=== PATIENT | female | born 1955 | race Caucasian/White ===

== ENCOUNTER → 2016-05-24 | Outpatient (CLI) | payer OTHER ==
[2016-05-24 07:57] LABS: CH 31.2; CHCM 32.9; HDW 2.28; HGB 13.3 gm/dL (11.4-16.0); MCH 30.2 pg (25.0-35.0); MCHC 31.7 g/dL (31.0-37.0); MCV 95.3 fL (80.0-100.0); Mean Platelet Volume 8.3; RBC 4.41 m/uL (3.80-5.40); RDW 12.5 % (11.5-15.5); WBC 7.2 k/uL (3.8-10.6)
[2016-05-24 08:34] LABS: ALT 39 U/L (9-52); AST 32 U/L (14-36); Alkaline Phosphatase 97 U/L (38-126); Anion Gap 10 mmol/L; Blood Urea Nitrogen 13 mg/dL (7-17); Calcium 9.4 mg/dL (8.4-10.2); Carbon Dioxide 25 mmol/L (22-30); Chloride 108 mmol/L (98-107); Cholesterol 213 mg/dL (<200); Glucose 91 mg/dL (74-99); HDL Cholesterol 60 mg/dL (40-60); Non-African American GFR(MDRD) >60 (>60 ml/min/1.73 sqM); Potassium 4.4 mmol/L (3.5-5.1); Sodium 143 mmol/L (137-145); Total Bilirubin 0.6 mg/dL (0.2-1.3); Triglycerides 148 mg/dL (<150)
== END | disposition home or self-care (01) ==
LOC: LABWHC1 07:26
PROVIDERS: ATTEND Internal Medicine
DX: Z13.220 Encounter for screening for lipoid disorders (principal); Z13.9 Encounter for screening, unspecified
CPT/HCPCS: 36415; 80053; 80061; 84443; 85027

== ENCOUNTER → 2017-03-01 | Outpatient (CLI) | payer OTHER ==
--- NOTE | 2017-03-01 15:14 | CT ---
EXAMINATION TYPE: CT sinus wo con DATE OF EXAM: 03/01/2017 COMPARISON: 02/05/2010 HISTORY: Sinusitis, [place] CT DLP: 589 mGycm. Automated Exposure Control for Dose Reduction was Utilized. TECHNIQUE: CT scan of the sinuses is performed without contrast, axial images are obtained, coronal r eformatted images are also reviewed. FINDINGS: The paranasal sinuses including the frontal, ethmoid, sphenoid, and maxillary sinuses bilat erally are well-aerated without abnormal opacification. The ostiomeatal complex is patent bilaterall y on the coronal images. No sami bullosa, Kesha cells, or nasal turbinate mucosal hypertrophy. Fro ntal recesses are patent. Visualized portion of mastoid air cells show no abnormal opacification. The globes are intact bilate rally. Orbits are intact. Exam is not optimized for evaluation of intracranial structures. IMPRESSION: The sinuses are clear and the ostiomeatal complexes are patent. No paranasal sinus diseas e is identified.
== END | disposition home or self-care (01) ==
LOC: RADCTMAIN 13:22
PROVIDERS: ATTEND Otolaryngology
DX: J32.9 Chronic sinusitis, unspecified (principal)
CPT/HCPCS: 70486

== ENCOUNTER → 2017-09-01 | Outpatient (CLI) | payer BC ==
[2017-09-01 11:06] LABS: HCT 42.5 % (34.0-46.0); HGB 13.9 gm/dL (11.4-16.0); MCH 30.3 pg (25.0-35.0); MCHC 32.7 g/dL (31.0-37.0); MCV 92.9 fL (80.0-100.0); Mean Platelet Volume 7.8; Platelet Count 312 k/uL (150-450); RBC 4.57 m/uL (3.80-5.40); RDW 12.6 % (11.5-15.5); WBC 6.5 k/uL (3.8-10.6)
[2017-09-01 11:29] LABS: ALT 42 U/L (9-52); AST 32 U/L (14-36); Albumin 4.2 g/dL (3.5-5.0); Alkaline Phosphatase 95 U/L (38-126); Anion Gap 14 mmol/L; Blood Urea Nitrogen 16 mg/dL (7-17); Calcium 9.5 mg/dL (8.4-10.2); Carbon Dioxide 28 mmol/L (22-30); Chloride 101 mmol/L (98-107); Cholesterol 221 mg/dL (<200); Glucose 83 mg/dL (74-99); HDL Cholesterol 54 mg/dL (40-60); LDL Cholesterol,Calculated 139 mg/dL (0-99); Potassium 4.4 mmol/L (3.5-5.1); Sodium 143 mmol/L (137-145); Total Bilirubin 0.7 mg/dL (0.2-1.3); Total Protein 7.5 g/dL (6.3-8.2); Triglycerides 138 mg/dL (<150)
== END | disposition home or self-care (01) ==
LOC: LABWHC1 09:50
PROVIDERS: ATTEND Internal Medicine
DX: E87.8 Other disorders of electrolyte and fluid balance, not elsewhere classified (principal); E78.4 Other hyperlipidemia; R53.83 Other fatigue
CPT/HCPCS: 36415; 80053; 80061; 85027

== ENCOUNTER → 2018-03-30 | Outpatient (CLI) | payer BC ==
--- NOTE | 2018-03-31 11:17 | MM ---
Reason for exam: screening (asymptomatic). Last mammogram was performed 1 year ago. History: Patient is postmenopausal. Physical Findings: A clinical breast exam by your physician is recommended on an annual basis and results should be correlated with mammographic findings. MG Screening Mammo w CAD Bilateral CC and MLO view(s) were taken. Prior study comparison: March 22, 2017, bilateral MG 3d screening mammo w/cad. March 09, 2016, mammogram, performed at [facility]. There are scattered fibroglandular densities. There is no discrete abnormality. No significant changes when compared with prior studies. ASSESSMENT: Negative, BI-RAD 1 RECOMMENDATION: Routine screening mammogram of both breasts in 1 year.
== END ==
LOC: RADMAMWWP 07:52
PROVIDERS: ATTEND Obstetrics & Gynecology
DX: Z12.31 Encounter for screening mammogram for malignant neoplasm of breast (principal)
CPT/HCPCS: 77067

== ENCOUNTER → 2018-06-16 | Outpatient (CLI) | payer BC ==
--- NOTE | 2018-06-16 16:12 | MR ---
EXAMINATION TYPE: MR lumbar spine wo con DATE OF EXAM: 06/16/2018 COMPARISON: NONE HISTORY: Radiculopathy, lumbar /Spondylosis TECHNIQUE: T1 and T2 axial and sagittal images of the lumbar spine are submitted. FINDINGS: There is no abnormal signal seen within the visualized spinal cord or paraspinal soft tissu es. At T12-L1 there is degenerative disc disease. No disc herniation or canal stenosis. No foraminal encr oachment. At L1-2 there is degenerative disc disease. There is facet arthropathy. No disc herniation or canal s tenosis. No foraminal encroachment. Minimal circumferential disc bulging. At L2-3 there is moderate degenerative disc disease with circumferential disc bulging greater paracen trally and laterally to the right with mild to moderate right foraminal encroachment. Hypertrophy of the facet joints and ligamentum flavum noted. No Canal stenosis. At L3-4 there is degenerative disc disease with circumferential disc bulging and facet arthropathy. T here is mild bilateral foraminal encroachment but no focal herniation or canal stenosis At L4-5 there is degenerative disc disease with broad-based central disc bulging. More advanced facet arthropathy and ligamentum flavum hypertrophy result in borderline to mild central stenosis and bila teral foraminal encroachment. At L5-S1 there is facet arthropathy greater on the left. No focal herniation. Mild circumferential di sc bulging greater laterally to left with mild left-sided foraminal encroachment. No Canal stenosis. Could not exclude a Spondylolysis of L5. No spondylolisthesis. IMPRESSION: 1. Multilevel degenerative disc disease and facet arthropathy result in multilevel foraminal encroach ment as discussed above. 2. Disc bulging paracentrally and greater to the right at L2-L3 extends laterally to the right and mi ld to moderate right foraminal encroachment. 3. Disc bulging and hypertrophic changes L4-L5 results in borderline to mild canal stenosis and bilat eral foraminal encroachment. 4. Disc bulging greater laterally to left L5-S1 results in mild left-sided foraminal encroachment. 5. Upper pole right renal cyst may have a single internal septation recommend follow-up ultrasound. M easures approximately 1.8 cm
== END | disposition home or self-care (01) ==
LOC: RADMRIMAIN 15:00
PROVIDERS: ATTEND Physical Medicine & Rehabilitation
DX: M48.061 Spinal stenosis, lumbar region without neurogenic claudication (principal); M51.16 Intervertebral disc disorders with radiculopathy, lumbar region; M51.17 Intervertebral disc disorders with radiculopathy, lumbosacral region; M46.96 Unspecified inflammatory spondylopathy, lumbar region
CPT/HCPCS: 72148

== ENCOUNTER → 2018-08-03 | Outpatient (CLI) | payer BC ==
--- NOTE | 2018-08-03 14:54 | US ---
EXAMINATION TYPE: US kidneys/renal and bladder DATE OF EXAM: 08/03/2018 COMPARISON: Correlation MRI 06/16/2018 CLINICAL HISTORY: 63-year-old female N28.1 Cyst of kidney, acquired. Right kidney cyst visualized on recent MRI TECHNIQUE: Multiple sonographic images of the kidneys and bladder are obtained. FINDINGS: EXAM MEASUREMENTS: Right Kidney: 9.9 x 5.5 x 4.6 cm Left Kidney: 10.1 x 5.1 x 4.8 cm [facility] [employer] notes:*Technical limitations due to large amount of overlying bowel content Right Kidney: Hypoechoic lesion in the upper pole of the right kidney measures 1.8 x 1.9 x 1.7 cm and seems to correspond to the finding on MRI. A cyst is possible but not diagnostic on the current scan . Left Kidney: no evidence of hydronephrosis Bladder: wnl Bilateral Jets seen: yes IMPRESSION: 1.9 cm right upper pole renal lesion corresponding to the MRI finding. A simple cyst cannot be confir med on ultrasound. A cyst is still possible with echoes representing artifact or debris. Kidney MRI c an provide more definitive tissue characterization and exclude a solid mass.
== END | disposition home or self-care (01) ==
LOC: RADUSWWP 08:44
PROVIDERS: ATTEND Internal Medicine
DX: N28.89 Other specified disorders of kidney and ureter (principal)
CPT/HCPCS: 76770

== ENCOUNTER → 2018-09-05 | Outpatient (CLI) | payer BC ==
[2018-09-05 10:03] LABS: HCT 41.4 % (34.0-46.0); HGB 13.4 gm/dL (11.4-16.0); MCH 30.1 pg (25.0-35.0); MCHC 32.3 g/dL (31.0-37.0); Mean Platelet Volume 8.1; Platelet Count 279 k/uL (150-450); RBC 4.45 m/uL (3.80-5.40); RDW 13.3 % (11.5-15.5); WBC 8.6 k/uL (3.8-10.6)
[2018-09-05 16:05] LABS: Albumin/Globulin Ratio 1.33 (1.60-3.17); Anion Gap 8.5 mmol/L (4.00-12.00); Calcium 9.2 mg/dL (8.7-10.3); Carbon Dioxide 26.5 mmol/L (21.6-31.8); LDL Cholesterol,Calculated 108.2 mg/dL (0.0-131.0); Total Bilirubin 0.7 mg/dL (0.2-1.2); VLDL Calculation 19.8 mg/dL (5.00-40.00)
== END | disposition home or self-care (01) ==
LOC: LABWHC1 07:59
PROVIDERS: ATTEND Internal Medicine
DX: E87.8 Other disorders of electrolyte and fluid balance, not elsewhere classified (principal); E78.41 Elevated Lipoprotein(a); R53.83 Other fatigue
CPT/HCPCS: 36415; 80053; 80061; 85027

== ENCOUNTER 2019-03-12 14:47 | Inpatient (IN) | payer BC ==
[2019-03-12] MEDS ORDERED: SODIUM CHLORIDE 0.9% 1,000 ML IV STA ×2 (15:12→16:14)
[2019-03-12] MEDS ORDERED: KETOROLAC 30 MG/ML 1 ML VIAL IVP STA (15:12)
[2019-03-12 15:21] LABS: Basophils % (A) 0 %; Eosinophils # (A) 0.1 k/uL (0-0.7); Eosinophils % (A) 1 %; HCT 40.6 % (34.0-46.0); HGB 13.2 gm/dL (11.4-16.0); Lymphocytes # (A) 1.9 k/uL (1.0-4.8); Lymphocytes % (A) 19 %; MCH 30.8 pg (25.0-35.0); MCHC 32.5 g/dL (31.0-37.0); MCV 94.8 fL (80.0-100.0); Mean Platelet Volume 7.9; Monocytes # (A) 0.7 k/uL (0-1.0); Monocytes % (A) 7 %; Neutrophils # (A) 6.9 k/uL (1.3-7.7); Neutrophils % (A) 70 %; Platelet Count 279 k/uL (150-450); RBC 4.28 m/uL (3.80-5.40); RDW 12.4 % (11.5-15.5); WBC 9.8 k/uL (3.8-10.6)
[2019-03-12 15:29] LABS: ALT 29 U/L (9-52); AST 20 U/L (14-36); African American GFR (CKD) >90 (>60 ml/min/1.73 sqM); Albumin 3.5 g/dL (3.5-5.0); Alkaline Phosphatase 143 U/L (38-126); Amylase 35 U/L (30-110); Anion Gap 8 mmol/L; Blood Urea Nitrogen 15 mg/dL (7-17); Carbon Dioxide 25 mmol/L (22-30); Chloride 106 mmol/L (98-107); Glucose 108 mg/dL (74-99); Non-African American GFR(CKD) 82 (>60 ml/min/1.73 sqM); Potassium 3.8 mmol/L (3.5-5.1); Sodium 139 mmol/L (137-145)
[2019-03-12 15:33] LABS: INR 0.9 (<1.2); Partial Thromboplastin Time 25.7 sec (22.0-30.0); Prothrombin Time 9.7 sec (9.0-12.0)
--- NOTE | 2019-03-12 15:41 | ED ---
Abdominal Pain HPI - General Chief Complaint: Abdominal Pain Stated Complaint: Abd pain Time Seen by Provider: 03/12/19 14:57 Source: patient Mode of arrival: ambulatory Limitations: no limitations - History of Present Illness Initial Comments: Patient is a 63-year-old female presenting to the emergency Department with complaints of lower abdominal pain as well as right-sided flank pain that has been increasing over the past 3-4 days. Patient states she went to her doctor today who told her she has a UTI but with her abdominal pain she should go into the ER. Patient denies history of kidney stones. Patient describes her pain as very sharp at times and now her lower abdominal pain is described as pressure and even her elastic hands are hurting her. Patient denies any fever, chills, nausea, vomiting, diarrhea. Patient denies any urinary complaints. Patient admits to laparoscopy when she was a teenager, no other abdominal surgeries. Patient has had regular bowel movements. Patient has no other complaints at this time. Upon arrival to the ER, vital signs are stable. - Related Data Allergies Allergy/AdvReac Type Severity Reaction Status Date / Time Sulfa (Sulfonamide Allergy Swelling Verified 03/12/19 14:52 Antibiotics) Review of Systems ROS Statement: Those systems with pertinent positive or pertinent negative responses have been documented in the HPI. ROS Other: All systems not noted in ROS Statement are negative. Past Medical History Past Medical History: Hyperlipidemia Additional Past Medical History / Comment(s): ms History of Any Multi-Drug Resistant Organisms: None Reported Additional Past Surgical History / Comment(s): ganglion cyst removal, expl. lap. fatty tumor fro, left breast Past Psychological History: No Psychological Hx Reported Smoking Status: Never smoker Past Alcohol Use History: None Reported Past Drug Use History: None Reported General Exam - General Exam Comments Initial Comments: GENERAL: Well-appearing, well-nourished and in no acute distress, but appears uncomfortable. HEAD: Atraumatic, normocephalic. EYES: Pupils equal round and reactive to light, extraocular movements intact, sclera anicteric, conjunctiva are normal. ENT: Nares patent, oropharynx clear without exudates. Moist mucous membranes. NECK: Normal range of motion, supple without lymphadenopathy or JVD. LUNGS: Breath sounds clear to auscultation bilaterally and equal. No wheezes rales or rhonchi. HEART: Regular rate and rhythm without murmurs, rubs or gallops. ABDOMEN: Tender to palpation in the lower abdomen, right and left lower quadrants. No flank tenderness. Soft, normoactive bowel sounds. No guarding, no rebound. No masses appreciated. : Deferred EXTREMITIES: Normal range of motion, no pitting or edema. No clubbing or cyanosis. NEUROLOGICAL: Normal speech, normal gait. PSYCH: Normal mood, normal affect. SKIN: Warm, Dry, normal turgor, no rashes or lesions noted. Limitations: no limitations Course Vital Signs 03/12/19 03/12/19 14:48 15:47 Temperature 98.5 F Pulse Rate 133 H 110 H Respiratory 18 16 Rate Blood Pressure 158/93 128/79 O2 Sat by Pulse 99 99 Oximetry Medical Decision Making - Medical Decision Making Patient is 63-year-old female presenting with lower abdominal pain has been increasing over the past 4 days. Patient is tachycardia at 133, rest of vitals are normal, afebrile. Lab work shows no acute abnormalities. Urine is normal. CT the abdomen reveals a new pneumoperitoneum, with suspicious for developing abscess. Patient was given fluids, pain control. Dr. Black was consulted and patient will be admitted for surgical intervention. Dr. Black is requesting a CT with oral contrast. Test is pending at this time. Patient was given dose of Zosyn. Case discussed with Dr. Mendoza. - Lab Data Result diagrams: 03/12/19 15:05 03/12/19 15:05 Lab Results 03/12/19 03/12/19 03/12/19 Range/Units 15:05 15:05 15:05 WBC 9.8 (3.8-10.6) k/uL RBC 4.28 (3.80-5.40) m/uL Hgb 13.2 (11.4-16.0) gm/dL Hct 40.6 (34.0-46.0) % MCV 94.8 (80.0-100.0) fL MCH 30.8 (25.0-35.0) pg MCHC 32.5 (31.0-37.0) g/dL RDW 12.4 (11.5-15.5) % Plt Count 279 (150-450) k/uL Neutrophils % 70 % Lymphocytes % 19 % Monocytes % 7 % Eosinophils % 1 % Basophils % 0 % Neutrophils # 6.9 (1.3-7.7) k/uL Lymphocytes # 1.9 (1.0-4.8) k/uL Monocytes # 0.7 (0-1.0) k/uL Eosinophils # 0.1 (0-0.7) k/uL Basophils # 0.0 (0-0.2) k/uL PT 9.7 (9.0-12.0) sec INR 0.9 (<1.2) APTT 25.7 (22.0-30.0) sec Sodium 139 (137-145) mmol/L Potassium 3.8 (3.5-5.1) mmol/L Chloride 106 (98-107) mmol/L Carbon Dioxide 25 (22-30) mmol/L Anion Gap 8 mmol/L BUN 15 (7-17) mg/dL Creatinine 0.77 (0.52-1.04) mg/dL Est GFR (CKD-EPI)AfAm >90 (>60 ml/min/1.73 sqM) Est GFR (CKD-EPI)NonAf 82 (>60 ml/min/1.73 sqM) Glucose 108 H (74-99) mg/dL Calcium 9.0 (8.4-10.2) mg/dL Total Bilirubin 1.0 (0.2-1.3) mg/dL AST 20 (14-36) U/L ALT 29 (9-52) U/L Alkaline Phosphatase 143 H (38-126) U/L Total Protein 7.0 (6.3-8.2) g/dL Albumin 3.5 (3.5-5.0) g/dL Amylase 35 (30-110) U/L Lipase 76 (23-300) U/L Urine Color Urine Appearance (Clear) Urine pH (5.0-8.0) Ur Specific [place] (1.001-1.035) Urine Protein (Negative) Urine Glucose (UA) (Negative) Urine Ketones (Negative) Urine Blood (Negative) Urine Nitrite (Negative) Urine Bilirubin (Negative) Urine Urobilinogen (<2.0) mg/dL Ur Leukocyte Esterase (Negative) Urine RBC (0-5) /hpf Urine WBC (0-5) /hpf Ur Squamous Epith Cells (0-4) /hpf Calcium Oxalate Crystal (None) /hpf Urine Mucus (None) /hpf 03/12/19 Range/Units 15:30 WBC (3.8-10.6) k/uL RBC (3.80-5.40) m/uL Hgb (11.4-16.0) gm/dL Hct (34.0-46.0) % MCV (80.0-100.0) fL MCH (25.0-35.0) pg MCHC (31.0-37.0) g/dL RDW (11.5-15.5) % Plt Count (150-450) k/uL Neutrophils % % Lymphocytes % % Monocytes % % Eosinophils % % Basophils % % Neutrophils # (1.3-7.7) k/uL Lymphocytes # (1.0-4.8) k/uL Monocytes # (0-1.0) k/uL Eosinophils # (0-0.7) k/uL Basophils # (0-0.2) k/uL PT (9.0-12.0) sec INR (<1.2) APTT (22.0-30.0) sec Sodium (137-145) mmol/L Potassium (3.5-5.1) mmol/L Chloride (98-107) mmol/L Carbon Dioxide (22-30) mmol/L Anion Gap mmol/L BUN (7-17) mg/dL Creatinine (0.52-1.04) mg/dL Est GFR (CKD-EPI)AfAm (>60 ml/min/1.73 sqM) Est GFR (CKD-EPI)NonAf (>60 ml/min/1.73 sqM) Glucose (74-99) mg/dL Calcium (8.4-10.2) mg/dL Total Bilirubin (0.2-1.3) mg/dL AST (14-36) U/L ALT (9-52) U/L Alkaline Phosphatase (38-126) U/L Total Protein (6.3-8.2) g/dL Albumin (3.5-5.0) g/dL Amylase (30-110) U/L Lipase (23-300) U/L Urine Color Yellow Urine Appearance Cloudy H (Clear) Urine pH 5.5 (5.0-8.0) Ur Specific [place] 1.030 (1.001-1.035) Urine Protein 1+ H (Negative) Urine Glucose (UA) Negative (Negative) Urine Ketones Negative (Negative) Urine Blood Small H (Negative) Urine Nitrite Negative (Negative) Urine Bilirubin Negative (Negative) Urine Urobilinogen 2.0 (<2.0) mg/dL Ur Leukocyte Esterase Small H (Negative) Urine RBC 5 (0-5) /hpf Urine WBC 2 (0-5) /hpf Ur Squamous Epith Cells 1 (0-4) /hpf Calcium Oxalate Crystal Moderate H (None) /hpf Urine Mucus Many H (None) /hpf Disposition Clinical Impression: Acute abdomen, Pneumoperitoneum Disposition: ADMITTED IP TO THIS HOSP Condition: Good Is patient prescribed a controlled substance at d/c from ED?: No Referrals: Sena Dorsey MD [Primary Care Provider] - 1-2 days Decision Date: 03/12/19 Decision Time: 16:18
--- NOTE | 2019-03-12 15:57 | CT ---
EXAMINATION TYPE: CT abdomen pelvis w con DATE OF EXAM: 03/12/2019 HISTORY: Right lower quadrant pain. CT DLP: 1167mGycm Automated Exposure Control for Dose Reduction was Utilized. CONTRAST: CT scan of the abdomen and pelvis is performed without oral with IV Contrast, patient injected with 1 00 mL of Isovue 300. COMPARISON: None. FINDINGS: LUNG BASES: No significant abnormality is appreciated. LIVER/GB: Contracted gallbladder. PANCREAS: No significant abnormality is seen. SPLEEN: No significant abnormality is seen. ADRENALS: No significant abnormality is seen. KIDNEYS: Nonspecific 1.6 cm slightly hyperdense rounded lesion posteriorly and medially upper pole le ft kidney has suggestion of peripheral rim enhancement. Neoplasm at this level cannot be excluded. Fi ndings correlate to MRI lumbar spine and kidney ultrasound from June and July. BOWEL: Suboptimal evaluation without enteric contrast. There is normal-appearing appendix extending f rom cecum seen best on coronal image 55 for reference. There is no suspicious small or large bowel di latation. Some scattered colonic diverticula most prominent in the sigmoid colon. Mild to moderate wa ll thickening in the sigmoid colon is present. Terminal ileum is poorly distended with mild wall thic kening. There is mild to moderate wall thickening involving distal ileal loops in the right pelvis wi th surrounding ill-defined fluid and fat stranding centered in the pelvis. Just superior to the bladd er left of midline there is thin-walled 3.1 x 2.0 cm fluid collection with air-fluid level axial imag e 77. There is significant pneumoperitoneum most prominent in the upper abdomen. UTERUS/ADNEXA: Anteverted uterus is seen. Central hypodense areas are somewhat prominent for postmeno pausal female. No adnexal masses. LYMPH NODES: No greater than 1cm abdominal or pelvic lymph nodes are appreciated. OSSEOUS STRUCTURES: No significant abnormality is seen. OTHER: No significant additional abnormality is seen. IMPRESSION: 1. New pneumoperitoneum most prominent in the upper abdomen. Moderate inflammatory change throughout the pelvis with reactive enterocolitis thought present. Suspicious small thin-walled fluid near infla mmatory change is suspicious for developing abscess. Source of inflammation perforation not clearly i dentified. Urgent surgical consult is advised. 2. Posterior medial upper pole right renal lesion remains suspicious, peripheral rim type enhancement is thought present, neoplasm cannot be excluded. Nonemergent surgical and/or interventional follow-u p advised. 3. Some prominence of the central endometrium for postmenopausal female warrants follow-up with pelvi c ultrasound to further evaluate. Critical results of pneumoperitoneum conveyed to ordering emergency care room physician clinical education assistant via telephone at time of dictation.
[2019-03-12] MEDS ORDERED: PIPERACILLIN-TAZOBACTAM 3.375 GM in SODIUM CHLORIDE 0.9% 100 ML IVPB STA (16:01)
[2019-03-12] MEDS ORDERED: MORPHINE SULFATE 4 MG/ML SYRINGE IVP STA ×2 (16:05→18:39)
[2019-03-12] MEDS ORDERED: IOPAMIDOL CONTRAST (ORAL USE) VIAL PO PRN (16:09)
[2019-03-12 16:14] LABS: Appearance,Urine Cloudy (Clear); Bilirubin,Urine Negative (Negative); Blood,Urine Small (Negative); Calcium Oxalate Crystals,Urine Moderate /hpf; Color,Urine Yellow; Glucose,Urine (UA) Negative (Negative); Ketones,Urine Negative (Negative); Leukocyte Esterase,Urine Small (Negative); Mucus,Urine Many /hpf; Nitrite,Urine Negative (Negative); PH, Urine 5.5 (5.0-8.0); Protein,Urine 1+ (Negative); RBC,Urine 5 /hpf (0-5); Squamous Epithelial Cell,Urine 1 /hpf (0-4); WBC,Urine 2 /hpf (0-5)
[2019-03-12] MEDS ORDERED: MORPHINE SULFATE 4 MG/ML SYRINGE IV PRN (16:17)
[2019-03-12] MEDS ORDERED: NALOXONE 0.4 MG/ML 1 ML VIAL IV PRN (16:17)
[2019-03-12] MEDS ORDERED: ONDANSETRON 4 MG/2 ML VIAL IVP PRN (16:17)
[2019-03-12] MEDS: SODIUM CHLORIDE 0.9% 1,000 ML IV SCH (16:31)
--- NOTE | 2019-03-12 18:42 | CT ---
EXAMINATION TYPE: CT abdomen pelvis wo con DATE OF EXAM: 03/12/2019 COMPARISON: 03/12/2019 HISTORY: Abdominal pain CT DLP: 743.3 mGycm Automated exposure control for dose reduction was used. TECHNIQUE: Helical acquisition of images was performed from the lung bases through the pelvis. Contr ast was administered per protocol. FINDINGS: LUNG BASES: No significant abnormality is appreciated. LIVER/GB: Unremarkable unenhanced morphology. No radiopaque calculi in the gallbladder. PANCREAS: No significant abnormality is seen. SPLEEN: No splenomegaly. ADRENALS: No nodules or thickening of the adrenal glands. KIDNEYS: Approximately 1.6 cm upper pole renal lesion is somewhat suspicious and complex. This could be further evaluated with renal ultrasound or MRI of the abdomen. FREE AIR: Yes as detailed below ADENOPATHY: No greater than 1cm abdominal or pelvic lymph nodes are appreciated. REPRODUCTIVE ORGANS: Uterus is surgically absent URINARY BLADDER: No significant abnormality is seen. OSSEOUS STRUCTURES: No significant abnormality is seen. BOWEL: There is redemonstration of a fluid collection that has increased in size slightly from the p rior of 03/12/2019 cranial to the urinary bladder and anterior to the uterus demonstrating an air-flui d level now measuring 3.5 x 2.0 cm and previously measuring 3.1 x 2.0 cm. There is local inflammatory fat stranding in the pelvis surrounding both the sigmoid colon and loops of small bowel. Small amoun t of free fluid is also seen. Numerous oral contrast extends to the level of the transverse colon. No focal contrast extravasation is seen. There is some thickening of the gastric antrum. There is also thickening of the sigmoid colon. Sigmoid diverticula are present as well as other pancolonic divertic cb. Appendix is air-filled and within normal limits. No dilated large or small bowel. There are nume braydon foci of pneumoperitoneum as seen on the prior. IMPRESSION: REDEMONSTRATION OF PNEUMOPERITONEUM COMMUNICATED WITH THE ER ON THE STUDY EARLIER THE SAME DATE. O RAL CONTRAST HAS BEEN ADMINISTERED ALTHOUGH NO EXTRAVASATION IS SEEN. THERE IS FOCAL THICKENING OF TH E SIGMOID COLON AND GASTRIC ANTRUM AND SOURCE COULD RELATE TO PERFORATED DIVERTICULITIS (MORE LIKELY THERE ARE PHLEGMONOUS CHANGES IN THE PELVIS AND A SMALL ADJACENT ABSCESS) OR PEPTIC ULCER DISEASE OF THE GASTRIC ANTRUM.
[2019-03-12] MEDS ORDERED: HYDROmorphone 1 MG/ML 1 ML SYRINGE IVP STA (18:48)
[2019-03-12] MEDS: HYDROmorphone 1 MG/ML 1 ML SYRINGE IVP PRN (22:05)
[2019-03-13] MEDS: HYDROmorphone 1 MG/ML 1 ML SYRINGE IVP PRN ×2 (02:15→06:48)
[2019-03-13] MEDS: PANTOPRAZOLE 40 MG/10 ML VIAL IV SCH (08:21)
[2019-03-13] MEDS: SODIUM CHLORIDE 0.9% 1,000 ML IV SCH ×2 (08:21→19:56)
[2019-03-13] MEDS ORDERED: FAMOTIDINE 20 MG TAB PO PRN (09:16)
[2019-03-13] MEDS: PIPERACILLIN-TAZOBACTAM 3.375 GM in SODIUM CHLORIDE 0.9% 100 ML IVPB SCH ×3 (09:43→23:03)
[2019-03-13 10:12] LABS: HCT 34.4 % (34.0-46.0); HGB 11.5 gm/dL (11.4-16.0); MCH 31.8 pg (25.0-35.0); MCHC 33.5 g/dL (31.0-37.0); MCV 94.9 fL (80.0-100.0); Mean Platelet Volume 6.7; Platelet Count 269 k/uL (150-450); RBC 3.63 m/uL (3.80-5.40); RDW 12.5 % (11.5-15.5); WBC 9.7 k/uL (3.8-10.6)
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
[2019-03-13 10:17] LABS: INR 0.9 (<1.2); Prothrombin Time 9.5 sec (9.0-12.0)
[2019-03-13 10:21] LABS: ALT 26 U/L (9-52); AST 16 U/L (14-36); African American GFR (CKD) >90 (>60 ml/min/1.73 sqM); Alkaline Phosphatase 121 U/L (38-126); Anion Gap 7 mmol/L; Blood Urea Nitrogen 14 mg/dL (7-17); Calcium 8.7 mg/dL (8.4-10.2); Carbon Dioxide 24 mmol/L (22-30); Chloride 108 mmol/L (98-107); Glucose 77 mg/dL (74-99); Magnesium 1.8 mg/dL (1.6-2.3); Non-African American GFR(CKD) >90 (>60 ml/min/1.73 sqM); Phosphorus 3.6 mg/dL (2.5-4.5); Potassium 4.1 mmol/L (3.5-5.1); Sodium 139 mmol/L (137-145); Total Bilirubin 1.2 mg/dL (0.2-1.3); Total Protein 6.4 g/dL (6.3-8.2)
[2019-03-13] MEDS: KETOROLAC 30 MG/ML 1 ML VIAL IVP PRN ×2 (10:48→17:14)
[2019-03-13] MEDS: ACETAMINOPHEN TAB 325 MG TAB PO PRN (16:01)
--- NOTE | 2019-03-13 16:04 | P.GSHP ---
History of Present Illness H&P Date: 03/13/19 CHIEF COMPLAINT: Abdominal pain HISTORY OF PRESENT ILLNESS: 63-year-old female who presented to the emergency room with a chief complaint of abdominal pain. Patient underwent CT abdomen and pelvis in the emergency room revealing pneumoperitoneum. Focal thickening of the sigmoid colon and gastric antrum. Source could relate to perforated diverticulitis as there are phlegmonous changes in the pelvis and a small adjacent abscess or possible peptic ulcer disease of the gastric antrum. WBC within normal limits. Patient reports improvement in abdominal pain during examination. Currently rating 4/10. She is passing flatus. PAST MEDICAL HISTORY: See list. PAST SURGICAL HISTORY: See list. SOCIAL HISTORY: No illicit drug use. REVIEW OF SYSTEMS: CONSTITUTIONAL: Denies fever or chills. HEENT: Denies blurred vision, vision changes, or eye pain. Denies hemoptysis CARDIOVASCULAR: Denies chest pain or pressure. RESPIRATORY: No shortness of breath. GASTROINTESTINAL: Refer to HPI for pertinent findings HEMATOLOGIC: Denies bleeding disorders. GENITOURINARY: Denies any blood in urine. SKIN: Denies pruitis. Denies rash. PHYSICAL EXAM: VITAL SIGNS: Reviewed. GENERAL: Well-developed in no acute distress. HEENT: No sclera icterus. Extraocular movements grossly intact. Moist buccal mucosa. Head is atraumatic, normocephalic. ABDOMEN: Soft. Nondistended. Minimal tenderness of bilateral lower quadrants. No peritoneal signs. NEUROLOGIC: Alert and oriented. Cranial nerves II through XII grossly intact. ASSESSMENT: 1. Pneumoperitoneum, suspect secondary to diverticulitis with perforation, cannot rule out peptic ulcer disease as computed tomography scan revealed thickening of the gastric antrum. PLAN: NPO except for ice chips Continue antibiotics No surgical intervention recommended at this time Outpatient EGD recommended Nurse practitioner note has been reviewed by physician. Signing provider agrees with the documented findings, assessment, and plan of care. 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, fatty tumor from below right breast breast Past Anesthesia/Blood Transfusion Reactions: No Reported Reaction Past Psychological History: No Psychological Hx Reported Smoking Status: Former smoker Past Alcohol Use History: Rare Past Drug Use History: None Reported - Past Family History Mother Family Medical History: Asthma Additional Family Medical History / Comment(s): diverticulitis Father Family Medical History: Coronary Artery Disease (CAD), Hypertension Medications and Allergies Home Medications Medication Instructions Recorded Confirmed Type Baclofen 10 mg PO HS 03/12/19 03/12/19 History Famotidine [Pepcid] 20 mg PO BID PRN 03/12/19 03/12/19 History Ibuprofen [Motrin] 800 mg PO BID PRN 03/12/19 03/12/19 History Montelukast [Singulair] 10 mg PO HS 03/12/19 03/12/19 History Allergies Allergy/AdvReac Type Severity Reaction Status Date / Time Sulfa (Sulfonamide Allergy Swelling Verified 03/12/19 18:30 Antibiotics) Surgical - Exam Vital Signs Temp Pulse Resp BP Pulse Ox 98.5 F 133 H 18 158/93 99 03/12/19 14:48 03/12/19 14:48 03/12/19 14:48 03/12/19 14:48 03/12/19 14:48 Results - Labs 03/13/19 09:35 03/13/19 09:35 Abnormal Lab Results - Last 24 Hours (Table) 03/12/19 03/13/19 03/13/19 Range/Units 15:30 09:35 09:35 RBC 3.63 L (3.80-5.40) m/uL Chloride 108 H (98-107) mmol/L Albumin 3.0 L (3.5-5.0) g/dL Urine Appearance Cloudy H (Clear) Urine Protein 1+ H (Negative) Urine Blood Small H (Negative) Ur Leukocyte Esterase Small H (Negative) Calcium Oxalate Crystal Moderate H (None) /hpf Urine Mucus Many H (None) /hpf Diabetes panel 03/13/19 Range/Units 09:35 Sodium 139 (137-145) mmol/L Potassium 4.1 (3.5-5.1) mmol/L Chloride 108 H (98-107) mmol/L Carbon Dioxide 24 (22-30) mmol/L BUN 14 (7-17) mg/dL Creatinine 0.71 (0.52-1.04) mg/dL Glucose 77 (74-99) mg/dL Calcium 8.7 (8.4-10.2) mg/dL AST 16 (14-36) U/L ALT 26 (9-52) U/L Alkaline Phosphatase 121 (38-126) U/L Total Protein 6.4 (6.3-8.2) g/dL Albumin 3.0 L (3.5-5.0) g/dL Calcium panel 03/13/19 Range/Units 09:35 Calcium 8.7 (8.4-10.2) mg/dL Phosphorus 3.6 (2.5-4.5) mg/dL Albumin 3.0 L (3.5-5.0) g/dL Pituitary panel 03/13/19 Range/Units 09:35 Sodium 139 (137-145) mmol/L Potassium 4.1 (3.5-5.1) mmol/L Chloride 108 H (98-107) mmol/L Carbon Dioxide 24 (22-30) mmol/L BUN 14 (7-17) mg/dL Creatinine 0.71 (0.52-1.04) mg/dL Glucose 77 (74-99) mg/dL Calcium 8.7 (8.4-10.2) mg/dL Adrenal panel 03/13/19 Range/Units 09:35 Sodium 139 (137-145) mmol/L Potassium 4.1 (3.5-5.1) mmol/L Chloride 108 H (98-107) mmol/L Carbon Dioxide 24 (22-30) mmol/L BUN 14 (7-17) mg/dL Creatinine 0.71 (0.52-1.04) mg/dL Glucose 77 (74-99) mg/dL Calcium 8.7 (8.4-10.2) mg/dL Total Bilirubin 1.2 (0.2-1.3) mg/dL AST 16 (14-36) U/L ALT 26 (9-52) U/L Alkaline Phosphatase 121 (38-126) U/L Total Protein 6.4 (6.3-8.2) g/dL Albumin 3.0 L (3.5-5.0) g/dL
[2019-03-13] MEDS: BACLOFEN 10 MG TAB PO SCH (19:55)
[2019-03-13] MEDS: MONTELUKAST 10 MG TAB PO SCH (19:55)
[2019-03-14] MEDS: SODIUM CHLORIDE 0.9% 1,000 ML IV SCH (04:38)
[2019-03-14] MEDS: KETOROLAC 30 MG/ML 1 ML VIAL IVP PRN ×3 (05:36→22:01)
[2019-03-14 07:48] LABS: HGB 10.1 gm/dL (11.4-16.0); MCH 30.6 pg (25.0-35.0); MCHC 32.4 g/dL (31.0-37.0); MCV 94.3 fL (80.0-100.0); Mean Platelet Volume 7.9; Platelet Count 227 k/uL (150-450); RBC 3.29 m/uL (3.80-5.40); RDW 12.3 % (11.5-15.5); WBC 9.3 k/uL (3.8-10.6)
[2019-03-14 08:01] LABS: African American GFR (CKD) >90 (>60 ml/min/1.73 sqM); Anion Gap 10 mmol/L; Blood Urea Nitrogen 13 mg/dL (7-17); Calcium 8.2 mg/dL (8.4-10.2); Carbon Dioxide 19 mmol/L (22-30); Chloride 110 mmol/L (98-107); Glucose 51 mg/dL (74-99); Non-African American GFR(CKD) 88 (>60 ml/min/1.73 sqM); Potassium 3.7 mmol/L (3.5-5.1); Sodium 139 mmol/L (137-145)
[2019-03-14] MEDS: PIPERACILLIN-TAZOBACTAM 3.375 GM in SODIUM CHLORIDE 0.9% 100 ML IVPB SCH ×2 (08:33→15:31)
[2019-03-14] MEDS: BACLOFEN 10 MG TAB PO SCH ×2 (08:34→21:48)
[2019-03-14] MEDS: PANTOPRAZOLE 40 MG/10 ML VIAL IV SCH (08:34)
[2019-03-14] MEDS ORDERED: HYDROcodone/APAP 5-325MG 1 EACH TAB PO PRN (10:10)
--- NOTE | 2019-03-14 10:11 | P.PN ---
Subjective Progress Note Date: 03/14/19 Principal diagnosis: abdominal pain Patient is a 63-year-old female patient of Dr. Dorsey with a past medical history of multiple sclerosis, degenerative disc disease, and chronic low back pain who presented to the hospital with complaints of abdominal pain. In the ER she underwent an extensive evaluation. She was found to be tachycardic on arrival with a pulse of 133. She was mildly hypertensive with a blood pressure 158/93. Initial laboratory analysis was essentially unremarkable. She underwent CT abd and pelvis which showed pneumoperitoneum, surgery was consulted and she had a repeat CT abdomen and pelvis with oral contrast which showed again pneumoperitoneum but no extravasation of contrast but thickening of the sigmoid colon and gastic antrum associated with possible diverticulitis. She was given a dose of Zosyn, IV fluids, and pain medications. She was admitted for perforated diverticulitis. She was maintained on IV fluids and IV antibiotics. She progressed well over 24 hours in the hospital stay. Patient seen and examined at bedside. Feeling much improved today compared to yesterday. Belly pain has lessened. Has been up and walking and no longer has to hold her lower abdomen in order to move. Reports that she had 1 formed bowel movement yesterday. Tolerated ice chips well without any increased abdominal pain or nausea. Discussed importance of follow-up and recommendations for a colonoscopy in 4-6 weeks after resolution of Objective - Vital Signs Vital signs: Vital Signs Temp 97.6 F 03/14/19 07:00 Pulse 86 03/14/19 07:00 Resp 16 03/14/19 07:00 BP 122/76 03/14/19 07:00 Pulse Ox 98 03/14/19 07:00 Intake & Output 03/13/19 03/14/19 03/14/19 18:59 06:59 18:59 Intake Total 637.5 Balance 637.5 Intake: Intake, IV Titration 637.5 Amount Piperacillin-Tazobactam 3 200 .375 gm In Sodium Chloride 0.9% 100 ml @ 25 mls/hr IVPB Q8HR [facility] Rx# :[id number] Sodium Chloride 0.9% 1, 437.5 000 ml @ 125 mls/hr IV . Q8H [facility] Rx#:[id number] Other: Voiding Method Toilet # Voids 2 - Exam General: non toxic, no distress, appears at stated age Derm: warm, dry Head: atraumatic, normocephalic, symmetric Eyes: EOMI, no lid lag, anicteric sclera Mouth: no lip lesion, mucus membranes moist Cardiovascular: S1S2 reg, no murmur, positive posterior tibial pulse bilateral, Lungs: decreased breath sounds bilateral, no rhonchi, no rales , no accessory muscle use Abdominal: decreased bs bilateral, soft, nontender to palpation diffusely, no guarding, no appreciable organomegaly Ext: no gross muscle atrophy, no edema, no contractures Neuro: CN II-XI grossly intact, no focal neuro deficits Psych: Alert, oriented, appropriate affect - Labs CBC & Chem 7: 03/14/19 07:29 03/14/19 07:29 Labs: Abnormal Lab Results - Last 24 Hours (Table) 03/13/19 03/13/19 03/14/19 Range/Units 09:35 09:35 07:29 RBC 3.63 L 3.29 L (3.80-5.40) m/uL Hgb 10.1 L (11.4-16.0) gm/dL Hct 31.0 L (34.0-46.0) % Chloride 108 H (98-107) mmol/L Carbon Dioxide (22-30) mmol/L Glucose (74-99) mg/dL Calcium (8.4-10.2) mg/dL Albumin 3.0 L (3.5-5.0) g/dL 03/14/19 Range/Units 07:29 RBC (3.80-5.40) m/uL Hgb (11.4-16.0) gm/dL Hct (34.0-46.0) % Chloride 110 H (98-107) mmol/L Carbon Dioxide 19 L (22-30) mmol/L Glucose 51 L (74-99) mg/dL Calcium 8.2 L (8.4-10.2) mg/dL Albumin (3.5-5.0) g/dL Microbiology - Last 24 Hours (Table) 03/12/19 16:12 Blood Culture - Preliminary Blood No Growth after 24 hours Assessment and Plan Assessment: Pneumoperitoneum due to diverticulitis with perforation -IV fluids decreased -IV antibiotics -Pain control -clear liquid today -Antiemetics -Surgery recommendations Hyperchloremic metabolic acidosis - change IV to 0.45 NS to limit chloride. Anemia - suspect dilutional as was normal on admission - follow CBC in AM Multiple sclerosis - home baclofen -Hold home Motrin Acid reflux -IV PPI once daily ttoday and transition to oral in AM Clinical dehydration, resolved DVT prophylaxis: SCDs Discussed with: patient Anticipated discharge: per surgery Anticipated discharge place: home A total of 65 minutes was spent on the care of this complex patient more than 50% of the time was spent in counseling and care coordination.
--- NOTE | 2019-03-14 11:26 | P.PN ---
Subjective Progress Note Date: 03/14/19 CHIEF COMPLAINT: Abdominal pain HISTORY OF PRESENT ILLNESS: Patient examined at the bedside. She reports minimal abdominal pain. She denies nausea or vomiting. Tolerating ice chips. Passing flatus. Reports BM yesterday. WBC within normal limits. Vital signs stable. She is afebrile. PHYSICAL EXAM: VITAL SIGNS: Reviewed. GENERAL: Well-developed in no acute distress. HEENT: No sclera icterus. Extraocular movements grossly intact. Moist buccal mucosa. Head is atraumatic, normocephalic. ABDOMEN: Soft. Nondistended. Nontender with palpation. No peritoneal signs. NEUROLOGIC: Alert and oriented. Cranial nerves II through XII grossly intact. ASSESSMENT: 1. Pneumoperitoneum, suspect secondary to diverticulitis with perforation, cannot rule out peptic ulcer disease as computed tomography scan revealed thicke yahaira of the gastric antrum. PLAN: Begin clear liquid diet Continue antibiotics No surgical intervention recommended at this time Outpatient EGD recommended due to thickening of gastric antrum on CT scan Will require outpatient colonoscopy in 4-6 weeks Nurse practitioner note has been reviewed by physician. Signing provider agrees with the documented findings, assessment, and plan of care. Objective - Vital Signs Vital signs: Vital Signs Temp 97.6 F 03/14/19 07:00 Pulse 86 03/14/19 07:00 Resp 16 03/14/19 08:00 BP 122/76 03/14/19 07:00 Pulse Ox 98 03/14/19 07:00 Intake & Output 03/13/19 03/14/19 03/14/19 18:59 06:59 18:59 Intake Total 637.5 Balance 637.5 Intake: Intake, IV Titration 637.5 Amount Piperacillin-Tazobactam 3 200 .375 gm In Sodium Chloride 0.9% 100 ml @ 25 mls/hr IVPB Q8HR [facility] Rx# :[id number] Sodium Chloride 0.9% 1, 437.5 000 ml @ 125 mls/hr IV . Q8H [facility] Rx#:[id number] Other: Voiding Method Toilet # Voids 2 - Labs CBC & Chem 7: 03/14/19 07:29 03/14/19 07:29 Labs: Abnormal Lab Results - Last 24 Hours (Table) 03/14/19 03/14/19 Range/Units 07:29 07:29 RBC 3.29 L (3.80-5.40) m/uL Hgb 10.1 L (11.4-16.0) gm/dL Hct 31.0 L (34.0-46.0) % Chloride 110 H (98-107) mmol/L Carbon Dioxide 19 L (22-30) mmol/L Glucose 51 L (74-99) mg/dL Calcium 8.2 L (8.4-10.2) mg/dL Microbiology - Last 24 Hours (Table) 03/12/19 16:12 Blood Culture - Preliminary Blood No Growth after 24 hours
[2019-03-14] MEDS: SODIUM CHLORIDE 0.45% 1,000 ML IV SCH (14:53)
[2019-03-14] MEDS: MONTELUKAST 10 MG TAB PO SCH (21:48)
[2019-03-15] MEDS: PIPERACILLIN-TAZOBACTAM 3.375 GM in SODIUM CHLORIDE 0.9% 100 ML IVPB SCH ×4 (00:14→19:26)
[2019-03-15] MEDS: SODIUM CHLORIDE 0.45% 1,000 ML IV SCH ×3 (00:21→15:26)
[2019-03-15] MEDS: PANTOPRAZOLE 40 MG/10 ML VIAL IV SCH (08:26)
[2019-03-15] MEDS: BACLOFEN 10 MG TAB PO SCH ×2 (08:26→19:25)
[2019-03-15 08:39] LABS: HCT 30.5 % (34.0-46.0); HGB 10.3 gm/dL (11.4-16.0); MCH 31.6 pg (25.0-35.0); MCHC 33.7 g/dL (31.0-37.0); MCV 93.6 fL (80.0-100.0); Mean Platelet Volume 6.8; Platelet Count 289 k/uL (150-450); RBC 3.26 m/uL (3.80-5.40); RDW 12.3 % (11.5-15.5); WBC 6.8 k/uL (3.8-10.6)
[2019-03-15 08:48] LABS: African American GFR (CKD) >90 (>60 ml/min/1.73 sqM); Anion Gap 8 mmol/L; Blood Urea Nitrogen 10 mg/dL (7-17); Calcium 8.5 mg/dL (8.4-10.2); Carbon Dioxide 23 mmol/L (22-30); Chloride 109 mmol/L (98-107); Glucose 85 mg/dL (74-99); Magnesium 1.9 mg/dL (1.6-2.3); Non-African American GFR(CKD) 88 (>60 ml/min/1.73 sqM); Phosphorus 3.3 mg/dL (2.5-4.5); Potassium 3.5 mmol/L (3.5-5.1); Sodium 140 mmol/L (137-145)
[2019-03-15] MEDS: IOPAMIDOL CONTRAST (ORAL USE) VIAL PO PRN ×2 (09:45→10:43)
--- NOTE | 2019-03-15 09:58 | P.PN ---
Subjective Progress Note Date: 03/15/19 Principal diagnosis: abdominal pain Patient is a 63-year-old female patient of Dr. Dorsey with a past medical history of multiple sclerosis, degenerative disc disease, and chronic low back pain who presented to the hospital with complaints of abdominal pain. In the ER she underwent an extensive evaluation. She was found to be tachycardic on arrival with a pulse of 133. She was mildly hypertensive with a blood pressure 158/93. Initial laboratory analysis was essentially unremarkable. She underwent CT abd and pelvis which showed pneumoperitoneum, surgery was consulted and she had a repeat CT abdomen and pelvis with oral contrast which showed again pneumoperitoneum but no extravasation of contrast but thickening of the sigmoid colon and gastic antrum associated with possible diverticulitis. She was given a dose of Zosyn, IV fluids, and pain medications. She was admitted for perforated diverticulitis. She was maintained on IV fluids and IV antibiotics. She progressed well over 24 hours in the hospital stay. She was tolerated on a clear liquid diet on 03/14 and tolerated this well. Patient seen and examined at bedside. No Pain today has walked 8 laps. No chest pain, sob, or nausea. Tolerated diet well. 2 normal bowel movements. Objective - Vital Signs Vital signs: Vital Signs Temp 98.6 F 03/15/19 07:00 Pulse 89 03/15/19 07:00 Resp 18 03/15/19 07:00 BP 144/78 03/15/19 07:00 Pulse Ox 96 03/15/19 07:00 Intake & Output 03/14/19 03/15/19 03/15/19 18:59 06:59 18:59 Intake Total 200 Balance 200 Intake: Oral 200 Other: # Voids 2 1 - Exam General: non toxic, no distress, appears at stated age Derm: warm, dry Head: atraumatic, normocephalic, symmetric Eyes: EOMI, no lid lag, anicteric sclera Mouth: no lip lesion, mucus membranes moist Cardiovascular: S1S2 reg, no murmur, positive posterior tibial pulse bilateral, Lungs: decreased breath sounds bilateral, no rhonchi, no rales , no accessory muscle use Abdominal: decreased bs bilateral, soft, nontender to palpation diffusely, no g uarding, no appreciable organomegaly Ext: no gross muscle atrophy, no edema, no contractures Neuro: CN II-XI grossly intact, no focal neuro deficits Psych: Alert, oriented, appropriate affect - Labs CBC & Chem 7: 03/15/19 07:58 03/15/19 07:58 Labs: Abnormal Lab Results - Last 24 Hours (Table) 03/15/19 03/15/19 Range/Units 07:58 07:58 RBC 3.26 L (3.80-5.40) m/uL Hgb 10.3 L (11.4-16.0) gm/dL Hct 30.5 L (34.0-46.0) % Chloride 109 H (98-107) mmol/L Microbiology - Last 24 Hours (Table) 03/12/19 16:12 Blood Culture - Preliminary Blood No Growth after 48 hours Assessment and Plan Assessment: Pneumoperitoneum due to diverticulitis with perforation -stopped -IV antibiotics -Pain control -clear liquid today, likely full liquids -Repeat CT scan today. -Antiemetics -Surgery recommendations Anemia - suspect dilutional as was normal on admission - follow CBC in AM Multiple sclerosis - Home baclofen - Hold home Motrin Acid reflux -PPI to oral Clinical dehydration, resolved Hyperchloremic metabolic acidosis, resolved DVT prophylaxis: SCDs Discussed with: patient Anticipated discharge: per surgery Anticipated discharge place: home A total of 35 minutes was spent on the care of this complex patient more than 50% of the time was spent in counseling and care coordination.
--- NOTE | 2019-03-15 12:26 | CT ---
EXAMINATION TYPE: CT abdomen pelvis w con DATE OF EXAM: 03/15/2019 COMPARISON: 03/12/2019 INDICATION: Perforated diverticulitis, follow up DLP: 1172.4 mGycm, Automated exposure control for dose reduction was used. CONTRAST: 100 ml mL of Isovue 300. Study performed without Oral Contrast TECHNIQUE: Axial images were obtained from above the diaphragm to the pubic rami in the axial plane a t 5 mm thick sections. Reconstructed images are reviewed on the computer in the coronal plane. FINDINGS: Limited CT sections are obtained the lung bases. There is a minimal right pleural effusion. CT ABDOMEN: There continues to be a large pneumoperitoneum. Liver: Normal Spleen: Normal Pancreas: Normal Adrenal glands: The adrenal glands are normal. Gallbladder: Normal Kidneys: No masses are evident. No hydronephrosis is present. No cysts are present. Delayed images were obtained through the kidneys, which remain unremarkable. Aorta: Vascular calcification is within the aorta. Inferior vena cava: Normal. CT PELVIS: There is a fluid collection just superior to the urinary bladder which potentially communi cates with a diverticulum from the sigmoid colon. No contrast is within the structure. Small amount o f air is present. This appears to cross the midline with an additional collection adjacent to a small bowel loop estimated to measure 5.3 x 1.6 cm. Series 201 image 71. These appear to be well visualize d in the coronal plane. Loops of bowel within the abdomen and pelvis are normal. No extravasation of contrast is evident. Some mild wall thickening through the sigmoid colon is not excluded. Multiple diverticuli are within the sigmoid colon. Appendix: Normal and contrast filled as visualized. Urinary bladder: Normal. Genitourinary structures: Uterus appears normal. Adnexal regions appear clear. Osseous structures: No suspicious lytic or sclerotic lesions. IMPRESSIONS: 1. Interval development of what may be small abscesses within the pelvis above the diaphragm adjacen t to the uterus discussed above. 2. Persistent pneumoperitoneum 3. Mild wall thickening within the mid sigmoid colon and to a lesser degree along the small bowel loo p within the right lower quadrant.
--- NOTE | 2019-03-15 14:25 | P.PN ---
Subjective Progress Note Date: 03/15/19 CHIEF COMPLAINT: Abdominal pain HISTORY OF PRESENT ILLNESS: Patient examined at the bedside. She reports minimal abdominal pain. She denies nausea or vomiting. Tolerating clear liquid diet. Passing flatus. Reports BM. WBC within normal limits. Vital signs stable. She is afebrile. PHYSICAL EXAM: VITAL SIGNS: Reviewed. GENERAL: Well-developed in no acute distress. HEENT: No sclera icterus. Extraocular movements grossly intact. Moist buccal mucosa. Head is atraumatic, normocephalic. ABDOMEN: Soft. Nondistended. Nontender with palpation. No peritoneal signs. NEUROLOGIC: Alert and oriented. Cranial nerves II through XII grossly intact. ASSESSMENT: 1. Pneumoperitoneum, suspect secondary to diverticulitis with perforation, cannot rule out peptic ulcer disease as computed tomography scan revealed thickening of the gastric antrum. PLAN: Full liquid diet Continue antibiotics No surgical intervention recommended at this time Outpatient EGD recommended due to thickening of gastric antrum on CT scan Will require outpatient colonoscopy in 4-[address] reviewed with Dr. Black. Will consult Dr. Lopez for DC antibiotics. Likely DC home tomorrow Nurse practitioner note has been reviewed by physician. Signing provider agrees with the documented findings, assessment, and plan of care. Objective - Vital Signs Vital signs: Vital Signs Temp 98.6 F 03/15/19 07:00 Pulse 89 03/15/19 07:00 Resp 18 03/15/19 07:00 BP 144/78 03/15/19 07:00 Pulse Ox 96 03/15/19 07:00 Intake & Output 03/14/19 03/15/19 03/15/19 18:59 06:59 18:59 Intake Total 200 Balance 200 Intake: Oral 200 Other: Voiding Method Toilet # Voids 2 1 - Labs CBC & Chem 7: 03/15/19 07:58 03/15/19 07:58 Labs: Abnormal Lab Results - Last 24 Hours (Table) 03/15/19 03/15/19 Range/Units 07:58 07:58 RBC 3.26 L (3.80-5.40) m/uL Hgb 10.3 L (11.4-16.0) gm/dL Hct 30.5 L (34.0-46.0) % Chloride 109 H (98-107) mmol/L Microbiology - Last 24 Hours (Table) 03/12/19 16:12 Blood Culture - Preliminary Blood No Growth after 48 hours
[2019-03-15] MEDS: MONTELUKAST 10 MG TAB PO SCH (19:25)
[2019-03-15] MEDS: KETOROLAC 30 MG/ML 1 ML VIAL IVP PRN (19:26)
--- NOTE | 2019-03-15 23:48 | P.CONS ---
History of Present Illness - Reason for Consult Consult date: 03/15/19 abdominal abscess Requesting physician: Noble Black - Chief Complaint abdominal pain x few days - History of Present Illness Patient is a 63-year-old female presenting to the ER at [facility] on 03/14/2019 with chief complaints of abdominal pain which has been mostly on her right side patient describes the pain to be mostly excruciating on presentation almost 10 out of 10 and no significant radiation patient has been complaining of some chills and fever with the symptom the patient was evaluated by the ER physician on arrival to the ER the patient was afebrile her white count was normal CT of abdominal pelvis was suggestive of pneumoperitoneum with some inflammatory changes in the gastric antrum and the sigmoid colon with concern for possible perforated sigmoid diverticulitis the patient has been admitted to hospital and has been treated with IV Zosyn patient abdominal pain subsequently has improved no nausea no vomiting no diarrhea repeat CAT scan today did shows development of a abscess 5.6 cm that prompted this infectious disease consultation and recommendation for possible discharge antibiotic. 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, fatty tumor from below right breast breast Past Anesthesia/Blood Transfusion Reactions: No Reported Reaction Past Psychological History: No Psychological Hx Reported Smoking Status: Former smoker Past Alcohol Use History: Rare Past Drug Use History: None Reported - Past Family History Mother Family Medical History: Asthma Additional Family Medical History / Comment(s): diverticulitis Father Family Medical History: Coronary Artery Disease (CAD), Hypertension Medications and Allergies Home Medications Medication Instructions Recorded Confirmed Type Baclofen 10 mg PO HS 03/12/19 03/12/19 History Famotidine [Pepcid] 20 mg PO BID PRN 03/12/19 03/12/19 History Ibuprofen [Motrin] 800 mg PO BID PRN 03/12/19 03/12/19 History Montelukast [Singulair] 10 mg PO HS 03/12/19 03/12/19 History Allergies Allergy/AdvReac Type Severity Reaction Status Date / Time Sulfa (Sulfonamide Allergy Swelling Verified 03/12/19 18:30 Antibiotics) Physical Exam Vitals: Vital Signs Temp Pulse Resp BP Pulse Ox 03/15/19 15:00 97.8 F 79 18 137/83 99 03/15/19 07:00 98.6 F 89 18 144/78 96 03/15/19 02:29 99 F 72 16 112/58 96 03/14/19 19:59 98.5 F 68 16 101/58 98 Intake and Output 03/15/19 03/15/19 03/15/19 06:59 14:59 22:59 Intake Total 400 Balance 400 Intake: Oral 400 Other: Voiding Method Toilet # Voids 1 2 GENERAL DESCRIPTION: Middle-aged female lying in bed, no distress. No tachypnea or accessory muscle of respiration use. HEENT: Shows Pallor , no scleral icterus. Oral mucous membrane is dry. NECK: Trachea central, no thyromegaly. LUNGS: Unlabored breathing. Clear to auscultation anteriorly. No wheeze or crackle. HEART: S1, S2, regular rate and rhythm. ABDOMEN: Soft, no tenderness , guarding or rigidity EXTREMITIES: No edema of feet. SKIN: No rash, no masses palpable. NEUROLOGICAL: The patient is awake, alert, oriented x3, mood and affect normal. Results CBC & Chem 7: 03/15/19 07:58 03/15/19 07:58 Labs: Abnormal Lab Results - Last 24 Hours (Table) 03/15/19 03/15/19 Range/Units 07:58 07:58 RBC 3.26 L (3.80-5.40) m/uL Hgb 10.3 L (11.4-16.0) gm/dL Hct 30.5 L (34.0-46.0) % Chloride 109 H (98-107) mmol/L Microbiology - Last 24 Hours (Table) 03/12/19 16:12 Blood Culture - Preliminary Blood No Growth after 48 hours Assessment and Plan Assessment: 1-patient with abdominal abscess more likely secondary to perforated sigmoid diverticulitis and will need to cover for enteric gram-negative both aerobes and anaerobes the patient seemed to have shown clinical improvement however concern is for possible failure of antibiotic therapy without drainage of this abscess. (1) Intra-abdominal abscess Current Visit: Yes Status: Acute Code(s): K65.1 - PERITONEAL ABSCESS SNOMED Code(s): 16589491 Plan: 1-We will request interventional radiology drainage of this abscess with the fluid should be sent for both aerobic and anaerobic culture 2-continue with Zosyn 3.375 g every 8 hourly for now 3-Gentle IV fluid We will follow on clinical condition and cultures to further adjust medication if needed Thank you for this consultation we will follow the patient along with you Time with Patient: Greater than 30
[2019-03-16] MEDS: KETOROLAC 30 MG/ML 1 ML VIAL IVP PRN ×2 (05:55→13:35)
[2019-03-16] MEDS: SODIUM CHLORIDE 0.45% 1,000 ML IV SCH ×2 (06:02→11:42)
[2019-03-16] MEDS: BACLOFEN 10 MG TAB PO SCH (07:12)
[2019-03-16] MEDS: PIPERACILLIN-TAZOBACTAM 3.375 GM in SODIUM CHLORIDE 0.9% 100 ML IVPB SCH (07:14)
[2019-03-16] MEDS ORDERED: PANTOPRAZOLE 40 MG TABLET PO SCH (07:30)
[2019-03-16] MEDS: ACETAMINOPHEN TAB 325 MG TAB PO PRN (09:24)
--- NOTE | 2019-03-16 10:49 | P.PN ---
Subjective Progress Note Date: 03/16/19 Principal diagnosis: abdominal pain Patient is a 63-year-old female patient of Dr. Dorsey with a past medical history of multiple sclerosis, degenerative disc disease, and chronic low back pain who presented to the hospital with complaints of abdominal pain. In the ER she underwent an extensive evaluation. She was found to be tachycardic on arrival with a pulse of 133. She was mildly hypertensive with a blood pressure 158/93. Initial laboratory analysis was essentially unremarkable. She underwent CT abd and pelvis which showed pneumoperitoneum, surgery was consulted and she had a repeat CT abdomen and pelvis with oral contrast which showed again pneumoperitoneum but no extravasation of contrast but thickening of the sigmoid colon and gastic antrum associated with possible diverticulitis. She was given a dose of Zosyn, IV fluids, and pain medications. She was admitted for perforated diverticulitis. She was maintained on IV fluids and IV antibiotics. She progressed well over 24 hours in the hospital stay. She was tolerated on a clear liquid diet on 03/14 and tolerated this well. She was started on full liquid on 03/15. Repeat CT abdomen and pelvis showed pelvic abscess. IR consulted. Patient seen and examined at bedside. Doing well, Pain controlled, tolerating diet, having more loose bowel movements today. NO chest pain or shortness of breath. Hope for IR drainage aware that if unable to preform may need IV abx. Objective - Vital Signs Vital signs: Vital Signs Temp 97.9 F 03/16/19 07:00 Pulse 87 03/15/19 19:23 Resp 17 03/16/19 07:00 BP 127/74 03/16/19 07:00 Pulse Ox 96 03/16/19 07:00 Intake & Output 03/15/19 03/16/19 03/16/19 18:59 06:59 18:59 Intake Total 400 Balance 400 Intake: Oral 400 Other: Voiding Method Toilet Toilet Toilet # Voids 2 2 - Exam General: non toxic, no distress, appears at stated age Derm: warm, dry Head: atraumatic, normocephalic, symmetric Eyes: EOMI, no lid lag, anicteric sclera Mouth: no lip lesion, mucus membranes moist Cardiovascular: S1S2 reg, no murmur, positive posterior tibial pulse bilateral, Lungs: decreased breath sounds bilateral, no rhonchi, no rales , no accessory muscle use Abdominal: decreased bs bilateral, soft, nontender to palpation diffusely, no guarding, no appreciable organomegaly Ext: no gross muscle atrophy, no edema, no contractures Neuro: CN II-XI grossly intact, no focal neuro deficits Psych: Alert, oriented, appropriate affect - Labs CBC & Chem 7: 03/15/19 07:58 03/15/19 07:58 Labs: Microbiology - Last 24 Hours (Table) 03/12/19 16:12 Blood Culture - Preliminary Blood No Growth after 72 hours Assessment and Plan Assessment: Pneumoperitoneum due to diverticulitis with perforation and abscess -ID recs appreciated , possible IR drainage 01/14. -IV antibiotics -Pain control -full liquid diet -Antiemetics -Surgery recommendations Anemia - suspect dilutional as was normal on admission - follow CBC in AM Multiple sclerosis - Home baclofen - Hold home Motrin Acid reflux -PPI will need on discharge - some gatric antrum thickening on CT will EGD as well as colon in several weeks. Clinical dehydration, resolved Hyperchloremic metabolic acidosis, resolved DVT prophylaxis: SCDs Discussed with: patient Anticipated discharge: per surgery Anticipated discharge place: home A total of 35 minutes was spent on the care of this complex patient more than 50% of the time was spent in counseling and care coordination.
[2019-03-16 15:25] VITALS: BMI 29.2
[2019-03-16 15:55] VITALS: BP 149/87; PULSE 74; RESP 18; TEMP 97.8
--- NOTE | 2019-03-16 20:38 | PN ---
PROGRESS NOTE DATE OF SERVICE: 03/16/2019. REASON FOR FOLLOWUP VISIT: Acute diverticulitis with abdominal abscess. INTERVAL HISTORY: The patient is currently afebrile. She was seen on rounds earlier this afternoon. Overall feeling better. Right lower quadrant abdominal pain has improved. Denies any nausea, no vomiting. No chest pain, shortness of breath or cough. Did have slight diarrhea. No blood or mucus in the stool. PHYSICAL EXAMINATION: Blood pressure 149/87 with a pulse of 74. Temperature is 97.8. She is 97% on room air. General description is a middle-aged female lying in bed in no distress. Respiratory system: Unlabored breathing. Clear to auscultation anteriorly. Heart S1, S2. Regular rate and rhythm. Abdomen soft. No tenderness. LABS: Hemoglobin is 10.2, white count 6.8 with a BUN of 10, creatinine 0.73. Blood culture has been negative. DIAGNOSTIC IMPRESSION AND PLAN: Patient with abdominal abscess. Source is likely diverticulitis, was too small and unable to get a CT-guided drainage so CT images were reviewed with interventional radiologist. The patient has shown overall clinical improvement and insisting on going home. Antibiotic on discharge will be Cipro and Flagyl with close outpatient followup. Discussed in detail with the surgeon on the phone, who was planning to see the patient on Tuesday for close outpatient followup. MMODL / IJN: [id number] /
== END 2019-03-16 17:27 | disposition home or self-care (01) | DRG 392 ==
LOC: EC 14:47 → 4SSUR 17:34
PROVIDERS: ADMIT Surgery; ATTEND Surgery
DX: K57.20 Diverticulitis of large intestine with perforation and abscess without bleeding (principal); E87.2 Acidosis; G35 Multiple sclerosis; E78.5 Hyperlipidemia, unspecified; E86.0 Dehydration; K21.9 Gastro-esophageal reflux disease without esophagitis; G89.29 Other chronic pain; M54.5 Low back pain; Z79.899 Other long term (current) drug therapy; Z87.891 Personal history of nicotine dependence; Z88.2 Allergy status to sulfonamides; Z82.49 Family history of ischemic heart disease and other diseases of the circulatory system; Z82.5 Family history of asthma and other chronic lower respiratory diseases; Z83.79 Family history of other diseases of the digestive system
CPT/HCPCS: 36415; 74176; 74177; 80048; 80053; 81001; 82150; 83690; 83735; 84100; 85025; 85027; 85610; 85730; 87040; 96361; 96365; 96375; 99285

== ENCOUNTER 2019-04-19 07:48 | Day surgery (SDC) | payer BC ==
[2019-04-16 11:44] VITALS: BMI 28.3
[~2019-04-19 07:48] MED LIST: LACTATED RINGERS 1,000 ML IV SCH; LIDOCAINE 1% 20 ML VIAL (10MG/ML) FOR IV START INTRADERMA PRN
[2019-04-19 08:22] VITALS: TEMP 97.7
[2019-04-19] MEDS ORDERED: PROPOFOL 10 MG/ML 20 ML VIAL IV ONE (09:06)
[2019-04-19] MEDS ORDERED: LIDOCAINE 1% INJ 10MG/ML (20 ML MDV) ONE (09:06)
--- NOTE | 2019-04-19 09:06 | P.GSHP ---
History of Present Illness H&P Date: 04/19/19 Chief Complaint: History of diverticulitis Status post 3-year-old female who presents today for colonoscopy. Patient has history of perforated diverticulitis. Past Medical History Past Medical History: Hyperlipidemia Additional Past Medical History / Comment(s): Diverticulitis, MS, hx of colon polyps History of Any Multi-Drug Resistant Organisms: None Reported Additional Past Surgical History / Comment(s): ganglion cyst removal, expl. lap. fatty tumor left breast, prev colonoscopy, Nabeel cataract Past Anesthesia/Blood Transfusion Reactions: No Reported Reaction Past Psychological History: No Psychological Hx Reported Smoking Status: Former smoker Past Alcohol Use History: Rare Additional Past Alcohol Use History / Comment(s): smoked a couple years in teens, quit age 20 Past Drug Use History: None Reported - Past Family History Mother Family Medical History: Asthma Additional Family Medical History / Comment(s): diverticulitis Father Family Medical History: Coronary Artery Disease (CAD), Hypertension Medications and Allergies Home Medications Medication Instructions Recorded Confirmed Type Baclofen 10 mg PO HS 03/12/19 04/19/19 History Montelukast [Singulair] 10 mg PO HS 03/12/19 04/19/19 History Acetaminophen Tab [Tylenol] 650 mg PO Q6HR PRN tab 03/16/19 04/19/19 Rx Pantoprazole [Protonix] 40 mg PO [id number] #30 tablet. 03/16/19 04/19/19 Rx Pepcid 1 tab PO DIRECTED PRN 04/16/19 History Allergies Allergy/AdvReac Type Severity Reaction Status Date / Time Sulfa (Sulfonamide Allergy Swelling Verified 04/16/19 11:39 Antibiotics) Surgical - Exam Vital Signs Temp Pulse Resp BP Pulse Ox 97.7 F 98 18 155/73 99 04/19/19 08:21 04/19/19 08:21 04/19/19 08:21 04/19/19 08:21 04/19/19 08:21 - General well developed, well nourished, no distress - Eyes PERRL - ENT normal pinna - Neck no masses - Respiratory normal expansion - Cardiovascular Rhythm: regular - Abdomen Abdomen: soft, non tender Assessment and Plan Assessment: History of perforated diverticula is. We'll perform colonoscopy.
--- NOTE | 2019-04-19 09:15 | P.OP ---
Date of Procedure: 04/19/19 Preoperative Diagnosis: History of perforated diverticulitis Postoperative Diagnosis: Diverticulitis Procedure(s) Performed: Colonoscopy Anesthesia: MAC Surgeon: Noble Black Pathology: none sent Condition: stable Disposition: PACU Description of Procedure: The patient's placed on the endoscopy table in the lateral position. She received IV sedation. Digital rectal exam was performed which revealed no ebonized. The flexible colonoscope was then placed patient anus. The scope was placed level sigmoid colon. The; was quite scarred and tortuous. Several times made to maneuver the sigmoid colon there was some possible. This point the scope was withdrawn. It was felt the risk of colonic perforation was quite high because the colon could not be easily medically. This was withdrawn the rectum and distal sigmoid colon appeared normal. Scope was withdrawn for patient.
[2019-04-19 09:27] VITALS: RESP 16
[2019-04-19 09:46] VITALS: BP 132/66; PULSE 74
== END 2019-04-19 09:57 | disposition home or self-care (01) ==
LOC: ORWHC2ENDO 07:48
PROVIDERS: ATTEND Surgery
DX: K57.32 Diverticulitis of large intestine without perforation or abscess without bleeding (principal); Q43.9 Congenital malformation of intestine, unspecified; E78.5 Hyperlipidemia, unspecified; J44.9 Chronic obstructive pulmonary disease, unspecified; G35 Multiple sclerosis; Z88.2 Allergy status to sulfonamides; Z87.891 Personal history of nicotine dependence; Z86.010 Personal history of colon polyps; Z79.899 Other long term (current) drug therapy; Z98.41 Cataract extraction status, right eye; Z98.42 Cataract extraction status, left eye; Z82.5 Family history of asthma and other chronic lower respiratory diseases; Z82.49 Family history of ischemic heart disease and other diseases of the circulatory system; Z83.79 Family history of other diseases of the digestive system
CPT/HCPCS: 45330; J2001; J2704; 45378

== ENCOUNTER → 2019-04-30 | Outpatient (CLI) | payer BC ==
[2019-04-30 12:46] LABS: HCT 40.2 % (34.0-46.0); HGB 13.1 gm/dL (11.4-16.0); MCH 30.9 pg (25.0-35.0); MCHC 32.6 g/dL (31.0-37.0); MCV 94.8 fL (80.0-100.0); Mean Platelet Volume 8.6; Platelet Count 272 k/uL (150-450); RBC 4.24 m/uL (3.80-5.40); RDW 12.6 % (11.5-15.5); WBC 6.6 k/uL (3.8-10.6)
[2019-04-30 12:56] LABS: Potassium 4.5 mmol/L (3.5-5.1)
== END | disposition home or self-care (01) ==
LOC: LABPAT 11:35
PROVIDERS: ATTEND Surgery
DX: Z01.818 Encounter for other preprocedural examination (principal); Z01.812 Encounter for preprocedural laboratory examination; K57.32 Diverticulitis of large intestine without perforation or abscess without bleeding
CPT/HCPCS: 36415; 80051; 85027; 86850; 86900; 86901; 93005

== ENCOUNTER 2019-05-10 05:54 | Inpatient (IN) | payer BC ==
[2019-05-03 11:42] VITALS: BMI 28.1
[~2019-05-10 05:54] MED LIST changes: +HEPARIN SODIUM,PORCINE 5,000 UNIT/ML 1 ML VIAL SQ ONE; -LACTATED RINGERS 1,000 ML IV SCH; -LIDOCAINE 1% 20 ML VIAL (10MG/ML) FOR IV START INTRADERMA PRN; +metroNIDAZOLE-NS PMX 500 MG in SALINE 1 100ML.BAG IVPB ONE
[2019-05-10] MEDS ORDERED: DEXAMETHASONE SOD PHOSPHATE 10 MG/ML 1 ML VIAL IV ONE (05:58)
[2019-05-10] MEDS ORDERED: LIDOCAINE 1% (10MG/ML) FOR IV START INTRADERMA PRN (05:58)
[2019-05-10] MEDS ORDERED: ONDANSETRON 4 MG/2 ML VIAL IVP ONE (05:58)
[2019-05-10] MEDS ORDERED: HYDROmorphone 0.5 MG/0.5 ML SYRINGE IVP PRN (05:58)
[2019-05-10] MEDS: LACTATED RINGERS 1,000 ML IV SCH (06:50)
[2019-05-10] MEDS ORDERED: fentaNYL (PF) 50 MCG/ML 2 ML AMP IV ONE (07:15)
[2019-05-10] MEDS ORDERED: MIDAZOLAM 2 MG/2 ML VIAL IV ONE (07:15)
[2019-05-10] MEDS ORDERED: PHENYLEPHRINE-0.9% NACL SYG 1 MG/10 ML SYRINGE ONE (07:50)
[2019-05-10] MEDS ORDERED: ePHEDrine SULFATE/0.9% NACL/PF 50 MG/5 ML SYRINGE IV ONE (07:50)
[2019-05-10] MEDS ORDERED: MIDAZOLAM 2 MG/2 ML VIAL ONE (07:50)
[2019-05-10] MEDS ORDERED: SUCCINYLCHOLINE CHLORIDE 100 MG/5 ML SYR IV ONE (07:50)
[2019-05-10] MEDS ORDERED: GLYCOPYRROLATE 0.2 MG/ML 2 ML VIAL ONE (07:50)
[2019-05-10] MEDS ORDERED: fentaNYL (PF) 50 MCG/ML 2 ML AMP ONE (07:50)
[2019-05-10] MEDS ORDERED: NEOSTIGMINE 1 MG/ML 10 ML VIAL ONE (07:50)
[2019-05-10] MEDS ORDERED: ROCURONIUM BROMIDE 10 MG/ML 5 ML VIAL IV ONE (07:50)
[2019-05-10] MEDS ORDERED: PROPOFOL 10 MG/ML 20 ML VIAL IV ONE (07:50)
[2019-05-10] MEDS ORDERED: LIDOCAINE 1% INJ 10MG/ML (20 ML MDV) ONE (07:50)
--- NOTE | 2019-05-10 07:56 | P.GSHP ---
History of Present Illness H&P Date: 05/10/19 Chief Complaint: History of perforated diverticulitis This a 6-year-old female who presents today for low anterior section. Patient's previous history of perforated diverticulitis. Patient aware the risk of colostomy Past Medical History Past Medical History: GERD/Reflux Additional Past Medical History / Comment(s): MULTIPLE SCLEROSIS , HX HEPTATITIS (1972)., ENVIRONMENTAL ALLERGIES., HX OF PERFORATED DIVERTICULOSIS. History of Any Multi-Drug Resistant Organisms: None Reported Additional Past Surgical History / Comment(s): ganglion cyst , expl. lap., fatty tumor left breast, cataracts, colonoscopy Past Anesthesia/Blood Transfusion Reactions: No Reported Reaction Past Psychological History: No Psychological Hx Reported Smoking Status: Former smoker Past Alcohol Use History: None Reported Additional Past Alcohol Use History / Comment(s): smoked a couple years in teens, quit age 20 Past Drug Use History: None Reported - Past Family History Mother Family Medical History: Asthma Additional Family Medical History / Comment(s): diverticulitis Father Family Medical History: Coronary Artery Disease (CAD), Hypertension Medications and Allergies Home Medications Medication Instructions Recorded Confirmed Type Baclofen 10 mg PO BID 03/12/19 05/10/19 History Montelukast [Singulair] 10 mg PO HS 03/12/19 05/10/19 History Famotidine [Pepcid] 20 mg PO BID PRN 05/03/19 05/10/19 History Fluticasone Nasal [place] [Flonase 1 spray EA NOSTRIL DAILY PRN 05/03/19 05/10/19 History Nasal [place]] Fluticasone/Salmeterol [Advair Hfa 2 puff INHALATION BID PRN 05/03/19 05/10/19 History 115-21 Mcg Inhaler] Acetaminophen Tab [Tylenol Tab] 325 - 650 mg PO Q6H PRN 05/07/19 05/10/19 History Allergies Allergy/AdvReac Type Severity Reaction Status Date / Time Sulfa (Sulfonamide Allergy Swelling Verified 05/10/19 06:22 Antibiotics) Surgical - Exam Vital Signs Temp Pulse Resp BP Pulse Ox 97.8 F 114 H 16 113/75 96 05/10/19 06:16 05/10/19 06:16 05/10/19 06:16 05/10/19 06:16 05/10/19 06:16 - General well developed, well nourished, no distress - Eyes PERRL - ENT normal pinna - Neck no masses - Respiratory normal expansion - Cardiovascular Rhythm: regular - Abdomen Abdomen: soft, non tender Assessment and Plan Assessment: History of perforated diverticula is. We'll perform low anterior section. Patient aware of risk of wound infection, colostomy, anastomotic leak,
[2019-05-10] MEDS ORDERED: NALOXONE 0.4 MG/ML 1 ML VIAL IV PRN (08:20)
[2019-05-10] MEDS ORDERED: LACTATED RINGERS 1,000 ML IV ONE ×2 (09:24→14:09)
[2019-05-10] MEDS: ROPIVACAINE 400 MG, HYDROMORPHONE (PF) 5 MG in SODIUM CHLORIDE 0.9% 170 ML EPIDURAL PRN (09:44)
[2019-05-10] MEDS ORDERED: METOCLOPRAMIDE 5 MG/ML 2 ML VIAL IVP PRN (10:17)
[2019-05-10] MEDS ORDERED: BENZOCAINE/MENTHOL LOZENG 1 EACH LOZENGE MUCOUS MEM PRN (10:17)
--- NOTE | 2019-05-10 10:23 | P.OP ---
Date of Procedure: 05/10/19 Preoperative Diagnosis: Diverticulitis Postoperative Diagnosis: Diverticulitis Procedure(s) Performed: Low anterior resection Anesthesia: GETA Pathology: other (Sigmoid colon) Condition: stable Disposition: PACU Description of Procedure: DESCRIPTION OF PROCEDURE: The patient was placed on the operating table in the supine position. Patient received a general anesthesia. Patient was then placed in the dorsal lithotomy position. The patients abdomen was prepped and draped in the usual sterile fashion. Through a low midline incision, the abdomen was entered. The Vijay wound protector was used. The Bookwalter retractor was placed in the wound. The stomach appeared normal. The small bowel appeared normal. The liver appeared normal. The right colon and transverse colon appeared normal. On the left colon, there was an extensive diverticulosis noted. The sigmoid colon was then mobilized by dividing the white line of Toldt with electrocautery. At this point, the proximal sigmoid colon was transected with a GI stapler after a window had been made in the mesentery. The distal si gmoid colon was then dissected. Mesentery was taken down with the Enseal device. The rectum was then transected with the contour stapler. Next, a enterotomy is made in the proximal colon. The anvil for the EEA stapler was placed into the colon. The colon was then transected with the MEGAN stapler. And then the anvil spike was driven through the staple line. Using the Enseal device the mesentery the bowel was divided and the specimen sent to pathology. The EEA stapler device was then placed in the patient'ss anus and passed into the rectum. The nail for the EEA was then brought out through the distal rectum and then attached to the anvil. The EEA stapler device was then fired. The anastomosis was inspected. There were 2 good donuts of tissue removed from the EEA stapler. The anastomosis was then tested under water and there was no air leak seen. At this point the abdomen was then irrigated. There was no bleeding seen. The patient had a pelvic appendix. His HIDA perform an incidental appendectomy. The mesentery of the appendix was divided with the Enseal device. And then using the GI stapler Was performed. The omentum was visualized. There appeared to be nonviable portion of omentum. This was decided with the Enseal device. This was sent to pathology. The fascia was closed clean instruments. The fascia was then closed with double stranded #1 PDS. The skin was closed with kelvin. The patient tolerated the procedure well.
[2019-05-10] MEDS: D5-0.45% NACL WITH KCL 20MEQ/L 1,000 ML IV SCH ×2 (17:57→21:02)
[2019-05-10 18:00] LABS: Basophils % (A) 0 %; Eosinophils % (A) 0 %; HCT 34.6 % (34.0-46.0); HGB 10.8 gm/dL (11.4-16.0); Lymphocytes # (A) 0.7 k/uL (1.0-4.8); Lymphocytes % (A) 6 %; MCH 30.1 pg (25.0-35.0); MCHC 31.1 g/dL (31.0-37.0); MCV 96.9 fL (80.0-100.0); Mean Platelet Volume 8.4; Monocytes # (A) 0.4 k/uL (0-1.0); Monocytes % (A) 4 %; Neutrophils # (A) 9.7 k/uL (1.3-7.7); Neutrophils % (A) 88 %; Platelet Count 245 k/uL (150-450); RBC 3.57 m/uL (3.80-5.40); RDW 12.8 % (11.5-15.5)
[2019-05-10] MEDS: HEPARIN SODIUM,PORCINE 5,000 UNIT/ML 1 ML VIAL SQ SCH (18:30)
[2019-05-10] MEDS: FAMOTIDINE 20 MG/2 ML VIAL IV SCH (20:53)
[2019-05-11] MEDS: HEPARIN SODIUM,PORCINE 5,000 UNIT/ML 1 ML VIAL SQ SCH ×4 (01:15→23:58)
--- NOTE | 2019-05-11 02:00 | P.CONS ---
History of Present Illness - Reason for Consult Consult date: 05/11/19 - History of Present Illness Patient is a 63-year-old female with a PMH of multiple sclerosis and chronic lower back pain due to degenerative disc disease was admitted to the hospital for scheduled low anterior bowel resection. The patient had previously been admitted to the hospital on 03/13/2019 with abdominal pain when she was noted to have pneumoperitoneum likely secondary to a ruptured diverticulum. Patient was given IV antibiotics and was eventually discharged home on oral antibiotics with a follow-up with Dr. Ham on 03/20. Patient was thereafter scheduled for her procedure which she underwent uneventfully earlier today. She was seen postoperatively on the surgical unit. She reported excellent control of her pain, currently at a 0 out of 10. She denied any additional complaints. She denied nausea, vomiting, fever, chills, chest pain, shortness of breath. She reports belching but denied any flatus. Review of Systems Pertinent positives and negatives as discussed in HPI, a complete review of systems was performed and all other systems are negative. Past Medical History Past Medical History: GERD/Reflux Additional Past Medical History / Comment(s): MULTIPLE SCLEROSIS , HX HEPTATITIS (1972)., ENVIRONMENTAL ALLERGIES., HX OF PERFORATED DIVERTICULOSIS. History of Any Multi-Drug Resistant Organisms: None Reported Additional Past Surgical History / Comment(s): ganglion cyst , expl. lap., fatty tumor left breast, cataracts, colonoscopy Past Anesthesia/Blood Transfusion Reactions: No Reported Reaction Past Psychological History: No Psychological Hx Reported Smoking Status: Former smoker Past Alcohol Use History: None Reported Additional Past Alcohol Use History / Comment(s): smoked a couple years in teens, quit age 20 Past Drug Use History: None Reported - Past Family History Mother Family Medical History: Asthma Additional Family Medical History / Comment(s): diverticulitis Father Family Medical History: Coronary Artery Disease (CAD), Hypertension Medications and Allergies Home Medications Medication Instructions Recorded Confirmed Type Baclofen 10 mg PO BID 03/12/19 05/10/19 History Montelukast [Singulair] 10 mg PO HS 03/12/19 05/10/19 History Famotidine [Pepcid] 20 mg PO BID PRN 05/03/19 05/10/19 History Fluticasone Nasal [place] [Flonase 1 spray EA NOSTRIL DAILY PRN 05/03/19 05/10/19 History Nasal [place]] Fluticasone/Salmeterol [Advair Hfa 2 puff INHALATION BID PRN 05/03/19 05/10/19 History 115-21 Mcg Inhaler] Acetaminophen Tab [Tylenol Tab] 325 - 650 mg PO Q6H PRN 05/07/19 05/10/19 History Allergies Allergy/AdvReac Type Severity Reaction Status Date / Time Sulfa (Sulfonamide Allergy Swelling Verified 05/10/19 06:22 Antibiotics) Physical Exam Vitals: Vital Signs Temp Pulse Pulse Resp BP BP Pulse Ox 05/11/19 00:00 90 20 05/10/19 20:00 20 05/10/19 18:43 98.3 F 90 18 102/57 93 L 05/10/19 17:48 16 05/10/19 17:10 97.4 F L 92 16 109/55 96 05/10/19 16:23 85 16 101/57 92 L 05/10/19 16:03 90 18 105/63 96 05/10/19 15:30 95 16 118/74 99 05/10/19 15:10 88 16 112/60 97 05/10/19 14:40 100 18 90/44 97 05/10/19 14:00 110 H 18 107/60 98 05/10/19 13:14 81 16 93/43 92 L 05/10/19 12:39 79 18 93/48 94 L 05/10/19 12:15 82 16 90/51 94 L 05/10/19 11:43 85 18 92/48 98 05/10/19 11:15 81 16 92/48 98 05/10/19 11:01 71 16 85/44 96 05/10/19 10:31 73 16 93/42 97 05/10/19 10:16 76 16 92/45 98 05/10/19 10:01 69 16 100/48 100 05/10/19 09:45 75 16 109/52 100 05/10/19 09:34 96.8 F L 77 16 97/48 100 05/10/19 07:36 103 H 16 108/64 99 05/10/19 06:16 97.8 F 114 H 16 113/75 96 Intake and Output 05/10/19 05/10/19 05/11/19 14:59 22:59 06:59 Intake Total 2350 Output Total 210 150 Balance 2140 -150 Intake: IV 2349 Output: Urine 60 150 Estimated Blood Loss 150 Other: Voiding Method Indwelling Catheter Indwelling Catheter Weight 74 kg General: non toxic, no distress, appears at stated age, overweight Derm: no unusual rashes/lesions no unusual ecchymoses, warm, dry Head: atraumatic, normocephalic, symmetric Eyes: EOMI, no lid lag, anicteric sclera, pupils equal round reactive to light ENT: Nose and ears atraumatic, no thrush, no pharyngeal erythema Neck: No thyromegaly, no cervical lymphadenopathy, trachea midline, supple Mouth: no lip lesion, mucus membranes moist Cardiovascular: S1S2 reg, no murmur, positive posterior tibial pulse bilateral, no edema, capillary refill less than 2 seconds Lungs: CTA bilateral, no rhonchi, no rales , no accessory muscle use Abdominal: Postsurgical, with a lower midline incision with overlying dressing and some dried blood, soft, nontender to palpation, no guarding Ext: no gross muscle atrophy, muscle strength 5 out of 5 in all 4 extremities grossly, no contractures, Neuro: CN II-XI grossly intact, light touch intact all 4 extremities, finger to nose within normal limits, Psych: Alert, oriented, appropriate affect Results CBC & Chem 7: 05/10/19 17:40 Labs: Abnormal Lab Results - Last 24 Hours (Table) 05/10/19 Range/Units 17:40 WBC 11.0 H (3.8-10.6) k/uL RBC 3.57 L (3.80-5.40) m/uL Hgb 10.8 L (11.4-16.0) gm/dL Neutrophils # 9.7 H (1.3-7.7) k/uL Lymphocytes # 0.7 L (1.0-4.8) k/uL Assessment and Plan Plan: History of perforated diverticulitis status post low anterior bowel resection -Management including pain control as per surgery -Anti-emetics Multiple sclerosis -C/w home meds DVT prophylaxis -As per surgical service -Currently on heparin
[2019-05-11] MEDS ORDERED: SYMBICORT 160-4.5 MCG INHALER INHALATION PRN (02:01)
[2019-05-11] MEDS: D5-0.45% NACL WITH KCL 20MEQ/L 1,000 ML IV SCH ×3 (04:43→20:26)
[2019-05-11] MEDS: LACTATED RINGERS 1,000 ML IV SCH (07:16)
--- NOTE | 2019-05-11 08:01 | P.PN ---
Progress Note - Text 05/11 722am 63-year-old female status post exploratory lap. Patient has an epidural catheter for postop pain control with the solution running at 6 mL an hour with a VAS of 2. No motor or sensory deficit noted noted. Plan to continue epidural infusion
[2019-05-11] MEDS: BACLOFEN 10 MG TAB PO SCH ×2 (08:49→20:19)
[2019-05-11] MEDS: ALVIMOPAN 12 MG CAPSULE PO SCH ×2 (08:50→20:19)
[2019-05-11] MEDS: FAMOTIDINE 20 MG/2 ML VIAL IV SCH ×2 (08:51→20:19)
[2019-05-11] MEDS ORDERED: HYDROcodone/APAP 5-325MG 1 EACH TAB PO PRN (10:52)
--- NOTE | 2019-05-11 15:45 | P.PN ---
Progress Note - Text Progress Note Date: 05/11/19 The patient is postoperative day 1 from low anterior resection for history of perforated diverticulitis. She is doing quite well. She has minimal pain. On exam her vital signs are stable. Her abdomen soft. Incision sites clean and intact. Patient will continue clear liquids and epidural catheter. We will advance her diet once her bowel function has improved.
[2019-05-11] MEDS: MONTELUKAST 10 MG TAB PO SCH (20:18)
[2019-05-12] MEDS: D5-0.45% NACL WITH KCL 20MEQ/L 1,000 ML IV SCH ×3 (03:53→21:02)
[2019-05-12 07:03] LABS: Basophils % (A) 0 %; Eosinophils # (A) 0.3 k/uL (0-0.7); Eosinophils % (A) 3 %; HCT 29.8 % (34.0-46.0); HGB 9.6 gm/dL (11.4-16.0); Lymphocytes # (A) 1.8 k/uL (1.0-4.8); Lymphocytes % (A) 24 %; MCH 30.9 pg (25.0-35.0); MCHC 32.2 g/dL (31.0-37.0); MCV 95.8 fL (80.0-100.0); Mean Platelet Volume 8.6; Monocytes # (A) 0.5 k/uL (0-1.0); Monocytes % (A) 7 %; Neutrophils # (A) 4.8 k/uL (1.3-7.7); Neutrophils % (A) 64 %; Platelet Count 182 k/uL (150-450); RBC 3.11 m/uL (3.80-5.40); RDW 12.7 % (11.5-15.5); WBC 7.5 k/uL (3.8-10.6)
[2019-05-12 07:21] LABS: African American GFR (CKD) >90 (>60 ml/min/1.73 sqM); Anion Gap 4 mmol/L; Blood Urea Nitrogen 5 mg/dL (7-17); Calcium 8.2 mg/dL (8.4-10.2); Carbon Dioxide 26 mmol/L (22-30); Chloride 104 mmol/L (98-107); Glucose 109 mg/dL (74-99); Non-African American GFR(CKD) >90 (>60 ml/min/1.73 sqM); Potassium 4.3 mmol/L (3.5-5.1); Sodium 134 mmol/L (137-145)
[2019-05-12] MEDS: ALVIMOPAN 12 MG CAPSULE PO SCH (08:19)
[2019-05-12] MEDS: BACLOFEN 10 MG TAB PO SCH ×2 (08:19→20:56)
[2019-05-12] MEDS: FAMOTIDINE 20 MG/2 ML VIAL IV SCH ×2 (08:19→20:56)
[2019-05-12] MEDS: LACTATED RINGERS 1,000 ML IV SCH (08:19)
[2019-05-12] MEDS: HEPARIN SODIUM,PORCINE 5,000 UNIT/ML 1 ML VIAL SQ SCH ×3 (08:19→23:39)
[2019-05-12] MEDS ORDERED: guaiFENesin 600 MG TABLET.ER PO PRN (08:23)
--- NOTE | 2019-05-12 08:35 | P.PN ---
Subjective Progress Note Date: 05/12/19 Principal diagnosis: Medical management post low anterior resection Patient was seen and examined. No acute events overnight. Low-grade fever 100 Fahrenheit overnight. Still has Hall catheter. Patient denies passing gas. No bowel movement yet. Tolerating clear liquids with minimal nausea this morning. Patient reports well-controlled 4 out of 10 pain at the site of inci erlinda in her abdomen. She denies any chest pain, shortness of breath or palpitations. No nausea or vomiting. No fever or chills. Objective - Vital Signs Vital signs: Vital Signs Temp 98.4 F 05/12/19 07:00 Pulse 86 05/12/19 07:00 Resp 17 05/12/19 07:00 BP 119/71 05/12/19 07:00 Pulse Ox 95 05/12/19 07:00 Intake & Output 05/11/19 05/12/19 05/12/19 18:59 06:59 18:59 Intake Total 545 425 Output Total 725 1650 Balance -180 -1225 Intake: Intake, IV Titration 425 Amount D5-0.45% NaCl with KCl 425 20Meq/l 1,000 ml @ 125 mls/hr IV .Q8H [facility] Rx#: [id number] Oral 545 Output: Urine 725 1650 Other: Voiding Method Indwelling Catheter # Voids 3 - Exam General: [non toxic], [no distress], [appears at stated age] Derm: [warm], [dry] Head: [atraumatic], [normocephalic], [symmetric] Eyes: [EOMI], [no lid lag], [anicteric sclera] Mouth: [no lip lesion], [mucus membranes moist] Cardiovascular: [S1S2 reg], [no murmur], [positive DP pulse bilateral] Lungs: [CTA bilateral], [no rhonchi, no rales] , [no accessory muscle use] Abdominal: [soft], [ nontender to palpation], [no guarding], [no appreciable organomegaly], [decreased bowel sounds in all 4 quadrants], [midline surgical scar dressed clean dry and intact] Ext: [no gross muscle atrophy], [no edema], [no contractures] Neuro: [no focal neuro deficits] Psych: [Alert], [oriented], [appropriate affect] - Labs CBC & Chem 7: 05/12/19 06:35 05/12/19 06:35 Labs: Abnormal Lab Results - Last 24 Hours (Table) 05/12/19 05/12/19 Range/Units 06:35 06:35 RBC 3.11 L (3.80-5.40) m/uL Hgb 9.6 L (11.4-16.0) gm/dL Hct 29.8 L (34.0-46.0) % Sodium 134 L (137-145) mmol/L BUN 5 L (7-17) mg/dL Glucose 109 H (74-99) mg/dL Calcium 8.2 L (8.4-10.2) mg/dL Assessment and Plan Assessment: Acute blood loss from surgery Low-grade fever with leukocytosis History of perforated diverticulitis post low anterior resection POD 2 Multiple sclerosis Hemoglobin 9.6. Likely drop from expected blood loss from surgery. Plans: Repeat CBC tomorrow morning. Transfuse if hemoglobin less than 7. Low-grade fever of 100 Fahrenheit. Leukocytosis of 11 yesterday that's resolved today. No real signs of infection. Patient reports 1 week history of viral URI symptoms along with sinus congestion. Also could be related to pain and stress of surgery. Plans: Continue to monitor for fever. Mucinex for sinus congestion. Continue incentive spirometry. Would discontinue Hall catheter. Plans: Ensure bowel movement. Adequate pain control. Clear liquid diet and advance. Management as per general surgery. Not in acute exacerbation. Plans: Baclofen and [place] as needed for pain. [Patient progressing well since surgery. Still is not passing gas no bowel movement. Encourage hallway ambulation. Advance diet as tolerated. General surgery on board.]
--- NOTE | 2019-05-12 10:12 | P.PN ---
Progress Note - Text Progress Note Date: 05/12/19 (384) Anesthesia Postop day 2 Status post low anterior resection with epidural day 3 Patient seen and examined. Doing well without complaint. VAS less than 4. No nausea vomiting or pruritus. Ropivacaine 0.16% with Dilaudid 20 mcg/mL at 6 mL an hour. Objective: Vital signs reviewed Lungs: Good chest excursion Abdomen: Appears nondistended Other: Epidural Site Intact without induration. Dressing intact Neuro: No apparent motor block. Sensory within normal limits. Assessment: Status post low anterior resection with epidural day 2 Plan: Continue current care with your medical management. Anticipate DC'd tomorrow.
--- NOTE | 2019-05-12 13:52 | P.PN ---
Subjective Progress Note Date: 05/12/19 Principal diagnosis: Diverticulitis Patient doing well today. She did have a bowel movement and is passing flatus. T-max 100. White blood cell count normal. She is tolerating clears. Hungry for more to eat. Objective - Vital Signs Vital signs: Vital Signs Temp 98.4 F 05/12/19 07:00 Pulse 86 05/12/19 07:00 Resp 17 05/12/19 07:00 BP 119/71 05/12/19 07:00 Pulse Ox 95 05/12/19 07:00 Intake & Output 05/11/19 05/12/19 05/12/19 18:59 06:59 18:59 Intake Total 545 425 Output Total 725 1650 1000 Balance -180 -1225 -1000 Intake: Intake, IV Titration 425 Amount D5-0.45% NaCl with KCl 425 20Meq/l 1,000 ml @ 125 mls/hr IV .Q8H [facility] Rx#: [id number] Oral 545 Output: Urine 725 1650 1000 Other: Voiding Method Indwelling Catheter Indwelling Catheter # Voids 3 - Exam Abdomen: Soft, nondistended, nontender, incision clean and dry with dressing intact - Labs CBC & Chem 7: 05/12/19 06:35 05/12/19 06:35 Labs: Abnormal Lab Results - Last 24 Hours (Table) 05/12/19 05/12/19 Range/Units 06:35 06:35 RBC 3.11 L (3.80-5.40) m/uL Hgb 9.6 L (11.4-16.0) gm/dL Hct 29.8 L (34.0-46.0) % Sodium 134 L (137-145) mmol/L BUN 5 L (7-17) mg/dL Glucose 109 H (74-99) mg/dL Calcium 8.2 L (8.4-10.2) mg/dL Assessment and Plan (1) Diverticulitis large intestine Narrative/Plan: Will increase diet to full liquids. Remove epidural and Hall tomorrow. Ambulate. Current Visit: Yes Status: Acute Code(s): K57.32 - DVTRCLI OF LG INT W/O PERFORATION OR ABSCESS W/O BLEEDING SNOMED Code(s): 1833450
[2019-05-12] MEDS: ROPIVACAINE 400 MG, HYDROMORPHONE (PF) 5 MG in SODIUM CHLORIDE 0.9% 170 ML EPIDURAL PRN (18:17)
[2019-05-12] MEDS: ONDANSETRON 4 MG/2 ML VIAL IVP PRN (20:42)
[2019-05-12] MEDS: MONTELUKAST 10 MG TAB PO SCH (20:56)
[2019-05-13] MEDS: D5-0.45% NACL WITH KCL 20MEQ/L 1,000 ML IV SCH ×4 (04:18→23:34)
[2019-05-13] MEDS: LACTATED RINGERS 1,000 ML IV SCH ×2 (04:19→23:56)
[2019-05-13] MEDS: BACLOFEN 10 MG TAB PO SCH ×2 (08:43→21:43)
[2019-05-13] MEDS: HEPARIN SODIUM,PORCINE 5,000 UNIT/ML 1 ML VIAL SQ SCH ×3 (08:45→23:30)
--- NOTE | 2019-05-13 08:46 | P.PN ---
Progress Note - Text Progress Note Date: 05/13/19 (956) Anesthesia Postop day 3 Status post low anterior resection with epidural day 4 Patient seen and examined. Doing well without complaint. VAS less than 4. No nausea vomiting or pruritus. Ropivacaine 0.16% with Dilaudid 20 mcg/mL at 6 mL an hour. Objective: Vital signs reviewed Lungs: Good chest excursion Abdomen: Appears nondistended Other: Epidural Site Intact without induration. Dressing intact Neuro: No apparent motor block. Sensory within normal limits. Assessment: Status post low anterior resection with epidural postop day #4 Plan: Continue current care with your medical management. Anticipate discontinued today. Order written.
[2019-05-13] MEDS ORDERED: HYDROmorphone 1 MG/ML 1 ML SYRINGE IVP PRN (09:39)
--- NOTE | 2019-05-13 09:40 | P.PN ---
Subjective Progress Note Date: 05/13/19 Principal diagnosis: Diverticulitis Patient doing well today. Had a bit of nausea last night but that resolved. She is tolerating her diet. She is asking for more to eat. She is having bowel movements. T-max 11.1. Did not feel feverish. Objective - Vital Signs Vital signs: Vital Signs Temp 98.3 F 05/13/19 07:00 Pulse 80 05/13/19 07:00 Resp 16 05/13/19 07:00 BP 133/78 05/13/19 07:00 Pulse Ox 98 05/13/19 07:00 Intake & Output 05/12/19 05/13/19 05/13/19 18:59 06:59 18:59 Output Total 1400 1999 Balance -1399 -1999 Output: Urine 1400 1999 Other: Voiding Method Indwelling Catheter Indwelling Catheter # Bowel Movements 1 1 - Exam Abdomen: Soft, nondistended, incision clean and dry, dressing changed - Labs CBC & Chem 7: 05/12/19 06:35 05/12/19 06:35 Assessment and Plan (1) Diverticulitis large intestine Narrative/Plan: We'll remove epidural and Hall catheter today. Shower. Replace dressing. Advance diet. Ambulate. Monitor fevers. Recheck labs tomorrow. Current Visit: Yes Status: Acute Code(s): K57.32 - DVTRCLI OF LG INT W/O PERFORATION OR ABSCESS W/O BLEEDING SNOMED Code(s): 3517572
[2019-05-13] MEDS: FAMOTIDINE 20 MG/2 ML VIAL IV SCH ×2 (11:50→21:46)
--- NOTE | 2019-05-13 12:49 | P.PN ---
Subjective Progress Note Date: 05/13/19 Principal diagnosis: Medical management post low anterior resection Patient was seen and examined. No acute events overnight. Epidural discontinued this morning. Patient had a bowel movement this morning, watery. She reports abdominal discomfort at the site of incision since discontinuing epidural one hour ago. She has been tolerating full liquid diet without any nausea or vomiting. Able to urinate without difficulties. She denies any chest pain, shortness of breath or palpitations. Had fever of 101.1 Fahrenheit last night around 2 AM. Objective - Vital Signs Vital signs: Vital Signs Temp 98.3 F 05/13/19 07:00 Pulse 80 05/13/19 07:00 Resp 16 05/13/19 07:00 BP 133/78 05/13/19 07:00 Pulse Ox 98 05/13/19 07:00 Intake & Output 05/12/19 05/13/19 05/13/19 18:59 06:59 18:59 Output Total 1400 2000 700 Balance -1400 -2000 -700 Output: Urine 1400 2000 700 Uretheral (Hall) 700 Other: Voiding Method Indwelling Catheter Indwelling Catheter Indwelling Catheter # Bowel Movements 1 1 - Exam General: [non toxic], [no distress], [appears at stated age] Derm: [warm], [dry] Head: [atraumatic], [normocephalic], [symmetric] Eyes: [EOMI], [no lid lag], [anicteric sclera] Mouth: [no lip lesion], [mucus membranes moist] Cardiovascular: [S1S2 reg], [no murmur], [positive DP pulse bilateral] Lungs: [CTA bilateral], [no rhonchi, no rales] , [no accessory muscle use] Abdominal: [soft], [ nontender to palpation], [no guarding], [no appreciable organomegaly], [decreased bowel sounds in all 4 quadrants], [midline surgical scar dressed clean dry and intact] Ext: [no gross muscle atrophy], [no edema], [no contractures] Neuro: [no focal neuro deficits] Psych: [Alert], [oriented], [appropriate affect] - Labs CBC & Chem 7: 05/12/19 06:35 05/12/19 06:35 Assessment and Plan Assessment: Acute blood loss from surgery Low-grade fever with leukocytosis History of perforated diverticulitis post low anterior resection POD 3 Multiple sclerosis Hemoglobin 9.6. Likely drop from expected blood loss from surgery. Plans: Repeat CBC tomorrow morning. Transfuse if hemoglobin less than 7. Low-grade fever of 101.1 Fahrenheit. Leukocytosis of 11 on May 10 that is resolved. No real signs of infection. Patient reports 1 week history of viral URI symptoms along with sinus congestion. Also could be related to pain and stress of surgery. Plans: Continue to monitor for fever. Mucinex for sinus congestion. Continue incentive spirometry. Will consider blood culture if fevers continued. Plans: Ensure bowel movement. Adequate pain control. Low fat diet and advance. Management as per general surgery. Not in acute exacerbation. Plans: Baclofen and [place] as needed for pain. [Patient progressing well since surgery. Had bowel movement and urinating freely. Advance diet as tolerated. General surgery on board. Likely DC in 1-2 days.]
[2019-05-13] MEDS ORDERED: ACETAMINOPHEN TAB 325 MG TAB PO PRN (16:48)
[2019-05-13] MEDS ORDERED: IBUPROFEN 400 MG TAB PO PRN (16:53)
[2019-05-13] MEDS: ONDANSETRON 4 MG/2 ML VIAL IVP PRN (16:54)
[2019-05-13] MEDS: KETOROLAC 30 MG/ML 1 ML VIAL IVP SCH ×2 (18:17→23:30)
[2019-05-13 21:39] VITALS: RESP 18
[2019-05-13] MEDS: traMADol 50 MG TAB PO PRN (21:44)
[2019-05-13] MEDS: MONTELUKAST 10 MG TAB PO SCH (21:44)
[2019-05-14] MEDS: KETOROLAC 30 MG/ML 1 ML VIAL IVP SCH ×3 (05:34→13:55)
[2019-05-14 08:02] VITALS: BP 127/78; PULSE 86; TEMP 98.2
[2019-05-14 09:07] LABS: Basophils # (A) 0.1 k/uL (0-0.2); Basophils % (A) 1 %; Eosinophils # (A) 0.4 k/uL (0-0.7); Eosinophils % (A) 5 %; HCT 33.6 % (34.0-46.0); HGB 10.6 gm/dL (11.4-16.0); Lymphocytes # (A) 1.8 k/uL (1.0-4.8); Lymphocytes % (A) 21 %; MCH 30.1 pg (25.0-35.0); MCHC 31.6 g/dL (31.0-37.0); MCV 95.3 fL (80.0-100.0); Mean Platelet Volume 9.1; Monocytes # (A) 0.5 k/uL (0-1.0); Monocytes % (A) 6 %; Neutrophils # (A) 5.5 k/uL (1.3-7.7); Neutrophils % (A) 66 %; Platelet Count 289 k/uL (150-450); RBC 3.53 m/uL (3.80-5.40); RDW 12.5 % (11.5-15.5); WBC 8.4 k/uL (3.8-10.6)
[2019-05-14] MEDS: BACLOFEN 10 MG TAB PO SCH (09:14)
[2019-05-14] MEDS: FAMOTIDINE 20 MG/2 ML VIAL IV SCH (09:14)
[2019-05-14] MEDS: HEPARIN SODIUM,PORCINE 5,000 UNIT/ML 1 ML VIAL SQ SCH (09:15)
[2019-05-14] MEDS: traMADol 50 MG TAB PO PRN (09:21)
[2019-05-14 09:38] LABS: African American GFR (CKD) >90 (>60 ml/min/1.73 sqM); Anion Gap 10 mmol/L; Blood Urea Nitrogen 6 mg/dL (7-17); Calcium 8.6 mg/dL (8.4-10.2); Carbon Dioxide 24 mmol/L (22-30); Chloride 104 mmol/L (98-107); Glucose 93 mg/dL (74-99); Non-African American GFR(CKD) >90 (>60 ml/min/1.73 sqM); Potassium 4.3 mmol/L (3.5-5.1); Sodium 138 mmol/L (137-145)
--- NOTE | 2019-05-14 10:06 | P.DS ---
Providers Date of admission: 05/10/19 05:54 Expected date of discharge: 05/14/19 Attending physician: Noble Black Consults: 05/10/19 10:17 Consult Physician Routine Consulting Provider: Katty Thao Consult Reason/Comments: Medical management Do you want consulting provider notified?: Yes Primary care physician: Sena Dorsey Hospital Course: 63-year-old female who underwent anterior resection secondary to history of diverticulitis with Dr. Black on 05/10/2019. The patient is doing well postoperatively without any immediate applications. Pain is controlled on oral medications she is tolerating diet without nausea or vomiting. Vital signs are stable. She is stable for discharge home today. Please see EMR for further hospital course details Discharge diagnosis 1. Diverticulitis, status post low anterior resection Nurse practitioner note has been reviewed by physician. Signing provider agrees with the documented findings, assessment, and plan of care. Patient Condition at Discharge: Stable Plan - Discharge Summary Discharge Rx Participant: No New Discharge Prescriptions: New traMADol HCl [Ultram] 50 mg PO Q6HR PRN 3 Days #12 tab PRN Reason: Pain No Action Montelukast [Singulair] 10 mg PO HS Baclofen 10 mg PO BID Fluticasone/Salmeterol [Advair Hfa 115-21 Mcg Inhaler] 2 puff INHALATION BID PRN PRN Reason: Allergy Symptoms Fluticasone Nasal [place] [Flonase Nasal [place]] 1 spray EA NOSTRIL DAILY PRN PRN Reason: Allergy Symptoms Famotidine [Pepcid] 20 mg PO BID PRN PRN Reason: Heartburn Acetaminophen Tab [Tylenol Tab] 325 - 650 mg PO Q6H PRN PRN Reason: Pain Discharge Medication List Baclofen 10 mg PO BID 03/12/19 [History] Montelukast [Singulair] 10 mg PO HS 03/12/19 [History] Famotidine [Pepcid] 20 mg PO BID PRN 05/03/19 [History] Fluticasone Nasal [place] [Flonase Nasal [place]] 1 spray EA NOSTRIL DAILY PRN 05/03/19 [History] Fluticasone/Salmeterol [Advair Hfa 115-21 Mcg Inhaler] 2 puff INHALATION BID PRN 05/03/19 [History] Acetaminophen Tab [Tylenol Tab] 325 - 650 mg PO Q6H PRN 05/07/19 [History] traMADol HCl [Ultram] 50 mg PO Q6HR PRN 3 Days #12 tab 05/14/19 [Rx] Follow up Appointment(s)/Referral(s): Noble Black MD [STAFF PHYSICIAN] - 1 Week Activity/Diet/Wound Care/Special Instructions: Diet as tolerated No lifting over 10 pounds You may shower. No soaking or tub baths Very light activity until you are reevaluated at your follow up appointment with your surgeon
[2019-05-14] MEDS: D5-0.45% NACL WITH KCL 20MEQ/L 1,000 ML IV SCH (10:46)
--- NOTE | 2019-05-14 11:00 | P.PN ---
Subjective Progress Note Date: 05/14/19 Principal diagnosis: Medical management post low anterior resection Patient was seen and examined. No acute events overnight. Patient reports lower abdominal pain at the site of incision is well-controlled with current medication. She has been afebrile since May 13 at 2 AM. She denies any chest pain, shortness of breath or palpitations. No nausea or vomiting. No fever or chills. Urinating freely. Having bowel movements. Objective - Vital Signs Vital signs: Vital Signs Temp 98.2 F 05/14/19 07:00 Pulse 86 05/14/19 07:00 Resp 18 05/14/19 07:00 BP 127/78 05/14/19 07:00 Pulse Ox 93 L 05/14/19 07:00 Intake & Output 05/13/19 05/14/19 05/14/19 18:59 06:59 18:59 Intake Total 515 Output Total 1000 Balance -485 Intake: Intake, IV Titration 515 Amount D5-0.45% NaCl with KCl 500 20Meq/l 1,000 ml @ 125 mls/hr IV .Q8H [facility] Rx#: [id number] Ropivacaine 400 mg 15 Hydromorphone (Pf) 5 mg In Sodium Chloride 0.9% 170 ml @ Per Protocol EPIDURAL .Q0M PRN Rx#: [id number] Output: Urine 1000 Uretheral (Hall) 700 Other: Voiding Method Indwelling Catheter Indwelling Catheter # Voids 1 # Bowel Movements 1 - Exam General: [non toxic], [no distress], [appears at stated age] Derm: [warm], [dry] Head: [atraumatic], [normocephalic], [symmetric] Eyes: [EOMI], [no lid lag], [anicteric sclera] Mouth: [no lip lesion], [mucus membranes moist] Cardiovascular: [S1S2 reg], [no murmur], [positive DP pulse bilateral] Lungs: [CTA bilateral], [no rhonchi, no rales] , [no accessory muscle use] Abdominal: [soft], [ nontender to palpation], [no guarding], [no appreciable organomegaly], [normal bowel sounds], [midline surgical scar dressed clean dry and intact] Ext: [no gross muscle atrophy], [no edema], [no contractures] Neuro: [no focal neuro deficits] Psych: [Alert], [oriented], [appropriate affect] - Labs CBC & Chem 7: 05/14/19 07:10 05/14/19 07:10 Labs: Abnormal Lab Results - Last 24 Hours (Table) 05/14/19 05/14/19 Range/Units 07:10 07:10 RBC 3.53 L (3.80-5.40) m/uL Hgb 10.6 L (11.4-16.0) gm/dL Hct 33.6 L (34.0-46.0) % BUN 6 L (7-17) mg/dL Assessment and Plan Assessment: Acute blood loss from surgery Low-grade fever with leukocytosis History of perforated diverticulitis post low anterior resection POD 3 Multiple sclerosis Hemoglobin 9.6-10.6. Likely drop from expected blood loss from surgery. Plans: Transfuse if hemoglobin less than 7. Low-grade fever of 101.1 Fahrenheit 05/13/2018 2AM. Leukocytosis of 11 on May 10 that is resolved. No real signs of infection. Patient reports 1 week history of viral URI symptoms along with sinus congestion. Also could be related to pain and stress of surgery. Plans: Continue to monitor for fever. Mucinex for sinus congestion. Continue incentive spirometry. Plans: Ensure bowel movement. Adequate pain control. Low fat diet and advance. Management as per general surgery. Not in acute exacerbation. Plans: Baclofen and [place] as needed for pain. [Patient progressing well since surgery. Had bowel movement and urinating freely. Advance diet as tolerated. General surgery on board. Likely DC today.]
[2019-05-14] MEDS ORDERED: FAMOTIDINE 20 MG TAB PO SCH (21:00)
--- NOTE | 2019-05-18 13:12 | CDI ---
Documentation Clarification Form Date: 05/18/19 From: Mira Young Phone: If you have a question about this query, please contact Kelsi Seay, Weld Engineer at [phone] between 8am and 5pm. Admit Date: 05/10/19 Discharge Date: 05/14/19 Patient Name: Vielka Lopez Visit Number: [id number] ATTENTION: The Clinical Documentation Specialists (CDI) and [facility] Coding Staff appreciate your assistance in clarifying documentation. Please respond to the clarification below the line at the bottom and electronically sign. The CDI & [facility] Coding staff will review the response and follow-up if needed. Please note: Queries are made part of the Legal Health Record. If you have any questions, please contact the author of this message via ITS. Dear Dr. Lacey Haynes, Documentation states: Acute blood loss from surgery documented by Dr Haynes. PNs 05/12, 05/13 & 05/14 Hemoglobin 9.6. Likely drop from expected blood loss from surgery. Plans: repeat CBC, transfuse if hemoglobin less than 7. History/Risk Factors: Diverticulitis of sigmoid, MS, GERD, low back chronic pain Abnormal: Hemoglobin: 10.8/9.6/10.6 - Hematocrit: 34.6/29.8/33.6 Treatment:monitor labs, no transfusion, Clinical significance of diagnostic testing and treatment CANNOT be assumed or coded without physician documentation of significance if any. Please clarify what abnormal laboratory signifies: Acute blood loss anemia Anemia Abnormal Lab Value Unable to determine Other, please specify acute blood loss anemia MTDD
== END 2019-05-14 14:14 | disposition home health service (06) | DRG 330 ==
LOC: 2ORMAIN 05:54 → 4SSUR 09:38
PROVIDERS: ADMIT Surgery; ATTEND Surgery
PROC: 0DBN0ZZ Excision of Sigmoid Colon, Open Approach (ICD-10-PCS; principal; 2019-05-10 07:40)
DX: K57.32 Diverticulitis of large intestine without perforation or abscess without bleeding (principal); D62 Acute posthemorrhagic anemia; G35 Multiple sclerosis; K21.9 Gastro-esophageal reflux disease without esophagitis; R11.0 Nausea; M54.5 Low back pain; G89.29 Other chronic pain; Z79.51 Long term (current) use of inhaled steroids; Z79.899 Other long term (current) drug therapy; Z86.19 Personal history of other infectious and parasitic diseases; Z98.890 Other specified postprocedural states; Z98.42 Cataract extraction status, left eye; Z98.41 Cataract extraction status, right eye; Z87.891 Personal history of nicotine dependence; Z82.5 Family history of asthma and other chronic lower respiratory diseases; Z82.49 Family history of ischemic heart disease and other diseases of the circulatory system
CPT/HCPCS: 80048; 85025; 86850; 86900; 86901; 88307

== ENCOUNTER → 2019-11-08 | Outpatient (CLI) | payer BC ==
--- NOTE | 2019-11-09 13:56 | MM ---
Reason for exam: screening (asymptomatic). Last mammogram was performed 1 year and 7 months ago. History: Patient is postmenopausal. Took hormonal contraceptives for 15 years. Physical Findings: A clinical breast exam by your physician is recommended on an annual basis and results should be correlated with mammographic findings. MG 3D Screening Mammo W/Cad Bilateral CC and MLO view(s) were taken. Prior study comparison: March 30, 2018, bilateral MG screening mammo w CAD. March 22, 2017, bilateral MG 3d screening mammo w/cad. Finding: There is a typically benign 6 mm equal density (isodense), circumscribed oval mass located 6 cm from the nipple in the middle position of the left breast, more prominent. ASSESSMENT: Incomplete: need additional imaging evaluation, BI-RAD 0 RECOMMENDATION: Special view mammogram and ultrasound of the left breast. [facility] will attempt to contact patient to return for supplemental views and ultrasound.
== END | disposition home or self-care (01) ==
LOC: RADMAMWWP 15:49
PROVIDERS: ATTEND Obstetrics & Gynecology
DX: Z12.31 Encounter for screening mammogram for malignant neoplasm of breast (principal)
CPT/HCPCS: 77063; 77067

== ENCOUNTER → 2019-11-14 | Outpatient (CLI) | payer BC ==
--- NOTE | 2019-11-14 16:37 | BD ---
EXAMINATION TYPE: Axial Bone Density DATE OF EXAM: 11/14/2019 COMPARISON: 03.22.2017 CLINICAL HISTORY: 64 YR OLD FEMALE....ICD-10 CODE: N95.1 POST GABY CHANGE, M89.9 DISORDER OF BONE Height: 62.3 Weight: 164 FRAX RISK QUESTIONS: NOTHING TO NOTE HERE RISK FACTORS HISTORY OF: Active: YES Postmenopausal woman: YES, AT AGE 51 Lost more than 2 inches in height since high school: YES Hyperparathyroidism: NO Adrenal Insufficiency: NO MEDICATIONS: Additional Medications: ROLAIDS, AND REFLUX MEDS, VIT D AND CALCIUM WHEN REMEMBERS Additional History: REFLUX EXAM MEASUREMENTS: Bone mineral densitometry was performed using the [email or web address] System. Bone mineral density as measured about the Lumbar spine is: ----- L1-L4(G/cm2): 0.964 T Score Values are as follows: ----- L: -2.8 ----- L2: -2.6 ----- L3: -1.1 ----- L4: -1.0 ----- L1-L4: -1.8 Bone mineral density has: Decreased -1.1% since study of: 03.22.2017 Bone mineral density about the R hip (g/cm2): 0.946 Bone mineral density about the L hip (g/cm2): 0.959 T Score values are as follows: -----R Neck: -1.7 -----L Neck: -1.6 -----R Total: -0.5 -----L Total: -0.4 Bone mineral density has: Decreased -4.0% since study of: 03.22.2017 FRAX%s: THERE IS A 9.4% CHANCE FOR A MAJOR OSTEOPOROTIC FX AND A 1.1% FOR HIP......PROBABILITY FOR FX IN 10 YRS TIME IMPRESSION: Osteopenia (T Score between -2.5 and -1). There is slightly increased risk of fracture and the patient may be considered for treatment. Re-Screen 2-5 years. NOTE: T-SCORE=SD OF THE YOUNG ADULT MEAN.
== END | disposition home or self-care (01) ==
LOC: RADBDWWP 09:02
PROVIDERS: ATTEND Obstetrics & Gynecology
DX: M85.80 Other specified disorders of bone density and structure, unspecified site (principal); N95.1 Menopausal and female climacteric states
CPT/HCPCS: 77080

== ENCOUNTER → 2019-11-20 | Outpatient (CLI) | payer BC ==
--- NOTE | 2019-11-20 09:34 | MM ---
Reason for exam: additional evaluation requested from abnormal screening. Last mammogram was performed less than 1 month ago. History: Patient is postmenopausal. Took hormonal contraceptives for 15 years. Physical Findings: Nurse Summary: 1cm nodule in the left breast at 4 o'clock (nurse ankush). MG 3D Work Up W/Cad LT Spot compression CC and LM view(s) were taken of the left breast. Prior study comparison: November 08, 2019, bilateral MG 3d screening mammo w/cad. March 30, 2018, bilateral MG screening mammo w CAD. There are scattered fibroglandular densities. Benign appearing calcifications in the left breast. These results were verbally communicated with the patient and result sheet given to the patient on 11/20/19. ASSESSMENT: Probably benign, BI-RAD 3 RECOMMENDATION: Follow-up diagnostic mammogram of the left breast in 6 months.
--- NOTE | 2019-11-20 09:35 | USB ---
Reason for exam: additional evaluation requested from abnormal screening. History: Patient is postmenopausal. Took hormonal contraceptives for 15 years. US Breast Limited LT Left limited breast ultrasound including focal area of concern, retroareolar and axilla demonstrates no cystic or solid lesion seen. These results were verbally communicated with the patient and result sheet given to the patient on 11/20/19. ASSESSMENT: Probably benign, BI-RAD 3 RECOMMENDATION: Follow-up diagnostic mammogram of the left breast in 6 months.
[2019-11-20 11:25] LABS: Basophils # (A) 0.1 k/uL (0-0.2); Basophils % (A) 1 %; Eosinophils # (A) 0.3 k/uL (0-0.7); Eosinophils % (A) 3 %; HCT 44.1 % (34.0-46.0); HGB 13.6 gm/dL (11.4-16.0); Lymphocytes # (A) 3.3 k/uL (1.0-4.8); Lymphocytes % (A) 42 %; MCH 29.6 pg (25.0-35.0); MCHC 30.8 g/dL (31.0-37.0); MCV 96.1 fL (80.0-100.0); Mean Platelet Volume 8.9; Monocytes # (A) 0.4 k/uL (0-1.0); Monocytes % (A) 5 %; Neutrophils # (A) 3.6 k/uL (1.3-7.7); Neutrophils % (A) 46 %; Platelet Count 288 k/uL (150-450); RBC 4.59 m/uL (3.80-5.40); RDW 12.6 % (11.5-15.5); WBC 7.8 k/uL (3.8-10.6)
[2019-11-20 11:34] LABS: Appearance,Urine Clear (Clear); Bilirubin,Urine Negative (Negative); Blood,Urine Negative (Negative); Color,Urine Yellow; Glucose,Urine (UA) Negative (Negative); Ketones,Urine Negative (Negative); Leukocyte Esterase,Urine Negative (Negative); Nitrite,Urine Negative (Negative); Protein,Urine Negative (Negative); Specific Gravity,Urine 1.016 (1.001-1.035); Urobilinogen,Urine <2.0 mg/dL (<2.0)
[2019-11-20 11:42] LABS: ALT 29 U/L (4-34); AST 33 U/L (14-36); African American GFR (CKD) >90 (>60 ml/min/1.73 sqM); Albumin 4.3 g/dL (3.5-5.0); Alkaline Phosphatase 100 U/L (38-126); Anion Gap 5 mmol/L; Blood Urea Nitrogen 12 mg/dL (7-17); Carbon Dioxide 30 mmol/L (22-30); Chloride 104 mmol/L (98-107); Cholesterol 246 mg/dL (<200); Creatine Kinase 38 U/L (30-135); Glucose 93 mg/dL (74-99); HDL Cholesterol 64 mg/dL (40-60); LDH 413 U/L (313-618); LDL Cholesterol,Calculated 142 mg/dL (0-99); Magnesium 1.7 mg/dL (1.6-2.3); Non-African American GFR(CKD) 78 (>60 ml/min/1.73 sqM); Potassium 4.4 mmol/L (3.5-5.1); Sodium 139 mmol/L (137-145); Total Bilirubin 0.6 mg/dL (0.2-1.3); Total Protein 8.3 g/dL (6.3-8.2); Triglycerides 200 mg/dL (<150)
[2019-11-20 17:33] LABS: Hemoglobin A1C 5.5 % (4.0-6.0)
[2019-11-20 18:42] LABS: Rheumatoid Factor, Qnt 7 IU/mL (0-15)
[2019-11-20 18:53] LABS: Folate, Serum 20.6 ng/mL
== END | disposition home or self-care (01) ==
LOC: RADMAMWWP 08:19
PROVIDERS: ATTEND Obstetrics & Gynecology
DX: R92.8 Other abnormal and inconclusive findings on diagnostic imaging of breast (principal); Z00.00 Encounter for general adult medical examination without abnormal findings; M85.80 Other specified disorders of bone density and structure, unspecified site; Z79.899 Other long term (current) drug therapy; R00.2 Palpitations; R42 Dizziness and giddiness; R53.83 Other fatigue; M12.9 Arthropathy, unspecified
CPT/HCPCS: 36415; 77061; 77065; 80053; 80061; 81003; 82306; 82550; 82607; 82746; 83036; 83615; 83735; 84443; 84484; 85025; 86038; 86431

== ENCOUNTER → 2020-01-03 | Outpatient (CLI) | payer BC ==
[2020-01-03 10:06] VITALS: BP 132/76; PULSE 80; RESP 16; TEMP 98.3
--- NOTE | 2020-01-03 10:45 | P.GSHP ---
History of Present Illness H&P Date: 01/03/20 Chief Complaint: abnormal left breast mammogram Vielka is a 64-year-old white female seen in consultation for Dr. Lantigua status post bilateral screening mammogram on . No lesions of concern were identified in the right breast however in the left breast was recommended that she have a dictation will views as well as an ultrasound. On the additional views there were scattered fibroglandular densities and benign- appearing calcifications felt to be probably benign BIRADS 3, and an ultrasound no specific lesions of concern were noted felt to be again probably benign BIRADS 3 and follow-up left breast mammogram in 6 months was recommended. The patient is not complaining of any new lumps masses or nodules in either breast. She does not complain of any nipple discharge or skin changes. She has not had any recent trauma or infection in the breast. She has not had any surgery on either breast. Caffeine: One cup of coffee and this extensive Pepsi every day Nicotine: Negative Theophylline: Several days a week Family history: father: skin cancer brother: larynx cancer Hormonal History: menarche: 14 , breast fed: yes, age at first : 22 menopause: started early 40's, finished at 50 BCP: 7 years, had a tubal hormones: no used Surgical history: Ganglion cyst removed Lipoma left chest wall Exploratory laparotomy at 18 Bowel perforation secondary to diverticulitis/bowel resection and colostomy/ Apr 2019 Medical History: Diverticular disease/resected Multiple sclerosis diagnosed 2007, uses baclofin Social history: Smoke: Negative Alcohol: Wine occasionally Drugs: Negative - Constitutional Constitutional: Denies chills, Denies fever - EENT Eyes: denies blurred vision, denies pain Ears: deny: decreased hearing, tinnitus Ears, nose, mouth and throat: Reports headache, Denies sore throat - Breasts Breasts: bilateral: as per HPI - Cardiovascular Cardiovascular: Denies chest pain, Denies shortness of breath - Respiratory Comment: uncertain of cause followed by primary care Respiratory: Reports cough - Gastrointestinal Comment: diverticular disease and has had a resection Gastrointestinal: Denies abdominal pain, Denies diarrhea, Denies nausea, Denies vomiting - Genitourinary (Female) Genitourinary: Denies dysuria, Denies hematuria - Menstruation Menstruation: Reports postmenopausal - Musculoskeletal Musculoskeletal: Reports as per HPI - Integumentary Integumentary: Denies pruritus, Denies rash - Neurological Comment: multiple sclerosis - Psychiatric Psychiatric: Denies anxiety, Denies depression - Endocrine Endocrine: Denies fatigue, Denies weight change - Hematologic/Lymphatic Comment: none - Allergic/Immunologic Allergic/Immunologic: Reports seasonal allergies Past Medical History Past Medical History: Hyperlipidemia Additional Past Medical History / Comment(s): MS; History of Any Multi-Drug Resistant Organisms: None Reported Additional Past Surgical History / Comment(s): bilateral ganglion cyst removal; excision of fatty tumor under left breast; perforated bowel; Past Anesthesia/Blood Transfusion Reactions: No Reported Reaction Past Psychological History: No Psychological Hx Reported Smoking Status: Former smoker Past Alcohol Use History: None Reported Additional Past Alcohol Use History / Comment(s): smoked a couple years in teens, quit age 20 Past Drug Use History: None Reported - Past Family History Mother Family Medical History: Asthma Additional Family Medical History / Comment(s): diverticulitis Father Family Medical History: Coronary Artery Disease (CAD), Hypertension Medications and Allergies Home Medications Medication Instructions Recorded Confirmed Type Baclofen 10 mg PO HS 03/12/19 01/03/20 History Montelukast [Singulair] 10 mg PO HS 03/12/19 01/03/20 History Famotidine [Pepcid] 20 mg PO BID PRN 05/03/19 01/03/20 History Fluticasone Nasal [place] [Flonase 1 spray EA NOSTRIL DAILY PRN 05/03/19 01/03/20 History Nasal [place]] Fluticasone/Salmeterol [Advair Hfa 2 puff INHALATION BID PRN 05/03/19 01/03/20 History 115-21 Mcg Inhaler] Allergies Allergy/AdvReac Type Severity Reaction Status Date / Time Sulfa (Sulfonamide Allergy Swelling Verified 01/03/20 09:59 Antibiotics) Surgical - Exam Vital Signs Temp Pulse Resp BP Pulse Ox 98.3 F 80 16 132/76 96 01/03/20 10:01 01/03/20 10:01 01/03/20 10:01 01/03/20 10:01/03/20 10:01 BMI 30.2 - General well developed, well nourished, no distress - Eyes normal ocular movement - ENT no hearing loss, no congestion - Neck no masses, trachea midline - Respiratory normal respiratory effort, clear to auscultation right: wheezing (right lung bases mild wheezing) - Cardiovascular Rhythm: regular Heart Sounds: normal: S1, S2 - Abdomen Abdomen: soft, non tender, no guarding, no rigid, no rebound - Integumentary no rash, no abnormal pigmentation - Neurologic no disoriented, no combative - Musculoskeletal normal gait, normal posture - Psychiatric oriented to time, oriented to person, oriented to place, speech is normal, memory intact Breast exam: BRA 40B inspection: Bilateral grade 3 ptosis Right breast: Multi-positional exam no dominant masses or nodules of concern, fibrocystic changes Right axilla: No adenopathy of concern Left breast: Multi-positional exam no dominant masses or nodules of concern Left axilla: No adenopathy of concern Results Mammogram and ultrasound results reviewed Assessment and Plan Assessment: Impression: 1. Radiographic abnormality left breast on mammogram, this is felt to be benign BIRADS 3 and follow-up right breast left breast mammogram in 6 months recommended 2. Fibrocystic breast changes 3. Multiple sclerosis 4. Slight wheezing right lung base to follow with primary care doctor Plan: 1. Left breast mammogram in 6 months with physician exam at that time 2. Follow primary care doctor secondary to right lung base wheezing/coughing CC: Dr. Lantigua/Dr. Dorsey encounter 30 minutes, > 50% of time in planning and counselling
== END | disposition home or self-care (01) ==
LOC: WWCWWP 09:52
PROVIDERS: ATTEND Surgery
DX: Z53.9 Procedure and treatment not carried out, unspecified reason (principal)

== ENCOUNTER → 2020-01-05 | Outpatient (CLI) | payer BC ==
--- NOTE | 2020-01-05 11:47 | XR ---
EXAMINATION TYPE: XR chest 2V DATE OF EXAM: 01/05/2020 COMPARISON: Chest x-ray February 04, 2010 HISTORY: Cough. TECHNIQUE: Frontal and lateral views of the chest are obtained. FINDINGS: Improved inspiration on current study. There is no focal air space opacity, pleural effusi on, or pneumothorax seen. The cardiac silhouette size remains within normal limits. The osseous st ructures are intact. IMPRESSION: No suspicious new acute pulmonary process.
== END | disposition home or self-care (01) ==
LOC: RADXRMAIN 11:00
PROVIDERS: ATTEND Family Medicine
DX: R05 Cough (principal)
CPT/HCPCS: 71046

== ENCOUNTER → 2020-07-04 | Outpatient (CLI) | payer MEDICARE ==
--- NOTE | 2020-07-04 12:12 | MM ---
Reason for exam: follow-up at short interval from prior study. Last mammogram was performed 7 months ago. History: Patient is postmenopausal. Took hormonal contraceptives for 15 years. Physical Findings: Nurse did not find any significant physical abnormalities on exam. MG 3D Diag Mammo W/Cad LT CC and MLO view(s) were taken of the left breast. Prior study comparison: November 20, 2019, left breast MG 3d work up w/cad LT. November 08, 2019, bilateral MG 3d screening mammo w/cad. There are scattered fibroglandular densities. There is chronic nodularity in the left breast. These results were verbally communicated with the patient and result sheet given to the patient on 07/04/20. ASSESSMENT: Benign, BI-RAD 2 RECOMMENDATION: Return to routine screening mammogram schedule for both breasts. Back on schedule for October 2020.
== END | disposition home or self-care (01) ==
LOC: RADMAMWWP 10:52
PROVIDERS: ATTEND Surgery
DX: R92.8 Other abnormal and inconclusive findings on diagnostic imaging of breast (principal)
CPT/HCPCS: 77065; G0279; 77061

== ENCOUNTER → 2020-07-09 | Outpatient (CLI) | payer MEDICARE ==
--- NOTE | 2020-07-09 08:35 | XR ---
EXAMINATION TYPE: XR chest 2V DATE OF EXAM: 07/09/2020 COMPARISON: 01/05/2020 INDICATION: Cough TECHNIQUE: Frontal and lateral views of the chest are obtained. FINDINGS: The heart size is normal. The pulmonary vasculature is normal. The lungs are clear. IMPRESSION: 1. No acute pulmonary process.
== END | disposition home or self-care (01) ==
LOC: RADXRMAIN 07:40
PROVIDERS: ATTEND Family Medicine
DX: R05 Cough (principal)
CPT/HCPCS: 71046

== ENCOUNTER → 2020-07-11 | Outpatient (CLI) | payer MEDICARE | END | disposition home or self-care (01) | LOC: LABWHC1 14:17 | PROVIDERS: ATTEND Family Medicine | DX: Z20.822 Contact with and (suspected) exposure to COVID-19 (principal); R05 Cough | CPT/HCPCS: U0003; C9803; U0005 ==

== ENCOUNTER → 2020-07-18 | Outpatient (CLI) | payer MEDICARE ==
[2020-07-18 15:33] LABS: Basophils # (A) 0.1 k/uL (0-0.2); Basophils % (A) 1 %; Eosinophils # (A) 0.3 k/uL (0-0.7); Eosinophils % (A) 3 %; HCT 42.5 % (34.0-46.0); HGB 14.4 gm/dL (11.4-16.0); Lymphocytes # (A) 3.9 k/uL (1.0-4.8); Lymphocytes % (A) 47 %; MCH 32.1 pg (25.0-35.0); MCHC 33.9 g/dL (31.0-37.0); MCV 94.4 fL (80.0-100.0); Mean Platelet Volume 8.4; Monocytes # (A) 0.4 k/uL (0-1.0); Monocytes % (A) 5 %; Neutrophils # (A) 3.5 k/uL (1.3-7.7); Neutrophils % (A) 42 %; Platelet Count 285 k/uL (150-450); RDW 12.5 % (11.5-15.5); WBC 8.4 k/uL (3.8-10.6)
[2020-07-18 15:45] LABS: Total Eosinophil Count 268 #EOS/uL (150-300)
[2020-07-18 16:48] LABS: Erythrocyte Sedimentation Rate 15 mm/hr (0-20)
[2020-07-22 13:37] LABS: Immunoglobulin M 89.3 mg/dL (40.0-280.0)
== END | disposition home or self-care (01) ==
LOC: LABWHC1 14:15
PROVIDERS: ATTEND Internal Medicine
DX: J45.991 Cough variant asthma (principal); J01.90 Acute sinusitis, unspecified; R05 Cough
CPT/HCPCS: 36415; 82784; 82785; 85008; 85025; 85652; 86038

== ENCOUNTER → 2020-07-31 | Outpatient (CLI) | payer MEDICARE ==
--- NOTE | 2020-07-31 09:17 | CT ---
EXAMINATION TYPE: CT chest wo con DATE OF EXAM: 07/31/2020 COMPARISON: None HISTORY: difficulty breathing CT DLP: 685.7 mGycm High-resolution noncontrast CT of the chest was performed with the patient in the prone and supine po sitions. Lung and mediastinal window settings are submitted. The lungs appear to be well-aerated. I do not see evidence for fibrotic change. There is no eviden ce for groundglass infiltrate, nodule or mass. No pleural effusion is identified. Very mild bronchie ctasis suggested. I do not see evidence for hilar or mediastinal mass or adenopathy. IMPRESSION: Very mild bronchiectasis suggested. Otherwise unremarkable study.
== END | disposition home or self-care (01) ==
LOC: RADCTMAIN 08:49
PROVIDERS: ATTEND Internal Medicine
DX: J47.9 Bronchiectasis, uncomplicated (principal)
CPT/HCPCS: 71250

== ENCOUNTER → 2020-12-11 | Outpatient (CLI) | payer MEDICARE ==
[2020-12-11 14:56] LABS: Basophils # (A) 0.05 X 10*3/uL (0.00-0.10); Basophils % (A) 0.8 %; Eosinophils # (A) 0.22 X 10*3/uL (0.04-0.35); Eosinophils % (A) 3.6 %; HCT 39.4 % (37.2-46.3); HGB 12.3 g/dL (12.0-15.0); Lymphocytes # (A) 3.59 X 10*3/uL (0.90-5.00); MCH 31.3 pg (27.0-32.0); MCHC 31.2 g/dL (32.0-37.0); MCV 100.3 fL (80.0-97.0); Mean Platelet Volume 10.7 fL (9.5-12.2); Monocytes # (A) 0.55 X 10*3/uL (0.20-1.00); Monocytes % (A) 8.9 %; Neutrophils # (A) 1.77 X 10*3/uL (1.80-7.70); Neutrophils % (A) 28.5 %; Platelet Count 267 X 10*3/uL (140-440); RBC 3.93 X 10*6/uL (4.10-5.20); RDW 13.3 % (11.5-14.5); WBC 6.19 X 10*3/uL (4.50-10.00)
[2020-12-11 16:53] LABS: Hemoglobin A1C 5.3 % (4.0-6.0)
[2020-12-12 01:10] LABS: African American GFR (CKD) 89.7 (60.0-200.0); Albumin 3.8 g/dL (3.80-4.90); Albumin/Globulin Ratio 1.15 (1.60-3.17); Anion Gap 10.8 mmol/L (4.00-12.00); BUN/Creat Ratio 23.75 Ratio (12.00-20.00); Calcium 9.2 mg/dL (8.7-10.3); Carbon Dioxide 24.2 mmol/L (21.6-31.8); Chol/HDL Ratio 2.96; Globulin 3.3 g/dL (1.6-3.3); LDL Cholesterol,Calculated 117.2 mg/dL (0.0-131.0); Non-African American GFR(CKD) 77.4 (60.0-200.0); Potassium 4.5 mmol/L (3.5-5.5); Total Bilirubin 0.7 mg/dL (0.2-1.2); Total Protein 7.1 g/dL (6.2-8.2); VLDL Calculation 21.8 mg/dL (5.00-40.00)
== END | disposition home or self-care (01) ==
LOC: LABWHC1 08:13
PROVIDERS: ATTEND Family Medicine
DX: Z00.00 Encounter for general adult medical examination without abnormal findings (principal); I10 Essential (primary) hypertension; E78.5 Hyperlipidemia, unspecified; M85.80 Other specified disorders of bone density and structure, unspecified site
CPT/HCPCS: 36415; 80053; 80061; 82306; 83036; 84443; 85025

== ENCOUNTER → 2021-11-02 | Outpatient (CLI) | payer MEDICARE ==
--- NOTE | 2021-11-02 12:15 | BD ---
EXAMINATION TYPE: Axial Bone Density DATE OF EXAM: 11/02/2021 COMPARISON: 03.22.2017 IN DATABASE CLINICAL HISTORY: 66 years year old Female. ICD-10 CODE: M89.9 BONE DENSITY Height: 63 Weight: 175 FRAX RISK QUESTIONS: Family History (Parent hip fracture): NO FX Glucocorticoids (More than 3mos): YES (Ex: prednisone, prednisolone, methylprednisolone, dexamethasone, and hydrocortisone). History of Fracture in Adulthood: YES RISK FACTORS HISTORY OF: HX OF FX TO RT ANKLE AND LT KNEE LAST YEAR...2020 Family History of Osteoporosis: YES, MOTHER, NO FX Active: YES Diet low in dairy products/other sources of calcium: YES Postmenopausal woman: YES, AT 51 YRS OLD Lost more than 2 inches in height since high school: YES Hyperparathyroidism: NO Adrenal Insufficiency: NO MEDICATIONS: Prednisone or other steroids: YES, ASTHMA, FOR 5 YRS Additional Medications: ROLAIDS, REFLUX MEDS, VIT D, CALCIUM, Additional History: REFLUX, ASTHMA, EXAM MEASUREMENTS: Bone mineral densitometry was performed using the [employer] System. Bone mineral density as measured about the Lumbar spine is: ----- L1-L4(G/cm2): 0.952 T Score Values are as follows: ----- L1: -3.3 ----- L2: -2.0 ----- L3: -1.5 ----- L4: -1.2 ----- L1-L4: -1.9 Bone mineral density has: Decreased -2.6% since study of: 03.22.2017 Bone mineral density about the R hip (g/cm2): 0.935 Bone mineral density about the L hip (g/cm2): 0.952 T Score values are as follows: -----R Neck: -2.0 -----L Neck: -1.9 -----R Total: -0.6 -----L Total: -0.4 Bone mineral density has: Decreased -5.0% since study of: 03.22.2017 FRAX%s: The graph provided illustrates a 26.3% chance for a major osteoporotic fx and a 4.7% chance f or the hips probability for fx in 10 years time. IMPRESSION: Osteopenia (T Score between -2.5 and -1). There is slightly increased risk of fracture and the patient may be considered for treatment. Re-Screen 2-5 years. NOTE: T-SCORE=SD OF THE YOUNG ADULT MEAN.
== END | disposition home or self-care (01) ==
LOC: RADBDWWP 09:17
PROVIDERS: ATTEND Internal Medicine
DX: M81.0 Age-related osteoporosis without current pathological fracture (principal)
CPT/HCPCS: 77080

== ENCOUNTER → 2021-12-24 | Outpatient (CLI) | payer MEDICARE ==
--- NOTE | 2021-12-24 15:22 | US ---
EXAMINATION TYPE: US kidneys/renal and bladder DATE OF EXAM: 12/24/2021 COMPARISON: CT 2019 CLINICAL HISTORY: PROTEINURIA R80.9. Proteinuria. EXAM MEASUREMENTS: Right Kidney: 11.2 x 5.9 x 4.7 cm Left Kidney: 11.4 x 5.4 x 4.9 cm Right Kidney: Indistinct, isoechoic area seen upper pole: 3.0 x 2.8 x 2.0 cm. Limited visibility. Left Kidney: No hydronephrosis or masses seen Bladder: Not fully distended, limited. Bilateral Jets seen: Yes IMPRESSION: No hydronephrosis seen bilaterally. There is 3.0 cm lesion upper pole right kidney not de finitively classified as simple cyst on this exam. Advise renal protocol contrast-enhanced CT or MRI to further evaluate.
== END | disposition home or self-care (01) ==
LOC: RADUSWWP 14:12
PROVIDERS: ATTEND Internal Medicine
DX: R80.9 Proteinuria, unspecified (principal); N28.9 Disorder of kidney and ureter, unspecified
CPT/HCPCS: 76770

== ENCOUNTER 2022-01-21 06:19 | Day surgery (SDC) | payer MEDICARE ==
[~2022-01-21 06:19] MED LIST changes: -HEPARIN SODIUM,PORCINE 5,000 UNIT/ML 1 ML VIAL SQ ONE; +LACTATED RINGERS 1,000 ML IV SCH; -metroNIDAZOLE-NS PMX 500 MG in SALINE 1 100ML.BAG IVPB ONE
[2022-01-21] MEDS ORDERED: ONDANSETRON 4 MG/2 ML VIAL ONE (07:10)
[2022-01-21 07:15] VITALS: TEMP 98.2
[2022-01-21] MEDS ORDERED: ONDANSETRON 4 MG/2 ML VIAL IVP ONE (07:19)
[2022-01-21] MEDS ORDERED: fentaNYL (PF) 50 MCG/ML 2 ML AMP ONE (07:23)
[2022-01-21] MEDS ORDERED: MIDAZOLAM 2 MG/2 ML VIAL ONE (07:23)
[2022-01-21] MEDS ORDERED: PROPOFOL 10 MG/ML 20 ML VIAL IV ONE (07:23)
[2022-01-21 08:27] LABS: Basophils # (A) 0.1 k/uL (0-0.2); Basophils % (A) 1 %; Eosinophils # (A) 0.3 k/uL (0-0.7); Eosinophils % (A) 4 %; HCT 41.4 % (34.0-46.0); HGB 13.9 gm/dL (11.4-16.0); Lymphocytes # (A) 3.4 k/uL (1.0-4.8); Lymphocytes % (A) 42 %; MCHC 33.5 g/dL (31.0-37.0); MCV 95.4 fL (80.0-100.0); Mean Platelet Volume 10.3; Monocytes # (A) 0.6 k/uL (0-1.0); Monocytes % (A) 7 %; Neutrophils # (A) 3.4 k/uL (1.3-7.7); Neutrophils % (A) 42 %; Platelet Count 241 k/uL (150-450); RBC 4.34 m/uL (3.80-5.40); RDW 12.5 % (11.5-15.5); Reticulocyte % 1.2 % (0.5-2.0)
[2022-01-21 08:47] VITALS: BP 133/85; PULSE 65; RESP 16
--- NOTE | 2022-01-21 13:17 | OP ---
OPERATIVE REPORT PROCEDURE PERFORMED: Bone marrow biopsy with local and general sedation of the right iliac crest. PREPROCEDURE DIAGNOSIS: Monoclonal gammopathy. POSTPROCEDURE DIAGNOSIS: Monoclonal gammopathy. OPERATIVE NOTE: Ms. Lopez was laid in the left lateral decubitus position with the right iliac crest exposed. Posterior superior iliac spine was palpated and marked with a non-permanent skin marker. The skin was then prepared with 3 swabs of Betadine and 3 swabs of alcohol for sterilization. Following administration of general sedation, 10 mL of 1% lidocaine was administered to the posterior superior iliac spine and the skin. A 2-cm incision was then made into the skin. The bone marrow was then accessed with a 4-inch Jamshidi needle. Approximately 12 mL of bone marrow aspirate was obtained along with a 1 to 2 cm bone marrow core biopsy. Ms. Lopez tolerated the procedure well without complications. She had approximately 1 mL of blood loss. She was taken back to the postoperative area for recovery. Studies will be sent for flow cytometry morphology, cytogenetics, FISH and next generation sequencing. We will follow up on the studies in the clinic. MMODL / IJN: [id number] /
== END 2022-01-21 08:45 | disposition home or self-care (01) ==
LOC: OR 06:19
PROVIDERS: ATTEND Internal Medicine
DX: D47.2 Monoclonal gammopathy (principal); D41.10 Neoplasm of uncertain behavior of unspecified renal pelvis; G35 Multiple sclerosis; Z71.3 Dietary counseling and surveillance; Z88.1 Allergy status to other antibiotic agents; E78.5 Hyperlipidemia, unspecified; Z87.891 Personal history of nicotine dependence; K21.9 Gastro-esophageal reflux disease without esophagitis; Z79.890 Hormone replacement therapy
CPT/HCPCS: 38222; 85025; 85045; J2250; J2405; J3010; J2704

== ENCOUNTER → 2022-01-28 | Outpatient (CLI) | payer MEDICARE ==
--- NOTE | 2022-01-29 08:55 | MM ---
Reason for Exam: Screening (asymptomatic). Last mammogram was performed 2 year(s) and 3 month(s) ago. Patient History: Menarche at age 14. First Full-Term at age 22. Postmenopausal. Patient has history of breast feeding. Patient used Hormonal Contraceptives for 15 years. Risk Values: Salma 5 year model risk: 1.4%. NCI Lifetime model risk: 4.9%. Prior Study Comparison: 11/08/2019 Bilateral Screening Mammogram, [facility]. 11/20/2019 Left Diagnostic Mammogram, [facility]. 07/04/2020 Left Diagnostic Mammogram, [facility]. Tissue Density: There are scattered fibroglandular densities. Findings: Analyzed By CAD. There is no suspicious group of microcalcifications or new suspicious mass in either breast. Overall Assessment: Negative, BI-RAD 1 Management: Screening Mammogram of both breasts in 1 year. 1. Patient should continue monthly self breast exams. 2. A clinical breast exam by your physician is recommended on an annual basis. 3. This exam should not preclude additional follow-up of suspicious palpable abnormalities. Electronically signed and approved by: Jam Hood M.D. Radiologist
== END | disposition home or self-care (01) ==
LOC: RADMAMWWP 10:51
PROVIDERS: ATTEND Internal Medicine
DX: Z12.31 Encounter for screening mammogram for malignant neoplasm of breast (principal); Z78.0 Asymptomatic menopausal state
CPT/HCPCS: 77063; 77067

== ENCOUNTER → 2022-03-02 | Outpatient (CLI) | payer MEDICARE ==
--- NOTE | 2022-03-02 11:29 | XR ---
EXAMINATION TYPE: XR chest 2V DATE OF EXAM: 03/02/2022 11:22 AM COMPARISON: Chest radiographs from 07/09/2020 TECHNIQUE: XR chest 2V Frontal and lateral views of the chest. CLINICAL INDICATION:Female, 66 years old with history of Z01.818 PRE OP; FINDINGS: Lungs/Pleura: There is no evidence of pleural effusion, focal consolidation, or pneumothorax. Pulmonary vascularity: Unremarkable. Heart/mediastinum: Cardiomediastinal silhouette is unremarkable. Musculoskeletal: No acute osseous pathology. IMPRESSION: No acute cardiopulmonary disease/process.
[2022-03-02 18:30] LABS: Basophils # (A) 0.05 X 10*3/uL (0.00-0.10); Basophils % (A) 0.8 %; Eosinophils # (A) 0.27 X 10*3/uL (0.04-0.35); Eosinophils % (A) 4.1 %; HCT 40.7 % (37.2-46.3); HGB 13.1 g/dL (12.0-15.0); Immature Grans, Automated 0.3 %; Lymphocytes % (A) 44.1 %; MCH 30.7 pg (27.0-32.0); MCHC 32.2 g/dL (32.0-37.0); MCV 95.3 fL (80.0-97.0); Mean Platelet Volume 11.1 fL (9.5-12.2); Monocytes # (A) 0.58 X 10*3/uL (0.20-1.00); Monocytes % (A) 8.8 %; NRBC Per 100 WBC 0 /100 WBCS (0.0-0.0); Neutrophils # (A) 2.75 X 10*3/uL (1.80-7.70); Neutrophils % (A) 41.9 %; Platelet Count 263 X 10*3/uL (140-440); RBC 4.27 X 10*6/uL (4.10-5.20); RDW 12.7 % (11.5-14.5); WBC 6.57 X 10*3/uL (4.50-10.00)
[2022-03-02 19:42] LABS: African American GFR (CKD) 77.2 (60.0-200.0); Anion Gap 13.6 mmol/L (10.00-18.00); BUN/Creat Ratio 12.56 Ratio (12.00-20.00); Blood Urea Nitrogen 11.3 mg/dL (9.0-27.0); Calcium 8.5 mg/dL (8.7-10.3); Carbon Dioxide 22.4 mmol/L (20.0-27.5); Non-African American GFR(CKD) 66.6 (60.0-200.0); Potassium 5.6 mmol/L (3.5-5.5)
== END | disposition home or self-care (01) ==
LOC: LABWHC1 10:38
PROVIDERS: ATTEND Urology
DX: Z01.812 Encounter for preprocedural laboratory examination (principal); Z01.818 Encounter for other preprocedural examination; D41.01 Neoplasm of uncertain behavior of right kidney
CPT/HCPCS: 36415; 71046; 80048; 85025; 93005

== ENCOUNTER 2022-03-11 05:33 | Day surgery (SDC) | payer MEDICARE ==
[2022-03-11] MEDS ORDERED: DEXAMETHASONE SOD PHOSPHATE 4 MG/ML 1 ML VIAL IV ONE ×2 (06:12→06:55)
[2022-03-11] MEDS ORDERED: LIDOCAINE 1% (10MG/ML) FOR IV START INTRADERMA PRN (06:12)
[2022-03-11] MEDS ORDERED: MIDAZOLAM 2 MG/2 ML VIAL IV PRN (06:12)
[2022-03-11] MEDS ORDERED: ONDANSETRON 4 MG/2 ML VIAL IVP ONE (06:12)
[2022-03-11] MEDS ORDERED: ONDANSETRON 4 MG/2 ML VIAL ONE (06:13)
--- NOTE | 2022-03-11 06:17 | XR ---
EXAMINATION TYPE: XR KUB DATE OF EXAM: 03/11/2022 COMPARISON: NONE HISTORY: Pain TECHNIQUE: FINDINGS: Supine view shows no sign of intestinal obstruction or pneumoperitoneum. Fecal pattern is n ormal. There is previous surgery at the rectum. Bony structures are intact. No evidence of a mass. IMPRESSION: Nonacute abdomen.
[2022-03-11] MEDS: LACTATED RINGERS 1,000 ML IV SCH ×2 (06:40→06:50)
[2022-03-11] MEDS ORDERED: LIDOCAINE 1% (10MG/ML) FOR IV START INTRADERMA ONE (06:40)
[2022-03-11] MEDS ORDERED: SCOPOLAMINE 1 MG/72 HR PATCH TRANSDERM ONE (06:55)
[2022-03-11] MEDS ORDERED: ROCURONIUM 10 MG/ML (5 ML VIAL) IV ONE (07:29)
[2022-03-11] MEDS ORDERED: PROPOFOL 10 MG/ML 20 ML VIAL IV ONE (07:29)
[2022-03-11] MEDS ORDERED: DEXAMETHASONE SOD PHOSPHATE 4 MG/ML 1 ML VIAL ONE (07:29)
[2022-03-11] MEDS ORDERED: fentaNYL (PF) 50 MCG/ML 2 ML AMP ONE (07:29)
[2022-03-11] MEDS ORDERED: GLYCOPYRROLATE 0.2 MG/ML 2 ML VIAL ONE (07:29)
[2022-03-11] MEDS ORDERED: NEOSTIGMINE 1 MG/ML 10 ML VIAL ONE (07:29)
[2022-03-11] MEDS ORDERED: LIDOCAINE 2% INJ 20 MG/ML (2 ML VIAL) ONE (07:29)
[2022-03-11] MEDS ORDERED: ePHEDrine 50 MG/ML 1 ML VIAL ONE (07:29)
[2022-03-11] MEDS ORDERED: SODIUM CHLORIDE 0.9% (PF) 10 ML VIAL ONE (07:29)
[2022-03-11] MEDS ORDERED: MANNITOL 25% 12.5 GM/50 ML VIAL ONE (07:29)
[2022-03-11] MEDS ORDERED: ROPIVACAINE 5 MG/ML 30 ML VIAL ONE (07:29)
[2022-03-11] MEDS ORDERED: HYDROmorphone (PF) 1 MG/ML ONE (07:29)
--- NOTE | 2022-03-11 07:42 | P.HPIHPCON ---
History of Present Illness H&P Date: 03/11/22 This is a 66-year-old female with history of a 2.7 cm right-sided renal mass. Discussed the finding with her in detail. Discussed that is concerning for renal cell carcinoma. Discussed with her the option of a robotic right-sided partial nephrectomy. Discussed the risk which includes but not limited to bleeding, infection, injury to nearby organs which includes but not limited to the liver, bowel. Discussed also the potential of conversion to radical nephrectomy. Discussed if this happens is at higher risk of hemodialysis. Discussed also risk of cancer recurrence. Discussed the importance of continued surveillance post surgery. Discussed with her also given her previous surgery she is at high risk of complications. She understood all the risk and agreed to proceed Consent for Procedure: I have explained the operation/procedure to the patient, including the risks, benefits, side effects, alternative therapies (including not receiving the proposed treatment or service), the likelihood of the patient achieving his/her goals, and potential recuperation problems for the procedure/sedation/analgesia, as well as any blood products, if indicated. I also explained to the patient the risks, benefits and side effects of the alternatives, as well as the risks related to not receiving the proposed procedure, care, treatment, or services. Past Medical History Past Medical History: Cancer, Hyperlipidemia Additional Past Medical History / Comment(s): MS. KIDNEY CANCER-NEW DIAGNOSIS. MGUS (MONOCLONAL GAMMOPATHY OF UNDETERMINED SIGNIFICANCE)-NEW DIAGNOSIS. HAD DIPTHERIA A BABY. History of Any Multi-Drug Resistant Organisms: None Reported Past Surgical History: Bowel Resection Additional Past Surgical History / Comment(s): KEYSHA CATARACT REMOVAL WITH LENS. bilateral ganglion cyst removal; excision of fatty tumor under left breast; perforated bowel with bowel resection, NO COLOSTOMY Past Anesthesia/Blood Transfusion Reactions: No Reported Reaction Smoking Status: Former smoker - Past Family History Mother Family Medical History: Asthma Additional Family Medical History / Comment(s): diverticulitis Father Family Medical History: Coronary Artery Disease (CAD), Hypertension Medications and Allergies Home Medications Medication Instructions Recorded Confirmed Type Baclofen 10 mg PO HS 03/12/19 03/08/22 History Montelukast [Singulair] 10 mg PO HS 03/12/19 03/08/22 History Famotidine [Pepcid] 20 mg PO BID PRN 05/03/19 03/08/22 History Fluticasone Nasal [place] [Flonase 1 spray EA NOSTRIL DAILY PRN 05/03/19 03/08/22 History Nasal [place]] Fluticasone Propion/Salmeterol 2 puff INHALATION BID PRN 05/03/19 03/08/22 History [Advair Hfa 115-21 Mcg Inhaler] Allergies Allergy/AdvReac Type Severity Reaction Status Date / Time Sulfa (Sulfonamide Allergy Swelling Verified 03/11/22 06:19 Antibiotics) Surgical - Exam Vital Signs Temp Pulse Resp BP Pulse Ox 97.1 F L 73 16 154/74 99 03/11/22 06:24 03/11/22 06:24 03/11/22 06:24 03/11/22 06:24 03/11/22 06:24 - General no distress, no pain - Respiratory normal expansion, normal respiratory effort - Abdomen Abdomen: soft, non tender - Psychiatric oriented to time, oriented to person, oriented to place Results - Labs 03/11/22 06:49 Diabetes panel 03/11/22 Range/Units 06:49 Potassium 4.3 (3.5-5.1) mmol/L Pituitary panel 03/11/22 Range/Units 06:49 Potassium 4.3 (3.5-5.1) mmol/L Adrenal panel 03/11/22 Range/Units 06:49 Potassium 4.3 (3.5-5.1) mmol/L Assessment and Plan Assessment: OR for right-sided partial nephrectomy
[2022-03-11] MEDS ORDERED: FAMOTIDINE 20 MG TAB PO PRN (07:44)
[2022-03-11] MEDS ORDERED: SYMBICORT 160-4.5 MCG INHALER INHALATION PRN (07:44)
[2022-03-11] MEDS ORDERED: FLUTICASONE 50MCG/SPRAY NASAL 16GM EA NOSTRIL PRN (07:44)
[2022-03-11] MEDS ORDERED: HYDROmorphone 1 MG/ML 1 ML SYRINGE IVP PRN (07:45)
[2022-03-11] MEDS ORDERED: LACTATED RINGERS 1,000 ML IV ONE (10:20)
[2022-03-11] MEDS: HYDROmorphone 0.5 MG/0.5 ML SYRINGE IVP PRN ×4 (11:17→14:06)
--- NOTE | 2022-03-11 11:45 | P.OP ---
Date of Procedure: 03/11/22 Preoperative Diagnosis: Right renal mass Postoperative Diagnosis: Same Procedure(s) Performed: Robotic-assisted laparoscopic right-sided partial nephrectomy, intraoperative ultrasound Implants: none Anesthesia: ALLIE Surgeon: Monico Shaffer [employer] Consultant #1: Adam Laboy Estimated Blood Loss (ml): 75 Pathology: other (right renal mass) Condition: stable Disposition: PACU Indications for Procedure: This is a 66-year-old female with history of a 2.7 cm right-sided renal mass. Discussed the finding with her in detail. Discussed that is concerning for renal cell carcinoma. Discussed with her the option of a robotic right-sided partial nephrectomy. Discussed the risk which includes but not limited to bleeding, infection, injury to nearby organs which includes but not limited to the liver, bowel. Discussed also the potential of conversion to radical nephrectomy. Discussed if this happens is at higher risk of hemodialysis. Discussed also risk of cancer recurrence. Discussed the importance of continued surveillance post surgery. Discussed with her also given her previous surgery she is at high risk of complications. She understood all the risk and agreed to proceed Description of Procedure: The patient was taken to the operating room . General anesthesia was induced. She was prepped and draped in sterile fashion, and was placed in modified flank position . All pressure points were padded. The abdominal insufflation was achieved with the Veress needle. A 8 mm camera port was placed. An additional robotic trocar was placed in the right upper quadrant. At this time using the LigaSure adhesions involving the lower quadrant were taken down . After lysing adhesions, the additional Robotic trocars and personal care assistant ports were placed under direct vision. a 5 mm liver retractor was placed. . The robot was docked into place. The colon was mobilized medially by incising along the white line of Toldt. Next the duodenum was kocherized. Once the bowel, was mobilized. At this time the gonadal vessel was visualized. Once the gonadal vessel and ureter was visualized , next after the psoas plane was developed the ureter and gonadal vessel was retracted anteriorly off the psoas muscle. Dissection proceeded cranially towards the renal hilum.The renal vessels were dissected. The renal artery and the vein was dissected in preparation for clamping. Next attention was carried to the tumor, the area around the tumor was defatted, insuring adequate defatting to identify a normal parenchyma. Given the posterior location of the tumor, the entire kidney was defatted. Next using the ultrasound, the tumor margin was clearly marked. The renal artery was clamped using 2 bulldogs. After clamping the renal artery the tumor was excised sharply with adequate margin, and cautery was used in areas of bleeding. Next the defect was closed in 2 layers using 30V lock for the inner layer, 20V lock in interrupted fashion for the outer layer. Sliding clip technique was used. Next the clamps were removed, there was no evidence of bleeding from the defect. Hemostatic agents were applied The kidney tumor was placed in an Endo Catch bag. The robot was then de-docked and the specimen was then removed by extending the personal care assistant port. Fascia was closed with one layer using vijay garcia. Skin was closed with subcuticular sutures and dermabond. The patient was awoken from general anesthesia in stable condition. all counts were correct Please refer to the final pathology report for final diagnosis
[2022-03-11] MEDS ORDERED: ARTIFICIAL TEARS-HYPROMELLOSE DROPS 15 ML BTL RIGHT EYE PRN (15:16)
[2022-03-11] MEDS: KETOROLAC 15 MG/ML 1 ML VIAL IVP SCH ×3 (15:45→23:26)
[2022-03-11] MEDS: MOXIFLOXACIN HCL 0.5% DROPS 3 ML BTL LEFT EYE SCH ×2 (17:08→21:19)
[2022-03-11] MEDS: HEPARIN SODIUM,PORCINE/PF 5,000 UNIT/0.5 ML SYRINGE SQ SCH ×2 (17:08→23:27)
[2022-03-11] MEDS: D5-0.45% NACL WITH KCL 20MEQ/L 1,000 ML IV SCH (17:58)
[2022-03-11] MEDS: CEPHALEXIN 500 MG CAP PO SCH (20:17)
[2022-03-11] MEDS ORDERED: BACLOFEN 10 MG TAB PO SCH (21:00)
[2022-03-11] MEDS ORDERED: MONTELUKAST 10 MG TAB PO SCH (21:00)
--- NOTE | 2022-03-11 21:51 | P.ANPRN ---
Procedure Note - Anesthesia - Nerve Block Performed Bilateral Erector Spinae Single Time Out Performed: Yes Date of Procedure: 03/11/22 Procedure Start Time: : Procedure Stop Time: Location of Patient: PreOp Indication: Acute Post-Operative Pain, Requested by Surgeon Sedation Type: Sedate with meaningful contact maintained Preparation: Sterile Prep Position: Prone Needle Types: Pajunk Needle Gauge: 21 Ultrasound used to visualize needle placement: Yes Ultrasound used to observe medication spread: Yes Blood Aspirated: No Pain Paresthesia on Injection Noted: No Resistance on Injection: Normal Image Stored and Saved: Yes Events: Uneventful and Well Tolerated (ropi .5% 15cc plus ns 10cc plus dexamethaone 4mg at L1 given bilaterally)
[2022-03-12] MEDS: D5-0.45% NACL WITH KCL 20MEQ/L 1,000 ML IV SCH ×2 (01:31→10:08)
[2022-03-12] MEDS: KETOROLAC 15 MG/ML 1 ML VIAL IVP SCH ×2 (06:05→12:07)
--- NOTE | 2022-03-12 06:39 | CONS ---
CONSULTATION CHIEF COMPLAINT: Pain, discomfort, and tearing of left eye. HISTORY OF PRESENT ILLNESS: The patient has major surgery and after surgery, she developed redness and pain in the left eye associated with itching. Medical history reviewed in detail. Eye examination, vision with reading glasses 20/20 in both eyes. Extraocular motility normal. Lids normal. Confrontation normal. Pupils equal and reactive. Left cornea shows very small superficial abrasion measuring less than 1 to 2 mm. Anterior chamber, quiet. ASSESSMENT: 1. Left conjunctival erythema. 2. Left small superficial corneal abrasion. PLAN: I started the patient on Vigamox 1 drop 4 times a day to the left eye and Artificial Tears for the right eye. The patient is to call if she develops any problem in the near future. MMODL / IJN: [id number] /
[2022-03-12 09:27] LABS: Basophils # (A) 0.02 X 10*3/uL (0.00-0.10); Basophils % (A) 0.1 %; Eosinophils # (A) 0 X 10*3/uL (0.04-0.35); Eosinophils % (A) 0 %; HCT 34.1 % (37.2-46.3); HGB 10.9 g/dL (12.0-15.0); Immature Grans, Automated 0.6 %; Lymphocytes # (A) 1.58 X 10*3/uL (0.90-5.00); Lymphocytes % (A) 11.4 %; MCH 31.6 pg (27.0-32.0); MCV 98.8 fL (80.0-97.0); Mean Platelet Volume 11.8 fL (9.5-12.2); Monocytes % (A) 8.6 %; NRBC Per 100 WBC 0 /100 WBCS (0.0-0.0); Neutrophils % (A) 79.3 %; Platelet Count 208 X 10*3/uL (140-440); RBC 3.45 X 10*6/uL (4.10-5.20); RDW 12.8 % (11.5-14.5); WBC 13.88 X 10*3/uL (4.50-10.00)
[2022-03-12] MEDS: HEPARIN SODIUM,PORCINE/PF 5,000 UNIT/0.5 ML SYRINGE SQ SCH (09:40)
[2022-03-12] MEDS: CEPHALEXIN 500 MG CAP PO SCH (09:40)
[2022-03-12] MEDS: MOXIFLOXACIN HCL 0.5% DROPS 3 ML BTL LEFT EYE SCH (09:40)
[2022-03-12 09:47] LABS: Anion Gap 9.9 mmol/L (10.00-18.00); BUN/Creat Ratio 15.8 Ratio (12.00-20.00); Blood Urea Nitrogen 15.8 mg/dL (9.0-27.0); Calcium 8.8 mg/dL (8.7-10.3); Carbon Dioxide 23.1 mmol/L (20.0-27.5); Non-African American GFR(CKD) 58.7 (60.0-200.0); Potassium 5.3 mmol/L (3.5-5.5)
[2022-03-12] MEDS ORDERED: ACETAMINOPHEN TAB 325 MG TAB PO PRN (11:18)
[2022-03-12 11:49] VITALS: BP 101/52; PULSE 60; RESP 16; TEMP 98.3
== END 2022-03-12 14:37 | disposition home or self-care (01) ==
LOC: OR 05:33 → 5NMEDONC 14:50 → OR 03-12 14:37
PROVIDERS: ATTEND Urology
DX: N28.89 Other specified disorders of kidney and ureter (principal); G89.18 Other acute postprocedural pain; E78.5 Hyperlipidemia, unspecified; Z87.891 Personal history of nicotine dependence; Z88.2 Allergy status to sulfonamides; Z79.899 Other long term (current) drug therapy
CPT/HCPCS: 64461; 86900; 86901; 80048; 84132; 85025; 86850; 74018; 50543; C1762; J2250; J1100; J0690; J2405; J1170 ×2; J1885 ×2; J1644 ×2; 88307

== ENCOUNTER → 2022-12-15 | Outpatient (CLI) | payer MEDICARE ==
[2022-12-15 16:35] LABS: Basophils # (A) 0.08 X 10*3/uL (0.00-0.10); Basophils % (A) 1.3 %; Eosinophils # (A) 0.16 X 10*3/uL (0.04-0.35); Eosinophils % (A) 2.6 %; HCT 41.2 % (37.2-46.3); Lymphocytes # (A) 2.97 X 10*3/uL (0.90-5.00); Lymphocytes % (A) 47.4 %; MCH 31.8 pg (27.0-32.0); MCHC 31.6 d/dL (32.0-37.0); MCV 100.7 FL (80.0-97.0); Mean Platelet Volume 11.2 FL (9.5-12.2); Monocytes # (A) 0.62 X 10*3/uL (0.20-1.00); Monocytes % (A) 9.9 %; NRBC Per 100 WBC 0 X 10*3/uL (0.00-0.01); Neutrophils # (A) 2.42 X 10*3/uL (1.80-7.70); Neutrophils % (A) 38.6 %; Platelet Count 289 X 10*3/uL (140-440); RBC 4.09 X 10*6/uL (4.10-5.20); RDW 13.1 % (11.5-14.5); WBC 6.26 X 10*3/uL (4.50-10.00)
[2022-12-15 18:06] LABS: ALT 26 U/L (8-44); AST 25 U/L (13-35); Albumin 4.1 d/dL (3.8-4.9); Albumin/Globulin Ratio 1.32 Ratio (1.60-3.17); Alkaline Phosphatase 75 U/L (41-126); Blood Urea Nitrogen 13.6 mg/dL (9.0-27.0); Calcium 9.5 mg/dL (8.7-10.3); Carbon Dioxide 27.1 mmol/L (21.6-31.8); Chloride 105 mmol/L (96-109); Chol/HDL Ratio 3.88 Ratio; Globulin 3.1 d/dL (1.6-3.3); Glucose 89 mg/dL (70-110); LDL Cholesterol,Calculated 127.6 mg/dL (0.0-131.0); Potassium 4.7 mmol/L (3.5-5.5); Sodium 142 mmol/L (135-145); Total Bilirubin 0.5 mg/dL (0.3-1.2); Total Protein 7.2 d/dL (6.2-8.2)
== END | disposition home or self-care (01) ==
LOC: LABWHC1 08:28
PROVIDERS: ATTEND Internal Medicine
DX: Z11.59 Encounter for screening for other viral diseases (principal); M17.5 Other unilateral secondary osteoarthritis of knee; M85.80 Other specified disorders of bone density and structure, unspecified site
CPT/HCPCS: 36415; 80053; 80061; 82306; 84443; 85025; 87522

== ENCOUNTER → 2023-02-01 | Outpatient (CLI) | payer MEDICARE ==
--- NOTE | 2023-02-02 16:11 | MM ---
Reason for Exam: Screening (asymptomatic). Last screening mammogram was performed 12 month(s) ago. Patient History: Menarche at age 14. First Full-Term at age 22. Postmenopausal. Patient has history of breast feeding. Patient used Hormonal Contraceptives for 15 years. Risk Values: Salma 5 year model risk: 1.4%. NCI Lifetime model risk: 4.8%. Prior Study Comparison: 11/20/2019 Left Diagnostic Mammogram, [facility]. 07/04/2020 Left Diagnostic Mammogram, [facility]. 01/28/2022 Bilateral MG 3D screening mammo w/cad, [facility]. Tissue Density: There are scattered fibroglandular densities. Findings: Analyzed By CAD. Pattern appears symmetrical and stable. No significant interval change is evident. No suspicious groups of microcalcifications, spiculated or lobular masses, architectural distortion or other secondary signs of malignancy are mammographically apparent. Overall Assessment: Benign, BI-RAD 2 Management: Screening Mammogram of both breasts in 1 year. A negative mammogram report should not preclude additional follow up of suspicious palpable abnormalities. Patient should continue monthly self breast exam. A clinical breast exam by your physician is recommended on an annual basis and results should be correlated with mammographic findings. Electronically signed and approved by: Navi Tavera D.O. Radiologis
== END | disposition home or self-care (01) ==
LOC: RADMAMWWP 10:17
PROVIDERS: ATTEND Internal Medicine
DX: Z12.31 Encounter for screening mammogram for malignant neoplasm of breast (principal); Z78.0 Asymptomatic menopausal state
CPT/HCPCS: 77063; 77067

== ENCOUNTER → 2023-04-15 | Outpatient (CLI) | payer MEDICARE ==
--- NOTE | 2023-04-18 09:57 | MR ---
EXAMINATION TYPE: MR kidney wo/w con DATE OF EXAM: 04/15/2023 7:04 PM CLINICAL INDICATION:Female, 67 years old with history of C64.1 NEOPLASM RIGHT KIDNEY;, Tumor removed from right kidney, f/u. COMPARISON: MRI lumbar spine 06/16/2018. 1522 ultrasound. TECHNIQUE: Multiplanar multi-sequence imaging was performed without contrast. Post contrast imaging was performed. Post IV contrast subtraction images were also submitted for review. IV Contrast: 8 cc Gadobutrol FINDINGS: LOWER CHEST: No gross irregularity. ABDOMEN Liver: Signal dropout on chemical shift in phase imaging. Gallbladder and Bile ducts: No evidence for ductal dilation, or biliary stricture or evidence of chol edocholithiasis. The gallbladder is within normal limits. Pancreas: No ductal dilation. No evidence for solid mass. Spleen: Normal for size. Adrenal glands: Unremarkable. Kidneys: Postsurgical changes to the right upper kidney with small focus of intrinsic high T1 signal which could represent proteinaceous contents/hemorrhagic cyst. No suspicious renal masses. No hydrone phrosis or calculi visualized. No left renal solid neoplasms identified. Stomach and Bowel: No evidence for bowel wall thickening or evidence for obstruction. Scattered colon ic diverticula are present. The appendix is nondistended [id number]. Peritoneum: No evidence of pneumoperitoneum or free fluid. Vasculature: No aortic aneurysm. Musculoskeletal: The osseous structures appear intact. Lymph Nodes: No gross evidence for lymphadenopathy. Abdominal wall: Unremarkable. IMPRESSION: 1. Post surgical changes the right superior renal pole. No enhancing solid renal neoplasms. No lymph adenopathy. 2. Hepatic steatosis. 3. No acute abdominal process.
== END | disposition home or self-care (01) ==
LOC: RADMRIMAIN 17:48
PROVIDERS: ATTEND Urology
DX: C64.1 Malignant neoplasm of right kidney, except renal pelvis (principal); K76.0 Fatty (change of) liver, not elsewhere classified; N28.89 Other specified disorders of kidney and ureter
CPT/HCPCS: 74183; A9585

== ENCOUNTER → 2023-05-11 | Outpatient (CLI) | payer MEDICARE ==
--- NOTE | 2023-05-11 18:42 | XR ---
EXAMINATION TYPE: XR chest 2V DATE OF EXAM: 05/11/2023 COMPARISON: 03/02/2022 HISTORY: 67-year-old female C6 4.1, history of right renal cancer TECHNIQUE: Frontal and lateral views FINDINGS: The cardiomediastinal silhouette, aorta, and pulmonary vasculature are within normal limits. Lungs an d pleural spaces are clear. IMPRESSION: No acute cardiopulmonary process.
== END | disposition home or self-care (01) ==
LOC: RADXRMAIN 12:18
PROVIDERS: ATTEND Urology
DX: C64.1 Malignant neoplasm of right kidney, except renal pelvis (principal)
CPT/HCPCS: 71046

== ENCOUNTER 2023-07-08 10:01 | Emergency (ER) | payer MEDICARE ==
[2023-07-08 10:21] VITALS: TEMP 98
[2023-07-08] MEDS: PANTOPRAZOLE 40 MG/10 ML VIAL IVP STA (10:45)
[2023-07-08] MEDS: SODIUM CHLORIDE 0.9% 1,000 ML IV STA (10:45)
[2023-07-08] MEDS: KETOROLAC 15 MG/ML 1 ML VIAL IVP STA (10:46)
--- NOTE | 2023-07-08 10:53 | ED ---
General Adult HPI - General Chief complaint: Abdominal Pain Stated complaint: Abd Pain Time Seen by Provider: 07/08/23 10:06 Source: patient, RN notes reviewed Mode of arrival: ambulatory Limitations: no limitations - History of Present Illness Initial comments: 68 year old female presents to the emergency department for evaluation of right lower abdominal discomfort with associated reflux. She notes that over the weekend she has had a lot of reflux. She states that she has been belching up undigested food. She reports that following this she developed diarrhea and lower abdominal discomfort. She states that the pain is mostly in her right lower abdomen. She denies fever, chills. She states that she has not had any episodes of vomiting. She does have a history of partial bowel resection preformed by Dr. Black for perforated diverticulitis 5 years ago. - Related Data Home Medications Medication Instructions Recorded Confirmed Baclofen 10 mg PO BID 03/12/19 07/08/23 Montelukast [Singulair] 10 mg PO DAILY 03/12/19 07/08/23 Ascorbic Acid [Vitamin C] 1,000 mg PO DAILY 07/08/23 07/08/23 Cholecalciferol [Vitamin D3 (125 125 mcg PO DAILY 07/08/23 07/08/23 Mcg = 5000 Iu)] Ibuprofen [Motrin] 800 mg PO Q8H PRN 07/08/23 07/08/23 Multivit-Minerals/Folic Acid 0.4 mg PO DAILY 07/08/23 07/08/23 [One-A-Day Women's 50 Plus Tab] Previous Rx's Medication Instructions Recorded Metoclopramide [Reglan] 10 mg PO TID PRN #21 tab 07/08/23 Allergies Allergy/AdvReac Type Severity Reaction Status Date / Time Sulfa (Sulfonamide Allergy Swelling Verified 07/08/23 11:01 Antibiotics) Review of Systems ROS Statement: Those systems with pertinent positive or pertinent negative responses have been documented in the HPI. ROS Other: All systems not noted in ROS Statement are negative. Past Medical History Past Medical History: Hyperlipidemia Additional Past Medical History / Comment(s): MS; History of Any Multi-Drug Resistant Organisms: None Reported Additional Past Surgical History / Comment(s): bilateral ganglion cyst removal; excision of fatty tumor under left breast; perforated bowel; Past Anesthesia/Blood Transfusion Reactions: No Reported Reaction Past Psychological History: No Psychological Hx Reported Smoking Status: Former smoker Past Alcohol Use History: None Reported Past Drug Use History: None Reported - Past Family History Mother Family Medical History: Asthma Additional Family Medical History / Comment(s): diverticulitis Father Family Medical History: Coronary Artery Disease (CAD), Hypertension General Exam Limitations: no limitations General appearance: alert, in no apparent distress Head exam: Present: atraumatic, normocephalic, normal inspection Eye exam: Present: normal appearance, PERRL, EOMI. Absent: scleral icterus, conjunctival injection, periorbital swelling ENT exam: Present: normal exam, mucous membranes moist Neck exam: Present: normal inspection. Absent: tenderness, meningismus, lymp hadenopathy Respiratory exam: Present: normal lung sounds bilaterally. Absent: respiratory distress, wheezes, rales, rhonchi, stridor Cardiovascular Exam: Present: regular rate, normal rhythm, normal heart sounds. Absent: systolic murmur, diastolic murmur, rubs, gallop, clicks GI/Abdominal exam: Present: soft, tenderness (RLQ ), hyperactive bowel sounds. Absent: distended, guarding, rebound, rigid Extremities exam: Present: normal inspection, full ROM, normal capillary refill. Absent: tenderness, pedal edema, joint swelling, calf tenderness Back exam: Present: normal inspection Neurological exam: Present: alert, oriented X3 Psychiatric exam: Present: normal affect, normal mood Skin exam: Present: warm, dry, intact, normal color. Absent: rash Course Vital Signs 07/08/23 07/08/23 10:02 10:54 Temperature 98 F Pulse Rate 102 H 68 Respiratory 18 16 Rate Blood Pressure 175/79 140/87 O2 Sat by Pulse 98 98 Oximetry Medical Decision Making - Medical Decision Making Was pt. sent in by a medical professional or institution (, PA, STRAIGHTEDGE MACHINE OPERATOR HELPER, urgent care, hospital, or snf...) When possible be specific @ -No Did you speak to anyone other than the patient for history (EMS, parent, family, police, friend...)? What history was obtained from this source @ -No Did you review nursing and triage notes (agree or disagree)? Why? @ -I reviewed and agree with nursing and triage notes Were old charts reviewed (outside hosp., previous admission, EMS record, old EK G, old radiological studies, urgent care reports/EKG's, snf records)? Report findings @ -No old charts were reviewed Differential Diagnosis (chest pain, altered mental status, abdominal pain women, abdominal pain men, vaginal bleeding, weakness, fever, dyspnea, syncope, headache, dizziness, GI bleed, back pain, seizure, CVA, palpatations, mental health, musculoskeletal)? @ -Differential Abdominal Pain Women: Appendicitis, Cholecystitis, diverticulosis, ischemic bowel, pancreatitis, hepatitis, UTI, gastroenteritis, AAA, incarcerated hernia, bowel obstruction, constipation, inflammatory bowel, hepatitis, peptic ulcer disease, splenic infarction, perforated viscus, vulvitis, ovarian torsion, PID, kidney stone, placenta abruption, this is not meant to be an all-inclusive list EKG interpreted by me (3pts min.). @ -None X-rays interpreted by me (1pt min.). @ -None done CT interpreted by me (1pt min.). @ -CT abd pelvis obtained shows no acute intraabdominal process U/S interpreted by me (1pt. min.). @ -None done What testing was considered but not performed or refused? (CT, X-rays, U/S, labs)? Why? @ -None What meds were considered but not given or refused? Why? @ -None Did you discuss the management of the patient with other professionals (professionals i.e. , PA, STRAIGHTEDGE MACHINE OPERATOR HELPER, lab, RT, psych nurse, social science manager, customer relations advisor, teacher, motorcycle police officer, keycase assembler)? Give summary @ -No Was smoking cessation discussed for >3mins.? @ -No Was critical care preformed (if so, how long)? @ -No Were there social determinants of health that impacted care today? How? (Homelessness, low income, unemployed, alcoholism, drug addiction, transportation, low edu. Level, literacy, decrease access to med. care, assisted, rehab)? @ -No Was there de-escalation of care discussed even if they declined (Discuss DNR or withdrawal of care, Hospice)? DNR status @ -No What co-morbidities impacted this encounter? (DM, HTN, Smoking, COPD, CAD, Cancer, CVA, ARF, Chemo, Hep., AIDS, mental health diagnosis, sleep apnea, morbid obesity)? @ -None Was patient admitted / discharged? Hospital course, mention meds given and route, prescriptions, significant lab abnormalities, going to OR and other pertinent info. @ -Discharged. Patient presented to the emergency department for evaluation of abdominal discomfort and reflux. Laboratory studies obtained. CBC essentially unremarkable including normal WBC at 8.7; CMP shows sodium 141, potassium 4.4; lactic acid 0.9; UA negative for infectious process. CT abdomen pelvis obtained showing no acute intra-abdominal process, complex right renal cyst. Discussed findings with patient, advised elevating head of bed, eating soft diet. Prescription sent for reglan. Advised to follow up with GI. Patient understanding and agreeable with plan. Patient stable at time of discharge. Case discussed with Dr. Young Undiagnosed new problem with uncertain prognosis? @ -No Drug Therapy requiring intensive monitoring for toxicity (Heparin, Nitro, Insulin, Cardizem)? @ -No Were any procedures done? @ -No Diagnosis/symptom? @ -Gastritis, abdominal pain Acute, or Chronic, or Acute on Chronic? @ -acute Uncomplicated (without systemic symptoms) or Complicated (systemic symptoms)? @ -uncomplicated Side effects of treatment? @ -No Exacerbation, Progression, or Severe Exacerbation? @ -No Poses a threat to life or bodily function? How? (Chest pain, USA, IA, pneumonia, PE, COPD, DKA, ARF, appy, cholecystitis, CVA, Diverticulitis, Homicidal, Suicid al, threat to staff... and all critical care pts) @ -No - Lab Data Result diagrams: 07/08/23 10:50 07/08/23 10:50 Lab Results 07/08/23 07/08/23 07/08/23 Range/Units 10:50 10:50 10:50 WBC 8.7 (3.8-10.6) k/uL RBC 4.41 (3.80-5.40) m/uL Hgb 13.8 (11.4-16.0) gm/dL Hct 43.2 (34.0-46.0) % MCV 97.9 (80.0-100.0) fL MCH 31.2 (25.0-35.0) pg MCHC 31.9 (31.0-37.0) g/dL RDW 12.7 (11.5-15.5) % Plt Count 262 (150-450) k/uL MPV 9.3 Neutrophils % 59 % Lymphocytes % 30 % Monocytes % 6 % Eosinophils % 1 % Basophils % 1 % Neutrophils # 5.1 (1.3-7.7) k/uL Lymphocytes # 2.6 (1.0-4.8) k/uL Monocytes # 0.5 (0-1.0) k/uL Eosinophils # 0.1 (0-0.7) k/uL Basophils # 0.1 (0-0.2) k/uL Sodium 141 (137-145) mmol/L Potassium 4.4 (3.5-5.1) mmol/L Chloride 106 (98-107) mmol/L Carbon Dioxide 25 (22-30) mmol/L Anion Gap 10 mmol/L BUN 21 H (7-17) mg/dL Creatinine 0.80 (0.52-1.04) mg/dL Est GFR (CKD-EPI)AfAm 88 (>60 ml/min/1.73 sqM) Est GFR (CKD-EPI)NonAf 76 (>60 ml/min/1.73 sqM) Glucose 99 (74-99) mg/dL Plasma Lactic Acid Hubert 0.9 (0.7-2.0) mmol/L Calcium 9.5 (8.4-10.2) mg/dL Total Bilirubin 0.6 (0.2-1.3) mg/dL AST 37 H (14-36) U/L ALT 50 H (4-34) U/L Alkaline Phosphatase 104 (38-126) U/L Total Protein 7.8 (6.3-8.2) g/dL Albumin 4.2 (3.5-5.0) g/dL Amylase 57 (30-110) U/L Lipase 119 (23-300) U/L Urine Color Urine Appearance (Clear) Urine pH (5.0-8.0) Ur Specific Douglas (1.001-1.035) Urine Protein (Negative) Urine Glucose (UA) (Negative) Urine Ketones (Negative) Urine Blood (Negative) Urine Nitrite (Negative) Urine Bilirubin (Negative) Urine Urobilinogen (<2.0) mg/dL Ur Leukocyte Esterase (Negative) 07/08/23 Range/Units 10:50 WBC (3.8-10.6) k/uL RBC (3.80-5.40) m/uL Hgb (11.4-16.0) gm/dL Hct (34.0-46.0) % MCV (80.0-100.0) fL MCH (25.0-35.0) pg MCHC (31.0-37.0) g/dL RDW (11.5-15.5) % Plt Count (150-450) k/uL MPV Neutrophils % % Lymphocytes % % Monocytes % % Eosinophils % % Basophils % % Neutrophils # (1.3-7.7) k/uL Lymphocytes # (1.0-4.8) k/uL Monocytes # (0-1.0) k/uL Eosinophils # (0-0.7) k/uL Basophils # (0-0.2) k/uL Sodium (137-145) mmol/L Potassium (3.5-5.1) mmol/L Chloride (98-107) mmol/L Carbon Dioxide (22-30) mmol/L Anion Gap mmol/L BUN (7-17) mg/dL Creatinine (0.52-1.04) mg/dL Est GFR (CKD-EPI)AfAm (>60 ml/min/1.73 sqM) Est GFR (CKD-EPI)NonAf (>60 ml/min/1.73 sqM) Glucose (74-99) mg/dL Plasma Lactic Acid Hubert (0.7-2.0) mmol/L Calcium (8.4-10.2) mg/dL Total Bilirubin (0.2-1.3) mg/dL AST (14-36) U/L ALT (4-34) U/L Alkaline Phosphatase (38-126) U/L Total Protein (6.3-8.2) g/dL Albumin (3.5-5.0) g/dL Amylase (30-110) U/L Lipase (23-300) U/L Urine Color Yellow Urine Appearance Clear (Clear) Urine pH 5.5 (5.0-8.0) Ur Specific Douglas 1.031 (1.001-1.035) Urine Protein Negative (Negative) Urine Glucose (UA) Negative (Negative) Urine Ketones Negative (Negative) Urine Blood Negative (Negative) Urine Nitrite Negative (Negative) Urine Bilirubin Negative (Negative) Urine Urobilinogen <2.0 (<2.0) mg/dL Ur Leukocyte Esterase Negative (Negative) Disposition Clinical Impression: Gastritis, Abdominal pain Disposition: HOME SELF-CARE Condition: Stable Instructions (If sedation given, give patient instructions): Gastritis (ED) Additional Instructions: Elevate the head of the bed, eat a soft diet. Utilize the medication prescribed. Return to the emergency department for new or worsening symptoms. Prescriptions: Metoclopramide [Reglan] 10 mg PO TID PRN #21 tab PRN Reason: Nausea Is patient prescribed a controlled substance at d/c from ED?: No Referrals: Louie Millan DO [Primary Care Provider] - 1-2 days Maira Rangel MD [STAFF PHYSICIAN] - 1-2 days
[2023-07-08 11:00] VITALS: PULSE 68; RESP 16
[2023-07-08 11:20] LABS: Basophils # (A) 0.1 k/uL (0-0.2); Basophils % (A) 1 %; Eosinophils # (A) 0.1 k/uL (0-0.7); Eosinophils % (A) 1 %; HCT 43.2 % (34.0-46.0); HGB 13.8 gm/dL (11.4-16.0); Lymphocytes # (A) 2.6 k/uL (1.0-4.8); Lymphocytes % (A) 30 %; MCH 31.2 pg (25.0-35.0); MCHC 31.9 g/dL (31.0-37.0); MCV 97.9 fL (80.0-100.0); Mean Platelet Volume 9.3; Monocytes # (A) 0.5 k/uL (0-1.0); Monocytes % (A) 6 %; Neutrophils # (A) 5.1 k/uL (1.3-7.7); Neutrophils % (A) 59 %; Platelet Count 262 k/uL (150-450); RBC 4.41 m/uL (3.80-5.40); RDW 12.7 % (11.5-15.5); WBC 8.7 k/uL (3.8-10.6)
[2023-07-08 11:29] LABS: Appearance,Urine Clear (Clear); Bilirubin,Urine Negative (Negative); Blood,Urine Negative (Negative); Color,Urine Yellow; Glucose,Urine (UA) Negative (Negative); Ketones,Urine Negative (Negative); Leukocyte Esterase,Urine Negative (Negative); Nitrite,Urine Negative (Negative); PH, Urine 5.5 (5.0-8.0); Protein,Urine Negative (Negative); Specific Gravity,Urine 1.031 (1.001-1.035); Urobilinogen,Urine <2.0 mg/dL (<2.0)
[2023-07-08 11:30] LABS: ALT 50 U/L (4-34); AST 37 U/L (14-36); African American GFR (CKD) 88 (>60 ml/min/1.73 sqM); Albumin 4.2 g/dL (3.5-5.0); Alkaline Phosphatase 104 U/L (38-126); Amylase 57 U/L (30-110); Anion Gap 10 mmol/L; Blood Urea Nitrogen 21 mg/dL (7-17); Calcium 9.5 mg/dL (8.4-10.2); Carbon Dioxide 25 mmol/L (22-30); Chloride 106 mmol/L (98-107); Glucose 99 mg/dL (74-99); Lipase 119 U/L (23-300); Non-African American GFR(CKD) 76 (>60 ml/min/1.73 sqM); Potassium 4.4 mmol/L (3.5-5.1); Sodium 141 mmol/L (137-145); Total Bilirubin 0.6 mg/dL (0.2-1.3); Total Protein 7.8 g/dL (6.3-8.2)
--- NOTE | 2023-07-08 12:49 | CT ---
EXAMINATION TYPE: CT abdomen pelvis w con CT DLP: 2180.7 mGycm, Automated exposure control for dose reduction was used. DATE OF EXAM: 07/08/2023 12:32 PM COMPARISON: CT abdomen pelvis most recent from CLINICAL INDICATION:Female, 68 years old with history of abdominal pain; abd pain TECHNIQUE: Axial CT abdomen pelvis w con;Sagittal and coronal reformats were created on a separate w orkstation. Contrast used:150 mL of Isovue 300 with IV Contrast, (none if empty) Oral contrast used: without Oral Contrast (none if empty) FINDINGS: LOWER CHEST: Unremarkable ABDOMEN LIVER: Unremarkable GALLBLADDER AND BILE DUCTS: Unremarkable. PANCREAS: Unremarkable. SPLEEN: Unremarkable. ADRENAL GLANDS: Unremarkable. KIDNEYS AND URETERS: No evidence of hydronephrosis or renal calculus. The ureters are unremarkable. Complex cyst in the right kidney with calcifications PELVIS BLADDER: Unremarkable REPRODUCTIVE: Unremarkable. ABDOMEN & PELVIS STOMACH AND BOWEL: No evidence of bowel obstruction. PERITONEUM/RETROPERITONEUM: No evidence of pneumoperitoneum or free fluid. VASCULATURE: No evidence of aortic aneurysm. MUSCULOSKELETAL: No acute osseous abnormalities LYMPH NODES: No gross evidence for lymphadenopathy. SOFT TISSUE/ABDOMINAL WALL: Unremarkable IMPRESSION: 1. No acute process is detected. 2 Complex renal cyst. Recommend follow-up CT abdomen without and with contrast
[2023-07-08] MEDS: METOCLOPRAMIDE 5 MG/ML 2 ML VIAL IVP STA (14:36)
[2023-07-08 14:43] VITALS: BP 130/68
== END 2023-07-08 14:50 | disposition home or self-care (01) ==
LOC: EC 10:01
DX: K29.70 Gastritis, unspecified, without bleeding (principal); N28.1 Cyst of kidney, acquired; Z87.891 Personal history of nicotine dependence; Z88.2 Allergy status to sulfonamides
CPT/HCPCS: 36415; 80053; 82150; 83605; 83690; 85025; 81003; 74177; 99284; 96374; 96375 ×2; 96361; J2765; J1885; C9113; Q9967

== ENCOUNTER 2023-07-10 09:56 | Observation (INO) | payer MEDICARE ==
--- NOTE | 2023-07-10 10:40 | ED ---
General Adult HPI - General Chief complaint: Nausea/Vomiting/Diarrhea Stated complaint: GI Issues Time Seen by Provider: 07/10/23 10:11 Source: patient, family, RN notes reviewed Mode of arrival: ambulatory Limitations: no limitations - History of Present Illness Initial comments: Patient is a pleasant 68-year-old female present to the emergency department with concerns with nausea vomiting diarrhea. Patient has had nausea and vomiting for a week now. Patient states episodes of emesis usually occur at nighttime over 4 hours, multiple times. Patient does have some decreased oral intake. Patient also has had a couple episodes of diarrhea/loose stools. Patient did have abdominal discomfort several days ago however none since that time. No fever. - Related Data Home Medications Medication Instructions Recorded Confirmed Baclofen 10 mg PO BID 03/12/19 07/10/23 Montelukast [Singulair] 10 mg PO DAILY 03/12/19 07/10/23 Ascorbic Acid [Vitamin C] 1,000 mg PO DAILY 07/08/23 07/10/23 Cholecalciferol [Vitamin D3 (125 125 mcg PO DAILY 07/08/23 07/10/23 Mcg = 5000 Iu)] Ibuprofen [Motrin] 800 mg PO Q8H PRN 07/08/23 07/10/23 Multivit-Minerals/Folic Acid 0.4 mg PO DAILY 07/08/23 07/10/23 [One-A-Day Women's 50 Plus Tab] Previous Rx's Medication Instructions Recorded Metoclopramide [Reglan] 10 mg PO TID PRN #21 tab 07/08/23 Allergies Allergy/AdvReac Type Severity Reaction Status Date / Time Sulfa (Sulfonamide Allergy Swelling Verified 07/10/23 10:40 Antibiotics) Review of Systems ROS Statement: Those systems with pertinent positive or pertinent negative responses have been documented in the HPI. ROS Other: All systems not noted in ROS Statement are negative. Constitutional: Denies: fever Eyes: Denies: eye pain ENT: Denies: ear pain Respiratory: Denies: cough Cardiovascular: Denies: chest pain Gastrointestinal: Reports: as per HPI, nausea, vomiting, diarrhea Musculoskeletal: Denies: back pain Past Medical History Past Medical History: Hyperlipidemia Additional Past Medical History / Comment(s): MS; History of Any Multi-Drug Resistant Organisms: None Reported Additional Past Surgical History / Comment(s): bilateral ganglion cyst removal; excision of fatty tumor under left breast; perforated bowel; Past Anesthesia/Blood Transfusion Reactions: No Reported Reaction Past Psychological History: No Psychological Hx Reported Smoking Status: Former smoker Past Alcohol Use History: None Reported Past Drug Use History: None Reported - Past Family History Mother Family Medical History: Asthma Additional Family Medical History / Comment(s): diverticulitis Father Family Medical History: Coronary Artery Disease (CAD), Hypertension General Exam Limitations: no limitations General appearance: alert, in no apparent distress Head exam: Present: normocephalic Eye exam: Present: normal appearance Neck exam: Present: normal inspection Respiratory exam: Present: normal lung sounds bilaterally Cardiovascular Exam: Present: normal rhythm, tachycardia Expanded Peripheral pulses: 2+: Posterior Tibialis (R), Posterior Tibialis (L) GI/Abdominal exam: Present: soft, normal bowel sounds. Absent: distended, tenderness, guarding, rebound, rigid, pulsatile mass Extremities exam: Present: normal inspection Neurological exam: Present: alert Psychiatric exam: Present: normal affect, normal mood Skin exam: Present: normal color Course Vital Signs 07/10/23 07/10/23 07/10/23 10:07 11:17 12:25 Temperature 98.4 F 98.8 F Pulse Rate 112 H 95 79 Respiratory 20 17 16 Rate Blood Pressure 142/82 132/64 139/70 O2 Sat by Pulse 99 95 97 Oximetry Medical Decision Making - Medical Decision Making Was pt. sent in by a medical professional or institution (WILLIAN Espino, INSTRUMENTATION CHEMIST, urgent care, hospital, or [facility]...) When possible be specific @ -Patient was sent in by her primary care for Did you speak to anyone other than the patient for history (EMS, parent, family, police, friend...)? What history was obtained from this source @ - is present helps confirm history including onset Did you review nursing and triage notes (agree or disagree)? Why? @ -I reviewed and agree with nursing and triage notes Were old charts reviewed (outside hosp., previous admission, EMS record, old EKG, old radiological studies, urgent care reports/EKG's, [facility] records)? Report findings @ -Previous labs reviewed Differential Diagnosis (chest pain, altered mental status, abdominal pain women, abdominal pain men, vaginal bleeding, weakness, fever, dyspnea, syncope, headache, dizziness, GI bleed, back pain, seizure, CVA, palpatations, mental health, musculoskeletal)? @ -Differential Abdominal Pain Women: Appendicitis, Cholecystitis, diverticulosis, ischemic bowel, pancreatitis, hepatitis, UTI, gastroenteritis, AAA, incarcerated hernia, bowel obstruction, constipation, inflammatory bowel, hepatitis, peptic ulcer disease, splenic infarction, perforated viscus, vulvitis, ovarian torsion, PID, kidney stone, placenta abruption, this is not meant to be an all-inclusive list EKG interpreted by me (3pts min.). @ -As above X-rays interpreted by me (1pt min.). @ -None done CT interpreted by me (1pt min.). @ -None done U/S interpreted by me (1pt. min.). @ -None done What testing was considered but not performed or refused? (CT, X-rays, U/S, l abs)? Why? @ -None What meds were considered but not given or refused? Why? @ -None Did you discuss the management of the patient with other professionals (professionals i.e. , PA, INSTRUMENTATION CHEMIST, lab, RT, psych nurse, social service liaison, finishing manager, teacher, chief clinical officer, case repairer)? Give summary @ -Case was discussed with Dr. Jalloh who will admit covering for Dr. Davis Was smoking cessation discussed for >3mins.? @ -No Was critical care preformed (if so, how long)? @ -No Were there social determinants of health that impacted care today? How? (Homelessness, low income, unemployed, alcoholism, drug addiction, transportation, low edu. Level, literacy, decrease access to med. care, custodial, rehab)? @ -No Was there de-escalation of care discussed even if they declined (Discuss DNR or withdrawal of care, Hospice)? DNR status @ -No What co-morbidities impacted this encounter? (DM, HTN, Smoking, COPD, CAD, Cancer, CVA, ARF, Chemo, Hep., AIDS, mental health diagnosis, sleep apnea, morbid obesity)? @ -None Was patient admitted / discharged? Hospital course, mention meds given and route, prescriptions, significant lab abnormalities, going to OR and other pertinent info. @ -Patient states she was sent by her doctor to be admitted for scope. Case discussed with Dr. Jalloh who will admit covering Dr. Davis. Admission orders written. GI consult will be placed. Undiagnosed new problem with uncertain prognosis? @ -No Drug Therapy requiring intensive monitoring for toxicity (Heparin, Nitro, Insulin, Cardizem)? @ -No Were any procedures done? @ -No Diagnosis/symptom? @ -Vomiting, dysphagia Acute, or Chronic, or Acute on Chronic? @ -Acute, acute Uncomplicated (without systemic symptoms) or Complicated (systemic symptoms)? @ -Default Side effects of treatment? @ -No Exacerbation, Progression, or Severe Exacerbation? @ -No Poses a threat to life or bodily function? How? (Chest pain, [place], [place], pneumonia, PE, COPD, DKA, ARF, appy, cholecystitis, CVA, Diverticulitis, Homicidal, Suicidal, threat to staff... and all critical care pts) @ -No - Lab Data Result diagrams: 07/10/23 10:40 07/10/23 10:40 Lab Results 07/10/23 07/10/23 Range/Units 10:40 10:40 WBC 13.3 H (3.8-10.6) k/uL RBC 4.34 (3.80-5.40) m/uL Hgb 13.5 (11.4-16.0) gm/dL Hct 41.8 (34.0-46.0) % MCV 96.4 (80.0-100.0) fL MCH 31.1 (25.0-35.0) pg MCHC 32.3 (31.0-37.0) g/dL RDW 12.7 (11.5-15.5) % Plt Count 237 (150-450) k/uL MPV 9.1 Neutrophils % 83 % Lymphocytes % 11 % Monocytes % 5 % Eosinophils % 0 % Basophils % 0 % Neutrophils # 11.0 H (1.3-7.7) k/uL Lymphocytes # 1.4 (1.0-4.8) k/uL Monocytes # 0.7 (0-1.0) k/uL Eosinophils # 0.1 (0-0.7) k/uL Basophils # 0.0 (0-0.2) k/uL Sodium 140 (137-145) mmol/L Potassium 3.7 (3.5-5.1) mmol/L Chloride 108 H (98-107) mmol/L Carbon Dioxide 20 L (22-30) mmol/L Anion Gap 12 mmol/L BUN 16 (7-17) mg/dL Creatinine 0.69 (0.52-1.04) mg/dL Est GFR (CKD-EPI)AfAm >90 (>60 ml/min/1.73 sqM) Est GFR (CKD-EPI)NonAf 90 (>60 ml/min/1.73 sqM) Glucose 104 H (74-99) mg/dL Calcium 9.1 (8.4-10.2) mg/dL Total Bilirubin 0.9 (0.2-1.3) mg/dL AST 31 (14-36) U/L ALT 35 H (4-34) U/L Alkaline Phosphatase 102 (38-126) U/L Total Protein 7.4 (6.3-8.2) g/dL Albumin 3.9 (3.5-5.0) g/dL Amylase 60 (30-110) U/L Lipase 107 (23-300) U/L Disposition Clinical Impression: Dysphagia, Vomiting Disposition: ADMITTED IP TO THIS [facility] Is patient prescribed a controlled substance at d/c from ED?: No Referrals: Louie Millan DO [Primary Care Provider] - 1-2 days Time of Disposition: 13:01
[2023-07-10 11:16] LABS: Basophils % (A) 0 %; Eosinophils # (A) 0.1 k/uL (0-0.7); Eosinophils % (A) 0 %; HCT 41.8 % (34.0-46.0); HGB 13.5 gm/dL (11.4-16.0); Lymphocytes # (A) 1.4 k/uL (1.0-4.8); Lymphocytes % (A) 11 %; MCH 31.1 pg (25.0-35.0); MCHC 32.3 g/dL (31.0-37.0); MCV 96.4 fL (80.0-100.0); Mean Platelet Volume 9.1; Monocytes # (A) 0.7 k/uL (0-1.0); Monocytes % (A) 5 %; Neutrophils % (A) 83 %; Platelet Count 237 k/uL (150-450); RBC 4.34 m/uL (3.80-5.40); RDW 12.7 % (11.5-15.5); WBC 13.3 k/uL (3.8-10.6)
[2023-07-10] MEDS: FAMOTIDINE 20 MG/2 ML VIAL IV STA (11:18)
[2023-07-10] MEDS: SODIUM CHLORIDE 0.9% 1,000 ML IV STA (11:20)
[2023-07-10] MEDS: ONDANSETRON 4 MG/2 ML VIAL IVP STA (11:47)
[2023-07-10] MEDS: DICYCLOMINE 10 MG/ML 2 ML AMP IM STA (11:48)
[2023-07-10 11:50] LABS: ALT 35 U/L (4-34); AST 31 U/L (14-36); African American GFR (CKD) >90 (>60 ml/min/1.73 sqM); Albumin 3.9 g/dL (3.5-5.0); Alkaline Phosphatase 102 U/L (38-126); Amylase 60 U/L (30-110); Anion Gap 12 mmol/L; Blood Urea Nitrogen 16 mg/dL (7-17); Calcium 9.1 mg/dL (8.4-10.2); Carbon Dioxide 20 mmol/L (22-30); Chloride 108 mmol/L (98-107); Glucose 104 mg/dL (74-99); Lipase 107 U/L (23-300); Non-African American GFR(CKD) 90 (>60 ml/min/1.73 sqM); Potassium 3.7 mmol/L (3.5-5.1); Sodium 140 mmol/L (137-145); Total Bilirubin 0.9 mg/dL (0.2-1.3); Total Protein 7.4 g/dL (6.3-8.2)
[2023-07-10] MEDS: ACETAMINOPHEN TAB 500 MG TAB PO STA (12:29)
[2023-07-10] MEDS ORDERED: ONDANSETRON 4 MG/2 ML VIAL IVP PRN (13:01)
[2023-07-10] MEDS ORDERED: NALOXONE 0.4 MG/ML 1 ML VIAL IV PRN (13:01)
[2023-07-10] MEDS: SODIUM CHLORIDE 0.9% 1,000 ML IV SCH (13:18)
--- NOTE | 2023-07-10 14:47 | P.HPIM ---
History of Present Illness H&P Date: 07/10/23 Patient is a 68-year-old female with history of asthma presenting with nausea, vomiting, and diarrhea. She is also having a sensation of food getting stuck in her epigastric region. When she notices food getting stuck, she has nausea and vomiting to that. She has noted a sensation with both solids and liquids. She denies any fevers, chills, abdominal pain, chest pain, shortness of breath, or urinary complaints. She denies any smoking, alcohol use, or illicit drug use. In the ED, temperature was 98.4, pulse 112, respiratory rate 20, blood pressure 142/82, saturating at 99% on room air. WBC 13.3, bicarb 20, anion gap 12, creatinine 0.69, lipase 107. CT abdomen pelvis completed 2 days ago showed no acute process, complex renal cyst, recommended follow-up CT abdomen without and with contrast. Patient was given 1 L of normal saline in the ED, IV Zofran, IM Bentyl, oral Tylenol, IV Protonix, IV Pepcid. GI consulted. Pertinent positives and negatives as discussed in HPI, a complete review of systems was performed and all other systems are negative. Patient seen and examined at bedside. Vital signs reviewed General: nontoxic, no distress, appears at stated age Derm: warm, dry Head: atraumatic, normocephalic, symmetric Eyes: EOMI, no lid lag, anicteric sclera, pupils equal round reactive to light ENT: Nose and ears atraumatic Neck: No thyromegaly, supple Mouth: no lip lesion, mucus membranes moist Cardiovascular: S1S2 reg, no murmur, no edema Lungs: clear to auscultation bilateral, no rhonchi, no rales, no wheeze, no accessory muscle use Abdominal: soft, nontender to palpation, no guarding, no appreciable organomegaly Ext: no gross muscle atrophy, muscle strength muscle strength 5 out of 5 in all 4 extremities, no contractures Neuro: CN II-XII grossly intact Psych: Alert, oriented, appropriate affect Assessment/Plan: Active: Esophageal dysphagia Nausea/vomiting Leukocytosis, reactive Non-anion gap metabolic acidosis Continue supportive care with Zofran IV 4 mg every 8 hours as needed, IV pantoprazole 40 daily, normal saline at 75 cc an hour GI consulted, keep n.p.o. after midnight, possible EGD depending on their assessment Repeat CBC and BMP tomorrow Chronic: Asthma The patient is admitted with an anticipated less than than 2 midnight stay as observation status for evaluation of esophageal dysphagia. Surrogate decision-maker: Spouse CODE STATUS: Full code DVT prophylaxis: SCDs Anticipated discharge date: Pending clinical course Anticipated discharge place: Pending clinical course A total of 55 minutes was spent on the care of this complex patient more than 50% of the time was spent in counseling and care coordination. Past Medical History Past Medical History: Hyperlipidemia Additional Past Medical History / Comment(s): MS; History of Any Multi-Drug Resistant Organisms: None Reported Additional Past Surgical History / Comment(s): bilateral ganglion cyst removal; excision of fatty tumor under left breast; perforated bowel; Past Anesthesia/Blood Transfusion Reactions: No Reported Reaction Past Psychological History: No Psychological Hx Reported Smoking Status: Former smoker Past Alcohol Use History: None Reported Past Drug Use History: None Reported - Past Family History Mother Family Medical History: Asthma Additional Family Medical History / Comment(s): diverticulitis Father Family Medical History: Coronary Artery Disease (CAD), Hypertension Medications and Allergies Home Medications Medication Instructions Recorded Confirmed Type Baclofen 10 mg PO BID 03/12/19 07/10/23 History Montelukast [Singulair] 10 mg PO DAILY 03/12/19 07/10/23 History Ascorbic Acid [Vitamin C] 1,000 mg PO DAILY 07/08/23 07/10/23 History Cholecalciferol [Vitamin D3 (125 125 mcg PO DAILY 07/08/23 07/10/23 History Mcg = 5000 Iu)] Ibuprofen [Motrin] 800 mg PO Q8H PRN 07/08/23 07/10/23 History Metoclopramide [Reglan] 10 mg PO TID PRN #21 tab 07/08/23 07/10/23 Rx Multivit-Minerals/Folic Acid 0.4 mg PO DAILY 07/08/23 07/10/23 History [One-A-Day Women's 50 Plus Tab] Allergies Allergy/AdvReac Type Severity Reaction Status Date / Time Sulfa (Sulfonamide Allergy Swelling Verified 07/10/23 10:40 Antibiotics) Physical Exam Vitals: Vital Signs Temp Pulse Resp BP Pulse Ox 07/10/23 13:19 98.6 F 90 17 139/67 99 07/10/23 12:25 98.8 F 79 16 139/70 97 07/10/23 11:17 95 17 132/64 95 07/10/23 10:07 98.4 F 112 H 20 142/82 99 Intake and Output 07/09/23 07/10/23 07/10/23 22:59 06:59 14:59 Other: Weight 77.111 kg Results CBC & Chem 7: 07/10/23 10:40 07/10/23 10:40 Labs: Abnormal Lab Results - Last 24 Hours (Table) 07/10/23 07/10/23 Range/Units 10:40 10:40 WBC 13.3 H (3.8-10.6) k/uL Neutrophils # 11.0 H (1.3-7.7) k/uL Chloride 108 H (98-107) mmol/L Carbon Dioxide 20 L (22-30) mmol/L Glucose 104 H (74-99) mg/dL ALT 35 H (4-34) U/L
[2023-07-10] MEDS: KETOROLAC 15 MG/ML 1 ML VIAL IVP STA (16:22)
[2023-07-10] MEDS: BACLOFEN 10 MG TAB PO SCH (19:54)
[2023-07-10] MEDS: ACETAMINOPHEN TAB 325 MG TAB PO PRN (19:57)
[2023-07-11 05:40] VITALS: TEMP 97.7
[2023-07-11 08:44] LABS: Basophils # (A) 0.03 X 10*3/uL (0.00-0.10); Basophils % (A) 0.5 %; Eosinophils # (A) 0.21 X 10*3/uL (0.04-0.35); Eosinophils % (A) 3.3 %; HCT 36.4 % (37.2-46.3); HGB 11.4 g/dL (12.0-15.0); Lymphocytes # (A) 2.37 X 10*3/uL (0.90-5.00); Lymphocytes % (A) 36.9 %; MCH 30.3 pg (27.0-32.0); MCHC 31.3 g/dL (32.0-37.0); MCV 96.8 FL (80.0-97.0); Mean Platelet Volume 11.3 FL (9.5-12.2); Monocytes # (A) 0.57 X 10*3/uL (0.20-1.00); Monocytes % (A) 8.9 %; NRBC Per 100 WBC 0 X 10*3/uL (0.00-0.01); Neutrophils # (A) 3.24 X 10*3/uL (1.80-7.70); Neutrophils % (A) 50.2 %; Platelet Count 221 X 10*3/uL (140-440); RBC 3.76 X 10*6/uL (4.10-5.20); RDW 13.1 % (11.5-14.5); WBC 6.43 X 10*3/uL (4.50-10.00)
[2023-07-11 09:14] LABS: BUN/Creat Ratio 9.14 Ratio (12.00-20.00); Blood Urea Nitrogen 6.4 mg/dL (9.0-27.0); Calcium 8.6 mg/dL (8.7-10.3); Carbon Dioxide 24.2 mmol/L (21.6-31.8); Chloride 110 mmol/L (96-109); Glucose 82 mg/dL (70-110); Potassium 3.6 mmol/L (3.5-5.5); Sodium 143 mmol/L (135-145)
[2023-07-11] MEDS: MONTELUKAST 10 MG TAB PO SCH (09:38)
[2023-07-11] MEDS: PANTOPRAZOLE 40 MG/10 ML VIAL IV SCH (09:38)
[2023-07-11] MEDS ORDERED: PROPOFOL 10 MG/ML 20 ML VIAL IV ONE (10:40)
[2023-07-11] MEDS ORDERED: LIDOCAINE 1% INJ 10MG/ML (20 ML MDV) ONE (10:40)
--- NOTE | 2023-07-11 10:41 | P.CONS ---
History of Present Illness - Reason for Consult Consult date: 07/11/23 Dysphagia Requesting physician: Gustavo Thapa - Chief Complaint Nausea, vomiting and diarrhea - History of Present Illness This is a pleasant 68-year-old female who presented to the emergency department on Tuesday with complaints and concerns of abdominal discomfort, belching, diarrhea and acid reflux. She had a CT of the abdomen pelvis that showed no acute findings. She was sent home. She continued to not feel well and presented back to the emergency department yesterday again with complaints acid reflux, belching and diarrhea. She has a history of previous bowel resection and asthma. She states that she will eat meal around 2:00 in the afternoon and then she has a snack around 6 or 7 PM she will then go to bed and feels as though she is regurgitating her food and she is having acid reflux. States she eats lots of Rolaids over the last 3 weeks duration. States that she did have a history of ulcer at age 20 although no formal EGD had been done. She has no history of upper endoscopy, she had a screening colonoscopy in May 2021 which was significant for rectal polyp status post polypectomy. States that when she is eating solid foods sometimes it feels like it is getting hung up. She has been eating more of a full liquid diet over the last few days duration. Symptoms began about 3 weeks ago. She denies any shortness of breath, chest pa in, abdominal pain, fevers or chills. Review of Systems REVIEW OF SYSTEMS: CARDIOPULMONARY: No chest pain or shortness of breath. Gastrointestinal: No abdominal pain. States some bloating and gassy feeling. GERD, nausea with regurgitation. No hematemesis, coffee-ground emesis. No rectal bleeding, or melena. Diarrhea. GENITOURINARY: No dysuria or hematuria. MUSCULOSKELETAL: Reports normal range of motion., Joint pain. SKIN: No rashes. No jaundice. ENDOCRINE: No chills, fevers. No excessive weight gain or loss. No polydipsia or polyuria. PSYCHIATRIC: Unremarkable. NEUROLOGY: No change in mental status. Denies dizziness, headache. ENT: Vision unremarkable. CONSTITUTIONAL: No recent weight loss. No fever, chills, night sweats. Past Medical History Past Medical History: Hyperlipidemia Additional Past Medical History / Comment(s): MS; History of Any Multi-Drug Resistant Organisms: None Reported Additional Past Surgical History / Comment(s): bilateral ganglion cyst removal; excision of fatty tumor under left breast; perforated bowel; Past Anesthesia/Blood Transfusion Reactions: No Reported Reaction Past Psychological History: No Psychological Hx Reported Smoking Status: Former smoker Past Alcohol Use History: None Reported Past Drug Use History: None Reported - Past Family History Mother Family Medical History: Asthma Additional Family Medical History / Comment(s): diverticulitis Father Family Medical History: Coronary Artery Disease (CAD), Hypertension Medications and Allergies Home Medications Medication Instructions Recorded Confirmed Type Baclofen 10 mg PO BID 03/12/19 07/10/23 History Montelukast [Singulair] 10 mg PO DAILY 03/12/19 07/10/23 History Ascorbic Acid [Vitamin C] 1,000 mg PO DAILY 07/08/23 07/10/23 History Cholecalciferol [Vitamin D3 (125 125 mcg PO DAILY 07/08/23 07/10/23 History Mcg = 5000 Iu)] Ibuprofen [Motrin] 800 mg PO Q8H PRN 07/08/23 07/10/23 History Metoclopramide [Reglan] 10 mg PO TID PRN #21 tab 07/08/23 07/10/23 Rx Multivit-Minerals/Folic Acid 0.4 mg PO DAILY 07/08/23 07/10/23 History [One-A-Day Women's 50 Plus Tab] Allergies Allergy/AdvReac Type Severity Reaction Status Date / Time Sulfa (Sulfonamide Allergy Swelling Verified 07/10/23 10:40 Antibiotics) Physical Exam Vitals: Vital Signs Temp Pulse Pulse Resp BP BP Pulse Ox 07/11/23 07:00 97.7 F 60 18 145/79 98 07/11/23 02:00 97.7 F 68 16 121/73 99 07/10/23 20:00 98.1 F 71 16 130/78 97 07/10/23 14:51 88 16 07/10/23 14:07 98.3 F 88 16 149/79 100 07/10/23 13:19 98.6 F 90 17 139/67 99 07/10/23 12:25 98.8 F 79 16 139/70 97 07/10/23 11:17 95 17 132/64 95 Intake and Output 07/10/23 07/11/23 07/11/23 22:59 06:59 14:59 Intake Total 0 Balance 0 Intake: Oral 0 Other: Voiding Method Toilet # Voids 1 2 General appearance: The patient is alert, oriented, appears in no acute distre ss. HET: Head is normocephalic and atraumatic. Conjunctiva pink. Sclera anicteric. Neck: Supple without lymphadenopathy. Trachea midline. Heart: Regular. Lungs: Equal expansion, normal respiratory effort. Abdomen: Soft, nontender, nondistended with bowel sounds. No guarding or rigidity. Skin: No rashes. No jaundice. Extremities: Normal skin color and turgor. No pedal edema. Neurological: No focal deficits. Alert and oriented x3. Results CBC & Chem 7: 07/11/23 05:45 07/11/23 05:45 Labs: Abnormal Lab Results - Last 24 Hours (Table) 07/10/23 07/10/23 07/11/23 Range/Units 10:40 10:40 05:45 WBC 13.3 H (3.8-10.6) k/uL RBC 3.76 L (4.10-5.20) X 10*6/uL Hgb 11.4 L (12.0-15.0) g/dL Hct 36.4 L (37.2-46.3) % MCHC 31.3 L (32.0-37.0) g/dL Neutrophils # 11.0 H (1.3-7.7) k/uL Chloride 108 H (98-107) mmol/L Carbon Dioxide 20 L (22-30) mmol/L BUN (9.0-27.0) mg/dL BUN/Creatinine Ratio (12.00-20.00) Ratio Glucose 104 H (74-99) mg/dL Calcium (8.7-10.3) mg/dL ALT 35 H (4-34) U/L 07/11/23 Range/Units 05:45 WBC (3.8-10.6) k/uL RBC (4.10-5.20) X 10*6/uL Hgb (12.0-15.0) g/dL Hct (37.2-46.3) % MCHC (32.0-37.0) g/dL Neutrophils # (1.3-7.7) k/uL Chloride 110 H (98-107) mmol/L Carbon Dioxide (22-30) mmol/L BUN 6.4 L (9.0-27.0) mg/dL BUN/Creatinine Ratio 9.14 L (12.00-20.00) Ratio Glucose (74-99) mg/dL Calcium 8.6 L (8.7-10.3) mg/dL ALT (4-34) U/L Assessment and Plan (1) Dysphagia Narrative/Plan: 68-year-old female having symptoms of acid reflux, diarrhea and abdominal bloating and belching for the last week 3 weeks duration. history of previous peptic ulcer disease in her 20s. No recent endoscopic evaluation. Need to consider possible etiologies as esophageal stricture, peptic ulcer disease, or other etiologies. May also be dealing with gastritis or viral enteritis as patient has as well been having diarrhea. Will plan for upper endoscopy today. Continue with symptomatic care including Protonix and Zofran as needed. Current Visit: Yes Status: Acute Code(s): R13.10 - DYSPHAGIA, UNSPECIFIED SNOMED Code(s): 58214774 (2) GERD (gastroesophageal reflux disease) Current Visit: Yes Status: Acute Code(s): K21.9 - GASTRO-ESOPHAGEAL REFLUX DISEASE WITHOUT ESOPHAGITIS SNOMED Code(s): 031005952 (3) Diarrhea Current Visit: Yes Status: Acute Code(s): R19.7 - DIARRHEA, UNSPECIFIED SNOMED Code(s): 04570813 Plan: 1. Continue symptomatic and supportive care 2. Keep n.p.o. 3. Continue Protonix 40 mg IV push 4. Zofran as needed 5. Will plan for EGD today 6. Further recommendations forthcoming pending upper endoscopy Thank you for this consultation, we will continue to follow. Dr. Rusty Rangel I agree with the dictator's note, documented as a scribe by Paula Sagastume.
[2023-07-11] MEDS: IV FLUID CONTINUATION 1,000 ML IV ONE (10:43)
--- NOTE | 2023-07-11 10:59 | P.PCN ---
Date of Procedure: 07/11/23 Procedure(s) Performed: BRIEF HISTORY: Patient is a A 60-year-old, pleasant, White female admitted hospital with a passive regurgitation, abdominal bloating and belching on and off for the last 1 week duration.She also has been complaining of intermittent dysphagia to solids. She is been on Protonix 40 mg twice daily and still remains symptomatic and hence scheduled for an upper endoscopy to evaluate further. PROCEDURE PERFORMED: EsophagogastroduodenoscopyWith biopsy. PREOPERATIVE DIAGNOSIS: Excessive belching/bloating and passive regurgitation of 1 day duration. IV sedation per anesthesia. PROCEDURE: After informed consent was obtained, the patient was brought into the endoscopy unit. IV sedation was administered by Anesthesia under continuous monitoring. Initially the Olympus GIF-140 video endoscope was inserted into the mouth. Esophagus intubated without any difficulty. It was gradually advanced into the stomach and duodenum and carefully examined. The bulb and the second part of the duodenum appeared normal. The scope at this time was withdrawn to the stomach, adequately insufflated with air, and upon careful examination, mucosa of the antrum,Had mild gastritis and biopsies were done from this area.Mucosa of the body, cardia and the fundus appeared normal. The scope was then withdrawn into the esophagus. Small hiatal hernia noted.The GE junction was located at 39 cm from the incisors. The esophagus appeared normal. There were no erosions or ulcerations seen, Biopsies were done from the distal side and the patient tolerated the procedure well. IMPRESSION: 1.Mild antral gastritis. 2.Small hiatal hernia. 3.No evidence of esophagitis or esophageal stricture RECOMMENDATIONS: The findings of this examination were discussed with the patient As well as her family. She was advised to follow with the biopsy results. Advance diet as tolerated. Continue with small frequent meals. Continue with Protonix 40 mg twice daily and follow antireflux measures
--- NOTE | 2023-07-11 14:41 | P.DS ---
Providers Date of admission: 07/10/23 13:04 Expected date of discharge: 07/11/23 Attending physician: Gustavo Thapa MD Consults: 07/10/23 13:01 Consult Physician Routine Consulting Provider: Maira Rangel Consult Reason/Comments: EGD, dysphagia Do you want consulting provider notified?: Yes [facility] Course: Discharge Diagnosis: Mild antral gastritis Small hiatal hernia History of asthma Hospital Course: Patient is a 68-year-old female with history of asthma presenting with nausea, vomiting, and diarrhea. In the ED, temperature was 98.4, pulse 112, respiratory rate 20, blood pressure 142/82, saturating at 99% on room air. WBC 13.3, bicarb 20, anion gap 12, creatinine 0.69, lipase 107. CT abdomen pelvis completed 2 days ago showed no acute process, complex renal cyst, recommended follow-up CT abdomen without and with contrast. Patient was given 1 L of normal saline in the ED, IV Zofran, IM Bentyl, oral Tylenol, IV Protonix, IV Pepcid. GI consulted. EGD completed showed mild antral gastritis, hiatal hernia. Patient started on Protonix twice daily. Follow-up outpatient with PCP and GI Patient seen and examined at bedside. Vital signs reviewed and stable. General: Nontoxic, no distress, appears at stated age Derm: Warm, dry Head: Atraumatic, normocephalic, symmetric Eyes: EOMI, no lid lag, anicteric sclera Mouth: No lip lesion, mucus membranes moist Cardiovascular: S1S2 reg, no murmur Lungs: CTA bilateral, no rhonchi, no rales, no accessory muscle use Abdominal: Soft, nontender to palpation, no guarding, no appreciable organomegaly Ext: No gross muscle atrophy, no edema, no contractures Neuro: CN II-XI grossly intact, no focal neuro deficits Psych: Alert, oriented, appropriate affect A total of 33 minutes of time were spent preparing this complex discharge summary. Patient was discharged on 07/11/2023 at 1439. Patient Condition at Discharge: Stable Plan - Discharge Summary Discharge Rx Participant: No New Discharge Prescriptions: New Pantoprazole [Protonix] 40 mg PO AC-BID #60 tab Continue Montelukast [Singulair] 10 mg PO DAILY Baclofen 10 mg PO BID Cholecalciferol [Vitamin D3 (125 Mcg = 5000 Iu)] 125 mcg PO DAILY Ascorbic Acid [Vitamin C] 1,000 mg PO DAILY Metoclopramide [Reglan] 10 mg PO TID PRN #21 tab PRN Reason: Nausea Multivit-Minerals/Folic Acid [One-A-Day Women's 50 Plus Tab] 0.4 mg PO DAILY Discontinued Ibuprofen [Motrin] 800 mg PO Q8H PRN PRN Reason: Pain Discharge Medication List Baclofen 10 mg PO BID 03/12/19 [History] Montelukast [Singulair] 10 mg PO DAILY 03/12/19 [History] Ascorbic Acid [Vitamin C] 1,000 mg PO DAILY 07/08/23 [History] Cholecalciferol [Vitamin D3 (125 Mcg = 5000 Iu)] 125 mcg PO DAILY 07/08/23 [History] Metoclopramide [Reglan] 10 mg PO TID PRN #21 tab 07/08/23 [Rx] Multivit-Minerals/Folic Acid [One-A-Day Women's 50 Plus Tab] 0.4 mg PO DAILY 07/08/23 [History] Pantoprazole [Protonix] 40 mg PO AC-BID #60 tab 07/11/23 [Rx] Follow up Appointment(s)/Referral(s): Louie Millan DO [Primary Care Provider] - 1-2 days Maira Rangel MD [STAFF PHYSICIAN] - 4 Weeks Patient Instructions/Handouts: Gastritis (DC), GERD (Gastroesophageal Reflux Disease) (DC) Activity/Diet/Wound Care/Special Instructions: Please see PCP and GI. Discharge Disposition: HOME SELF-CARE
[2023-07-11 15:44] VITALS: BP 138/72; PULSE 77; RESP 16
[2023-07-11] MEDS ORDERED: PANTOPRAZOLE 40 MG TABLET PO SCH (17:30)
[2023-07-11] MEDS ORDERED: PANTOPRAZOLE 40 MG/10 ML VIAL IV SCH (21:00)
== END 2023-07-11 15:28 | disposition home or self-care (01) ==
LOC: EC 09:56 → 6NMEDSUR 13:04
PROVIDERS: ADMIT Student in an Organized Health Care Education/Training Program; ATTEND Student in an Organized Health Care Education/Training Program
DX: K29.70 Gastritis, unspecified, without bleeding (principal); K44.9 Diaphragmatic hernia without obstruction or gangrene; J45.909 Unspecified asthma, uncomplicated; E78.5 Hyperlipidemia, unspecified; I10 Essential (primary) hypertension
CPT/HCPCS: 96361; 96375 ×2; 96365; 96372; 99285; 36415; 88305; 80053; 80048; 82150; 83690; 85025 ×2; 43239; G0378 ×2; J0500; J2405; J2001; J3490; J1885; J2704; C9113

== ENCOUNTER → 2024-01-09 | Outpatient (CLI) | payer MEDICARE ==
[2024-01-09 08:42] LABS: Basophils # (A) 0.1 k/uL (0-0.2); Basophils % (A) 1 %; Eosinophils # (A) 0.1 k/uL (0-0.7); Eosinophils % (A) 2 %; HCT 41.8 % (34.0-46.0); HGB 13.4 gm/dL (11.4-16.0); Lymphocytes # (A) 2.8 k/uL (1.0-4.8); Lymphocytes % (A) 46 %; MCH 31.5 pg (25.0-35.0); MCV 98.4 fL (80.0-100.0); Mean Platelet Volume 8.2; Monocytes # (A) 0.4 k/uL (0-1.0); Monocytes % (A) 7 %; Neutrophils # (A) 2.4 k/uL (1.3-7.7); Neutrophils % (A) 40 %; Platelet Count 250 k/uL (150-450); RBC 4.25 m/uL (3.80-5.40); RDW 12.5 % (11.5-15.5)
[2024-01-09 08:58] LABS: ALT 89 U/L (4-34); AST 69 U/L (14-36); African American GFR (CKD) 77 (>60 ml/min/1.73 sqM); Alkaline Phosphatase 110 U/L (38-126); Anion Gap 8 mmol/L; Blood Urea Nitrogen 19 mg/dL (7-17); Calcium 9.5 mg/dL (8.4-10.2); Carbon Dioxide 24 mmol/L (22-30); Chloride 107 mmol/L (98-107); Creatine Kinase 45 U/L (30-135); Glucose 95 mg/dL (74-99); Magnesium 1.9 mg/dL (1.6-2.3); Non-African American GFR(CKD) 67 (>60 ml/min/1.73 sqM); Potassium 4.3 mmol/L (3.5-5.1); Sodium 139 mmol/L (137-145); Total Bilirubin 0.5 mg/dL (0.2-1.3); Total Protein 7.5 g/dL (6.3-8.2)
--- NOTE | 2024-01-09 12:03 | BD ---
EXAMINATION TYPE: Axial Bone Density DATE OF EXAM: 01/09/2024 CLINICAL HISTORY: 68 years old Female. ICD-10 CODE: M85.88 OTH DISRD OF BONE DENSITY AND STRUCTURE, OT Height: 62.7in Weight: 172lb FRAX RISK QUESTIONS: History of Fracture in Adulthood: yes Secondary Osteoporosis: RISK FACTORS HISTORY OF: MEDICATIONS: EXAM MEASUREMENTS: Bone mineral densitometry was performed using the [employer]. Bone mineral density as measured about the Lumbar spine is: ----- L1-L4(G/cm2): 0.918 T Score Values are as follows: ----- L1: -3.3 ----- L2: -2.1 ----- L3: -1.7 ----- L4: -1.9 ----- L1-L4: -2.2 Z Score Values are as follows: ----- L1: -2.1 ----- L2: -0.9 ----- L3: -0.5 ----- L4: -0.6 ----- L1-L4: -1.0 Bone mineral density has: Decreased -3.6% since study of: 11-02-21 Bone mineral density about the R hip (g/cm2): 0.909 Bone mineral density about the L hip (g/cm2): 0.902 T Score values are as follows: -----R Neck: -1.9 -----L Neck: -2.0 -----R Total: -0.8 -----L Total: -0.8 Z Score values are as follows: -----R Neck: -0.6 -----L Neck: -0.7 -----R Total: 0.3 -----L Total: 0.2 Bone mineral density has: Decreased -4.0% since study of: 11-02-21 FRAX%s: The graph provided illustrates a 18.1% chance for a major osteoporotic fx and a 3.2% chance f or the hips probability for fx in 10 years time. IMPRESSION: Osteopenia (T Score between -2.5 and -1). There is slightly increased risk of fracture and the patient may be considered for treatment. Re-Screen 2-5 years. NOTE: T-SCORE=SD OF THE YOUNG ADULT MEAN. [facility], , 01/09/2024 12:00 PM
[2024-01-09 19:21] LABS: % Iron Saturation 16.05 (12.00-45.00); Chol/HDL Ratio 3.38 Ratio; Iron 65 UG/DL (50-170); LDL Cholesterol,Calculated 129.4 mg/dL (0.0-131.0); Total Iron Binding Capacity 405 UG/DL (228-460)
== END | disposition home or self-care (01) ==
LOC: RADBDWWP 08:00
PROVIDERS: ATTEND Internal Medicine
DX: Z00.00 Encounter for general adult medical examination without abnormal findings (principal); M85.88 Other specified disorders of bone density and structure, other site; G35 Multiple sclerosis
CPT/HCPCS: 77080; 80053; 80061; 82306; 82550; 82607; 82746; 83540; 83550; 83735; 84443; 85025

== ENCOUNTER → 2024-01-13 | Outpatient (CLI) | payer MEDICARE ==
[2024-01-13 15:47] LABS: ALT 42 U/L (8-44); AST 32 U/L (13-35); Albumin 4.1 g/dL (3.8-4.9); Albumin/Globulin Ratio 1.21 Ratio (1.60-3.17); Alkaline Phosphatase 115 U/L (41-126); Bilirubin, Conjugated <0.20 mg/dL (0.20-0.40); Bilirubin,Unconjugated >0.40 mg/dL (0.20-1.00); Blood Urea Nitrogen 22.6 mg/dL (9.0-27.0); Calcium 9.6 mg/dL (8.7-10.3); Carbon Dioxide 21.4 mmol/L (21.6-31.8); Chloride 105 mmol/L (96-109); Globulin 3.4 g/dL (1.6-3.3); Glucose 104 mg/dL (70-110); Potassium 4.6 mmol/L (3.5-5.5); Sodium 140 mmol/L (135-145); Total Bilirubin 0.6 mg/dL (0.3-1.2); Total Protein 7.5 g/dL (6.2-8.2)
[2024-01-13 16:04] LABS: Hepatitis A Antibody IgM Nonreactive (Nonreactive); Hepatitis C IgG Antibody Nonreactive (Nonreactive)
[2024-01-13 16:05] LABS: Hepatitis B Surface Antigen Nonreactive (Nonreactive)
[2024-01-13 16:28] LABS: Ceruloplasmin 26.8 mg/dL (20.0-60.0)
[2024-01-14 06:49] LABS: EBV - VCA IgM <10.0 U/mL (<36.0)
[2024-01-15 07:38] LABS: Hepatitis B Core IgM Nonreactive (Nonreactive)
[2024-01-16 12:29] LABS: Smooth Muscle Antibody 4 UNITS (<20)
== END | disposition home or self-care (01) ==
LOC: LABWHC1 11:48
PROVIDERS: ATTEND Internal Medicine
DX: R74.01 Elevation of levels of liver transaminase levels (principal)
CPT/HCPCS: 36415; 80053; 80074; 82248; 82390; 82525; 83516; 86038; 86645; 86665

== ENCOUNTER → 2024-02-03 | Outpatient (CLI) | payer MEDICARE ==
--- NOTE | 2024-02-06 10:13 | MM ---
Reason for Exam: Screening (asymptomatic). Last screening mammogram was performed 12 month(s) ago. Patient History: Menarche at age 14. First Full-Term at age 22. Postmenopausal. Patient has history of breast feeding. Patient used Hormonal Contraceptives for 15 years. Risk Values: Salma 5 year model risk: 1.4%. NCI Lifetime model risk: 4.6%. Prior Study Comparison: 07/04/2020 Left Diagnostic Mammogram, [facility]. 01/28/2022 Bilateral MG 3D screening mammo w/cad, [facility]. 02/01/2023 Bilateral MG 3D screening mammo w/cad, [facility]. Tissue Density: There are scattered areas of fibroglandular density. Findings: Analyzed By CAD. Right breast: There is no suspicious group of microcalcifications or new suspicious mass. Left breast: There is no suspicious group of microcalcifications or new suspicious mass. Overall Assessment: Negative, BI-RAD 1 Management: Screening Mammogram of both breasts in [address] [facility] will attempt to contact patient to return for supplemental views and ultrasound if indicated. Patient should continue monthly self-breast exams. A clinical breast exam by your physician is recommended on an annual basis. This exam should not preclude additional follow-up of suspicious palpable abnormalities. Note on Salma scores and lifetime risk: 1. A Salma score greater than 3% is considered moderate risk. If this is the case, consider specialist referral to assess eligibility for a risk reducing agent. 2. If overall lifetime risk for the development of breast cancer is 20% or higher, the patient may qualify for future screening with alternating mammogram and breast MRI. [facility], , 02/06/2024 10:10 AM. Electronically signed and approved by: Santiago Hayes DO
== END | disposition home or self-care (01) ==
LOC: RADMAMWWP 10:01
PROVIDERS: ATTEND Internal Medicine
DX: Z12.31 Encounter for screening mammogram for malignant neoplasm of breast
CPT/HCPCS: 77063; 77067

== ENCOUNTER → 2024-02-09 | Outpatient (CLI) | payer MEDICARE ==
--- NOTE | 2024-02-09 11:34 | US ---
EXAMINATION TYPE: US liver DATE OF EXAM: 02/09/2024 COMPARISON: CT abdomen and pelvis 07/08/2023, MR kidney 04/15/2023 CLINICAL INDICATION: Female, 68 years old with history of R74.01 ELEVATED TRANSAMINASE; Elevated live r enzymes. Hx of right renal CA removed 2 years ago. Exam limited due to bowel gas. TECHNIQUE: Grayscale and color Doppler imaging of the right upper quadrant was performed. FINDINGS: EXAM MEASUREMENTS: Liver Length: 13.9 cm Gallbladder Wall: .2 cm CBD: .5 cm Right Kidney: 8.6 x 4.5 x 3.6 cm RADIO MECHANIC NOTES: Pancreas: Obscured by bowel gas Liver: Increased attenuation Gallbladder: wnl Evidence for sonographic Dawson's sign: No CBD: wnl Right Kidney: wnl Pancreas is obscured by overlying bowel gas. Mild increased attenuation of the liver. No focal lesion identified. Gallbladder demonstrates no wall thickening, surrounding fluid or cholelithiasis. Negati ve sonographic Dawson's sign. Common bile duct is within normal limits. Right kidney demonstrates no hydronephrosis or shadowing calculi. No gross evidence of suspicious right renal lesion. IMPRESSION: 1. Mild hepatic steatosis suggested. 2. No gross evidence of suspicious right renal lesion. Evaluation is limited due to overlying bowel g as. [facility], , 02/09/2024 11:32 AM
== END | disposition home or self-care (01) ==
LOC: RADUSWWP 08:51
PROVIDERS: ATTEND Internal Medicine
CPT/HCPCS: 76705

== ENCOUNTER → 2024-07-26 | Outpatient (CLI) | payer MEDICARE ==
--- NOTE | 2024-07-26 22:02 | MR ---
EXAMINATION TYPE: MR kidney wo/w con DATE OF EXAM: 07/26/2024 12:01 PM COMPARISON: 04/15/2023 CLINICAL INDICATION: Female, 69 years old with history of D43.01 R renal mass, F/U RT Kidney cancer, TECHNIQUE: Multiplanar, multisequence images of the abdomen were obtained before and after administra tion of 7 mL intravenous Gadobutrol gadolinium contrast. IV Contrast: 7 cc Gadobutrol (None if empty) FINDINGS: There is a omental fat-containing midline ventral abdominal wall hernia measuring 8.5 cm wide extendi ng through a 1.8 cm abdominal wall defect, stable to larger in the interval. Heart normal size without pericardial effusion. Some patchy increased signal posterior lung bases pro bably atelectasis. No pleural effusion. There is some diminished signal of the liver on out of phase T1-weighted sequences suggesting mild fa tty infiltration. No biliary ductal dilatation. Portal venous system is patent. Gallbladder, adrenal glands, left kidney, spleen, and pancreas within normal limits. Redemonstrated wedge resection from the posterior upper pole of the right kidney with a nonenhancing low signal area on T2. No suspicious nodular enhancement or other enhancing renal lesion is identifie d. No hydronephrosis on either side. No dilated small bowel Mild to moderate stool burden. Mild generalized colonic diverticulosis. No lymphadenopathy or abdominal ascites fluid seen. IMPRESSION: 1. Stable resection changes in the upper pole of the right kidney. No evidence for locoregional recur rence or metastatic disease in the abdomen. 2. Mild hepatic steatosis redemonstrated. 3. Omental fat-containing ventral abdominal wall hernia is similar measuring 8.5 cm wide extending th rough a 1.8 cm abdominal wall defect. 4. Mild generalized colonic diverticulosis. [facility], Workstation: [employer]RENAE, 07/26/2024 10:00 PM
== END | disposition home or self-care (01) ==
LOC: RADMRIMAIN 10:49
PROVIDERS: ATTEND Urology
DX: K76.0 Fatty (change of) liver, not elsewhere classified (principal); K57.30 Diverticulosis of large intestine without perforation or abscess without bleeding; D41.01 Neoplasm of uncertain behavior of right kidney; K43.9 Ventral hernia without obstruction or gangrene
CPT/HCPCS: 74183; A9585